=== PATIENT | male | born 1955 | race Hispanic/Latino ===

== ENCOUNTER 2017-02-09 09:47 | Inpatient (IN) | payer SELFPAY ==
[2017-02-09] MEDS ORDERED: hydrALAZINE 20 MG/ML VIAL ONE (10:32)
[2017-02-09 10:38] LABS: White Blood Cell (WBC) Count 7.3 thou/uL (4.8-10.8)
[2017-02-09 10:39] LABS: #Basophils 0.1 thou/uL (0.0-0.2); #Eosinphils 0.1 thou/uL (0.0-0.7); #Lymphocytes 2.6 thou/uL (1.20-3.40); #Monocytes 0.4 thou/uL (0.11-0.59); #Neutrophils 4.1 thou/uL (1.40-6.50); %Basophils 0.9 % (0.0-1.0); %Eosinophils 1.3 % (0.0-10.0); %Lymphocytes 35.9 % (21.0-51.0); Hematocrit 45.9 % (42.0-52.0); Mean Platelet Volume 8.9 fL (7.4-10.4)
[2017-02-09 10:40] LABS: PTT 31.2 SEC (22.9-36.1)
[2017-02-09 10:48] LABS: ALT (SGPT) 16 U/L (8-55); AST (SGOT) 17 U/L (5-34); Alkaline Phosphatase 109 U/L (40-150); Anion Gap 12 mmol/L (10-20); BUN (Urea Nitrogen) 25 mg/dL (8.4-25.7); Bilirubin, Total 0.5 mg/dL (0.2-1.2); Calc. Creatinine Clearance 0 mL/min (70-130); Calcium 9.9 mg/dL (7.8-10.44); Carbon Dioxide 26 mmol/L (23-31); Chloride 103 mmol/L (98-107); Estimated GFR-MDRD 35; Globulin 3.7 g/dL (2.4-3.5); Protein, Total 8.1 g/dL (5.8-8.1)
[2017-02-09 10:49] LABS: Troponin I Less than 0.010 ng/mL (< 0.028)
--- NOTE | 2017-02-09 10:59 | CT ---
HEAD CT WITHOUT CONTRAST: Date: 02/09/17 COMPARISON: None. HISTORY: Hypertension and blurred vision. TECHNIQUE: Serial axial CT imaging at 5 mm intervals from vertex through skull base without contrast. FINDINGS: There is encephalomalacia within the lateral aspect of the temporal lobe on the left, evidence of vivi or insult. There is evidence of prior mastoidectomy on the left. There is evidence of prior craniotomy on the left. There is no intracranial hemorrhage, midline shift, or mass effect. No displaced calvarial fracture is seen. IMPRESSION: Encephalomalacia noted within the temporal lobe on the left, evidence of prior insult. There is evide nce of prior left-sided mastoidectomy. No intracranial hemorrhage. POS: [facility]
[2017-02-09] MEDS ORDERED: niCARdipine 20MG In NaCl 20 MG/200 ML BAG ONE (11:06)
--- NOTE | 2017-02-09 11:22 | RAD ---
1 VIEW CHEST: Date: 02/09/17 HISTORY: Hypertension. COMPARISON: None. FINDINGS: Portable upright chest demonstrates normal cardiac silhouette. Pulmonary vessels and hilum are normal . No consolidation or mass. No pneumothorax or osseous abnormalities. IMPRESSION: No acute cardiopulmonary process. POS: [facility]
[2017-02-09 12:55] LABS: Acetaminophen Less than 6.0 mcg/mL (10.0-30.0); Salicylate Less than 8.0 mg/dL (15.0-30.0)
[2017-02-09] MEDS ORDERED: HYDROcodone/Acetaminophen 5/325 mg Tablet PO PRN (14:04)
[2017-02-09] MEDS ORDERED: Ondansetron HCl/PF 4 MG/2 ML Vial IVP PRN (14:04)
[2017-02-09] MEDS ORDERED: Acetaminophen 325 MG TAB PO PRN (14:04)
[2017-02-09] MEDS ORDERED: Dextrose 5% in Water 1,000 ML IV PRN (14:04)
[2017-02-09] MEDS ORDERED: hydrALAZINE 20 MG/ML VIAL SLOW IVP PRN (14:04)
[2017-02-09] MEDS ORDERED: Dextrose 50% Abboject 50 ML SYRINGE SLOW IVP PRN (14:04)
[2017-02-09] MEDS ORDERED: Metoprolol Tartrate 25 MG TAB PO SCH (14:15)
[2017-02-09] MEDS: Sodium Chloride 0.9% 1,000 ML IV SCH (14:37)
[2017-02-09] MEDS: HumaLOG 300 UNITS/3 ML VIAL SC PRN ×2 (14:53→21:22)
--- NOTE | 2017-02-09 15:57 | ULT ---
BILATEREAL RENAL ULTRASOUND: Date: 02/09/17 HISTORY: Acute renal failure. COMPARISON: None. TECHNIQUE: Sagittal and transverse imaging of the kidneys performed. FINDINGS: Right Kidney: No hydronephrosis. 5.2 x 10.2 x 5.8 cm. Left Kidney: No hydronephrosis. 4.9 x 11.9 x 7.4 cm. Both kidneys have a normal cortical echotexture. Pre-void volume is 619 cm2. IMPRESSION: 1. No evidence of hydronephrosis. 2. Pre-void volume of 619 cm2. If there is concern for bladder outlet obstruction, consider pre and post-void imaging. POS: [facility]
--- NOTE | 2017-02-09 15:58 | ULT ---
EXAM: CAROTID ULTRASOUND 02/09/17 HISTORY: Near syncope. COMPARISON: None. TECHNIQUE: Campos scale, color flow, doppler imaging with spectral waveform analysis is performed in the carotid v ertebral arteries. FINDINGS: RIGHT CAROTID: Minimal atherosclerotic disease in the internal carotid artery. Peak systolic velocity of the common carotid artery is 116.8 cm/s. Peak systolic velocity internal carotid artery is 67.8 cm/s. Systolic I CA to CCA ratio is 0.58. Mild atherosclerotic disease involving the carotid bifurcation and proximal internal carotid artery. Peak systolic velocity of the common carotid artery is 140.4 cm/s. Peak systolic velocity internal ca rotid artery is 78.1 cm/s. Systolic ICA to CCA ratio is 0.56. Antegrade flow in bilateral vertebral arteries. IMPRESSION: Elevation of peak systolic velocities of the common carotid artery suggesting moderate (50-69%) steno sis. Better interrogation with CT angiogram of the neck is recommended. POS: [facility]
--- NOTE | 2017-02-09 16:05 | MRI ---
BRAIN MRI WITHOUT CONTRAST: CLINICAL HISTORY: Stroke. FINDINGS: There is mild prominence of the ventricular system. Susceptibility artifact involves the left cerebr al hemisphere. There is no acute territorial infarction. Multifocal susceptibility is seen, notably involving the left aspect of calvarium and within the left cerebral hemisphere, corresponding to vivi or calvarial surgery and underlying encephalomalacia. Bilateral mastoids effusions are present. Javi tral skull base flow voids are patent. IMPRESSION: 1. Susceptibility artifact of the left aspect of the calvarium and left cerebrum as above. 2. There is no acute territorial infarction or intracranial mass effect. 3. Prominent bilateral mastoid opacification. Correlate clinically. POS: [facility]
--- NOTE | 2017-02-09 16:17 | HP ---
CHIEF COMPLAINT: Blurred vision and uncontrolled high blood pressure and hyperglycemia. HISTORY OF PRESENT ILLNESS: This is a 61-year-old pleasant gentleman who was apparently in his usual state of health 6 months back when he started having blurry vision on the right side of the eye to t he point that he could just see the shadows. He did not think much about it because as he could see from his left eye and was very highly functional until about a week back when he started having blurr y vision in his left eye, which progressively worsened to the point that he could not see. He was co ncerned and he went to [facility] for a checkup where they found his blood pressure to be about in t he 200s/100s and also having high sugars. They sent him out here for further evaluation and treatmen t. The patient denies any chest pains, headaches, fever or chills, nausea or vomiting. CT scan of t he head, which was done in the ER, was negative. Chest x-ray was negative. He has been admitted wit h control of the blood pressure and evaluation of the blurry vision. The patient was put on nicardip ine drip which dropped his blood pressure to 135/73, at which point it was stopped; it is still 135; it is around 130s right now. PAST MEDICAL HISTORY: None. PAST SURGICAL HISTORY: Left ear surgery. SOCIAL HISTORY: Drinks 6 beers a day. Denies smoking or doing recreational drugs. ALLERGIES: No known drug allergies. MEDICATIONS: None. FAMILY HISTORY: Negative for diabetes and hypertension. REVIEW OF SYSTEMS: Significant for blurred vision, otherwise no fever, no chills, no headache, no ap petite, no hearing loss, no latencies. No cough, no chest pain, diarrhea, dysuria, or polyuria. No memory or mood changes. No neck pain. PHYSICAL EXAMINATION: VITAL SIGNS: The patient's blood pressure is right now 136/75, he is afebrile, pulse is 87, breathin g comfortably on room air. GENERAL: The patient is lying in bed in no apparent distress. HEENT: Atraumatic and normocephalic. Pupils equally round, react to light. Extraocular movements a re intact. Mucous membranes are moist. NECK: Supple. No JVD. CHEST: Breath sounds are heard. No rales or rhonchi. HEART: S1, S2. No murmurs or gallops. ABDOMEN: Soft. EXTREMITIES: No cyanosis, clubbing, edema. Distal pulses present. NEUROLOGICAL: Has blurred vision and cannot read. Otherwise, no cranial nerve deficits. No sensori motor deficits. LABORATORY DATA: Potassium is 4.7, creatinine is 1.96. Troponin 0.01. CT scan of the head is negat kristopher. Chest x-ray negative. EKG normal sinus rhythm at 81. ASSESSMENT AND PLAN: 1. Hypertensive emergency with vision loss, status post nicardipine drip and right now, blood pressu re is controlled. I will put him on metoprolol 25 p.o. b.i.d., hydralazine p.r.n. for blood pressure control and monitor blood pressure this hospital stay. 2. Blurry vision. Ophthalmology has been consulted. We will also consult Neurology and do the MRI, carotid Doppler, and echocardiogram of the heart. 3. Acute renal failure. We will gently hydrate him and do an ultrasound of the kidneys and monitor that. 4. Alcohol use. The patient has been counseled. 5. Hyperglycemia, possibly new onset diabetes. We will do hemoglobin A1c, insulin sliding scale, an d once kidney function has improved, we will put him on p.o. oral hypoglycemics. 6. Sequential compression devices for deep venous thrombosis prophylaxis. I will follow the labs an d work with the consultants for further caring for the patient.
[2017-02-09] MEDS ORDERED: FLU VACC QS2017-18 36 mo. & older 0.5 ML SYRINGE IM ONE (16:30)
[2017-02-09 16:59] LABS: Bilirubin Negative (Negative); Blood, Urine Trace (Negative); Glucose, Urine (Dipstick) 500 mg/dL (Negative); Ketone, Urine Negative (Negative); Nitrite Negative (Negative); Protein, Urine (Dipstick) 100 mg/dL (Neg-Trace); Urobilinogen 0.2 mg/dL (0.2-1.0)
[2017-02-09 17:02] LABS: Bacteria/HPF None Seen HPF (None Seen); Hyaline Casts/LPF 0-3 HYALINE CAST LPF (0-3 Hyaline); RBC/HPF 0-3 HPF (0-3); Squamous Epithelial None Seen HPF (0-3); WBC/HPF None Seen HPF (0-3)
[2017-02-09 17:11] LABS: Amphetamine Not Detected (NotDetected); Methadone Not Detected (NotDetected); Methamphetamine Not Detected (NotDetected)
[2017-02-09 19:35] VITALS: BMI 23.4
[2017-02-09] MEDS: Metoprolol Tartrate 25 MG TAB PO SCH (21:12)
[2017-02-09] MEDS: Famotidine 20 MG TAB PO SCH (21:12)
[2017-02-09] MEDS: Docusate 100 MG CAP PO SCH (21:13)
--- NOTE | 2017-02-09 21:57 | CON ---
DATE OF CONSULTATION: 02/09/2017 CONSULTING PHYSICIAN: Hospitalist Service. IMPRESSION: 1. 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 2. Diabetes with some peripheral neuropathy. 3. Hypertension. PLAN: As per ophthalmology's recommendations. Mr. Russ is a 61-year-old man who has been having some progressive vision difficulties ove r the last 4 months. He was noticing some blurred vision in both eyes, which has steadily worsened. It seem to take a more acute turn for the worse, so he came in for evaluation. He has not had any f ocal neurologic symptoms. His CT of brain was unremarkable. He was noted to have elevated blood sug ar and a bit hypertensive with systolics around 185/99. He is not complaining of any headache, nause a, dizziness or orbital pain. He has reported some paresthesias in his feet. He is not reporting an y lateralized weakness or numbness. PAST MEDICAL HISTORY: Otherwise, negative. ALLERGIES: None reported. SOCIAL HISTORY: No illicit drug use. FAMILY HISTORY: Not obtained. REVIEW OF SYSTEMS: Otherwise, negative. PHYSICAL EXAMINATION: VITAL SIGNS: Blood pressure 185/99, pulse 67, respirations 20, saturations 97%. HEENT: Pupils are slightly irregular in size and nonreactive, appears to be some cataracts bilateral ly in gross inspection. Movements were intact. Oropharynx is clear. EXTREMITIES: No cyanosis, clubbing or edema. NEUROLOGIC: He was alert and cooperative. His speech is fluent and clear. Cranial nerve exam was n otable for severe vision loss with the ability to count fingers at 2 feet in the right eye and only p erceive movement in the left eye. Visual field testing showed circumferential constriction of the vi marcio to a tunnel vision type pattern. Remainder of the cranial nerves were intact. Motor exam showe d good strength bilaterally. Sensation was diminished proprioception in the feet. Reflexes were abs ent at the ankles. Plantar responses were downgoing. Gait was not tested. No abnormal movements we re seen. EKG: Normal sinus rhythm. SUMMARY: This is a 61-year-old gentleman presenting with progressive blindness in both eyes . CT of the brain only shows a tiny area of ischemic injury on the left that appears old in insignif icant quantity. His exam is otherwise nonfocal with what appeared to be this as an ophthalmologic is tiffanie which is being assessed by Dr. Burgos be available if there are any further questions.
[2017-02-10] MEDS: Sodium Chloride 0.9% 1,000 ML IV SCH ×2 (03:36→21:15)
[2017-02-10 04:17] LABS: #Basophils 0.1 thou/uL (0.0-0.2); #Eosinphils 0.1 thou/uL (0.0-0.7); #Lymphocytes 3.3 thou/uL (1.20-3.40); #Monocytes 0.7 thou/uL (0.11-0.59); %Basophils 0.6 % (0.0-1.0); %Eosinophils 1.2 % (0.0-10.0); %Lymphocytes 32.3 % (21.0-51.0); %Monocytes 6.7 % (0.0-10.0); Hematocrit 39.1 % (42.0-52.0); Mean Platelet Volume 8.7 fL (7.4-10.4); Red Blood Cell (RBC) Count 4.09 mill/uL (4.70-6.10); White Blood Cell (WBC) Count 10.2 thou/uL (4.8-10.8)
[2017-02-10 04:32] LABS: Anion Gap 6 mmol/L (10-20); BUN (Urea Nitrogen) 22 mg/dL (8.4-25.7); Calc. Creatinine Clearance 47 mL/min (70-130); Calcium 8.7 mg/dL (7.8-10.44); Carbon Dioxide 27 mmol/L (23-31); Chloride 107 mmol/L (98-107); Cholesterol 159 mg/dl (< 200 Desired); Estimated GFR-MDRD 44; LDL Cholesterol, Calculated 84 mg/dL
[2017-02-10] MEDS: Aspirin 81 mg Enteric Coated Tablet PO SCH (08:11)
[2017-02-10] MEDS: Metoprolol Tartrate 25 MG TAB PO SCH ×2 (08:11→21:13)
[2017-02-10] MEDS: Famotidine 20 MG TAB PO SCH (08:11)
[2017-02-10] MEDS: Docusate 100 MG CAP PO SCH ×2 (08:11→21:13)
[2017-02-10] MEDS: hydrALAZINE 20 MG/ML VIAL SLOW IVP PRN ×2 (10:07→17:12)
--- NOTE | 2017-02-10 12:44 | PDOC.PN ---
- Subjective Encounter Start Date: 02/10/17 Encounter Start Time: 12:42 Patient seen and examined. No new complaints. No overnight events - Objective MAR Reviewed: Yes Vital Signs & Weight: Vital Signs (12 hours) Temp Pulse Resp Pulse Ox 02/10/17 10:07 74 02/10/17 08:00 99.8 F H 74 18 95 02/10/17 07:00 99.8 F H 02/10/17 04:00 98.3 F Weight Admit Weight 149 lb 14.629 oz Weight 149 lb 14.629 oz Most Recent Monitor Data Heart Rate from ECG 62 NIBP 140/66 NIBP BP-Mean 77 Respiration from ECG 12 SpO2 96 I&O: 02/09/17 02/10/17 02/11/17 06:59 06:59 06:59 Intake Total 1485 240 Output Total 1500 200 Balance -15 40 Result Diagrams: 02/10/17 03:45 02/10/17 03:45 Additional Labs: Accuchecks 02/10/17 02/10/17 02/09/17 12:19 05:52 21:18 POC Glucose 243 H 134 H 170 H 02/09/17 14:45 POC Glucose 257 H Phys Exam - Physical Examination Constitutional: NAD blurred vision Neck: no JVD Respiratory: no rales Cardiovascular: no significant murmur Gastrointestinal: non-tender Musculoskeletal: pulses present Neurological: normal sensation Psychiatric: A&O x 3 Dx/Plan (1) Blurred vision Code(s): H53.8 - OTHER VISUAL DISTURBANCES Status: Acute (2) Hypertensive emergency Code(s): I16.1 - HYPERTENSIVE EMERGENCY Status: Acute (3) Diabetes mellitus Code(s): E11.9 - TYPE 2 DIABETES MELLITUS WITHOUT COMPLICATIONS Status: Acute - Plan * metoprolol and norvasc * start glipizide * arf- slightly better * cont ivf * f/u with dr calvo as out pt for blurred vision * diabetic education
[2017-02-10] MEDS: HumaLOG 300 UNITS/3 ML VIAL SC PRN ×2 (13:13→17:08)
[2017-02-10] MEDS ORDERED: Amlodipine 5 MG TAB PO SCH (13:15)
--- NOTE | 2017-02-10 15:43 | CON ---
DATE OF CONSULTATION: 02/10/2017 HISTORY OF PRESENT ILLNESS: This is a 61-year-old gentleman from [facility], who was admitted to the hospital with symptoms of apparently blurred vision. He was found to be hyperglycemic and hypertension. He normally drinks up to 6 beers on a regular basis, but no smoking. His only past issues has been the ear problem, had some surgery in the 1980s. He takes no medications. This morning, his vision is still blurred. PAST MEDICAL HISTORY: No diabetes or hypertension. Notable for previous surgery in the left ear. CURRENT MEDICATIONS: None. ALLERGIES: None. SOCIAL AND FAMILY HISTORY: Unremarkable. REVIEW OF SYSTEMS: Otherwise negative. PHYSICAL EXAMINATION: VITAL SIGNS: Temperature 99, blood [id number], sats are 100%, respiration 22. CHEST: Decreased breath sounds without any wheezing. CARDIAC: Normal S1, S2. No gallops. ABDOMEN: Soft, no masses. LABORATORY DATA: White count 10,000, H and H is 13 and 39, platelet count is normal. Creatinine 1.60. IMAGING: Chest x-ray, no acute infiltrates. CT brain, no acute changes seen. MRI was done subsequently. Basically, no acute changes were seen. IMPRESSION: 1. Blurred vision possibly secondary to diabetes. Awaiting report from ophthalmology. 2. Diabetes. 3. Hypertension. 4. Renal failure. PLAN: Pulmonary and Critical care will see while in the ICU. Controlled blood pressure. Diabetic medications. Supportive care. He can be transferred out of the ICU. We will follow while in the ICU. CHRISTY
[2017-02-11 05:16] LABS: #Basophils 0.1 thou/uL (0.0-0.2); #Eosinphils 0.1 thou/uL (0.0-0.7); #Lymphocytes 3.5 thou/uL (1.20-3.40); #Monocytes 0.9 thou/uL (0.11-0.59); #Neutrophils 8.5 thou/uL (1.40-6.50); %Basophils 0.4 % (0.0-1.0); %Lymphocytes 26.7 % (21.0-51.0); %Monocytes 6.8 % (0.0-10.0); Hematocrit 41.3 % (42.0-52.0); Mean Platelet Volume 9.1 fL (7.4-10.4); Red Blood Cell (RBC) Count 4.32 mill/uL (4.70-6.10)
[2017-02-11] MEDS: hydrALAZINE 20 MG/ML VIAL SLOW IVP PRN ×2 (05:25→10:00)
[2017-02-11 05:31] LABS: Anion Gap 10 mmol/L (10-20); BUN (Urea Nitrogen) 23 mg/dL (8.4-25.7); Calc. Creatinine Clearance 49 mL/min (70-130); Calcium 8.7 mg/dL (7.8-10.44); Carbon Dioxide 22 mmol/L (23-31); Chloride 108 mmol/L (98-107); Estimated GFR-MDRD 47
[2017-02-11] MEDS: Aspirin 81 mg Enteric Coated Tablet PO SCH (08:46)
[2017-02-11] MEDS: Metoprolol Tartrate 50 MG TAB PO SCH ×2 (08:46→20:35)
[2017-02-11] MEDS: Docusate 100 MG CAP PO SCH ×2 (08:47→20:35)
[2017-02-11] MEDS ORDERED: Amlodipine 5 MG TAB PO SCH (09:00)
[2017-02-11] MEDS: Sodium Chloride 0.9% 1,000 ML IV SCH ×2 (09:19→22:15)
[2017-02-11] MEDS: Famotidine 20 MG TAB PO SCH (09:20)
[2017-02-11] MEDS: HumaLOG 300 UNITS/3 ML VIAL SC PRN ×2 (10:59→16:29)
--- NOTE | 2017-02-11 16:54 | PDOC.PN ---
- Subjective Encounter Start Date: 02/11/17 Encounter Start Time: 16:52 Patient seen and examined. No new complaints. No overnight events c/o eye pain - Objective MAR Reviewed: Yes Vital Signs & Weight: Vital Signs (12 hours) Temp Pulse Pulse Pulse Resp BP BP 02/11/17 16:00 98.6 F 02/11/17 14:14 69 68 149/68 H 02/11/17 11:52 98.3 F 02/11/17 10:00 96 179/91 H 02/11/17 09:20 96 179/91 H 02/11/17 08:00 98.3 F 96 17 02/11/17 07:00 98.3 F 02/11/17 05:25 68 177/92 H BP Pulse Ox Pulse Ox Pulse Ox 02/11/17 16:00 02/11/17 14:14 120/69 97 97 02/11/17 11:52 02/11/17 10:00 02/11/17 09:20 02/11/17 08:00 98 02/11/17 07:00 02/11/17 05:25 Weight Admit Weight 149 lb 14.629 oz Weight 150 lb 2.157 oz Most Recent Monitor Data Heart Rate from ECG 64 NIBP 153/80 NIBP BP-Mean 92 Respiration from ECG 10 SpO2 96 I&O: 02/10/17 02/11/17 02/12/17 06:59 06:59 06:59 Intake Total 1485 1750 1200 Output Total 1500 2050 1600 Balance -15 300 -400 Result Diagrams: 02/11/17 04:17 02/11/17 04:17 Additional Labs: Accuchecks 02/11/17 02/11/17 02/11/17 16:27 10:56 05:30 POC Glucose 222 H 236 H 132 H 02/10/17 21:08 POC Glucose 178 H Phys Exam - Physical Examination Constitutional: NAD tearing noted Neck: no JVD Respiratory: no wheezing Cardiovascular: no significant murmur Gastrointestinal: non-tender Musculoskeletal: pulses present Neurological: moves all 4 limbs Psychiatric: A&O x 3 Dx/Plan (1) Blurred vision Code(s): H53.8 - OTHER VISUAL DISTURBANCES Status: Acute (2) Hypertensive emergency Code(s): I16.1 - HYPERTENSIVE EMERGENCY Status: Acute (3) Diabetes mellitus Code(s): E11.9 - TYPE 2 DIABETES MELLITUS WITHOUT COMPLICATIONS Status: Acute - Plan * f/u dr calvo plan * control htn and dm * add norvasc and metoprolol
--- NOTE | 2017-02-11 17:02 | PRG ---
DATE OF SERVICE: 02/11/2017 SUBJECTIVE: Awake, alert, responsive. OBJECTIVE: VITAL SIGNS: Blood pressure is 170/83, SATs 97%, respirations 18. CHEST: Decreased breath sounds, no wheezing. CARDIAC: Normal S1, S2. ABDOMEN: Soft. No masses. LABORATORY DATA: White count normal. H and H unremarkable. Creatinine 1.53. IMPRESSION: 1. Vision problems, etiology unclear. 2. Hypertension. 3. Diabetes. PLAN: Continue blood pressure medication. Supportive care. He can be transferred out of the ICU. We will follow at a distance once he is out of the ICU.
[2017-02-11] MEDS: Amlodipine 5 MG TAB PO SCH (20:35)
[2017-02-11] MEDS ORDERED: HumaLOG 300 UNITS/3 ML VIAL SC PRN (21:39)
--- NOTE | 2017-02-12 08:00 | PDOC.PN ---
- Subjective Encounter Start Date: 02/12/17 Encounter Start Time: 07:58 Mr. Russ was seen in follow-up of vision loss, and hypertensive urgency. He says he notes some pain in his left eye, which started yesterday. He also says that eye is tearing more as well. He denies any other problems, such as chest pain or shortness of breath. - Objective MAR Reviewed: Yes Vital Signs & Weight: Vital Signs (12 hours) Temp Pulse Resp BP BP Pulse Ox 02/12/17 04:57 98.2 F 65 18 144/75 H 98 02/12/17 00:56 98.3 F 58 L 18 133/76 97 02/11/17 20:35 88 155/82 H 02/11/17 20:00 97.8 F 88 18 155/82 H 95 Weight Admit Weight 149 lb 14.629 oz Weight 149 lb 9.6 oz Most Recent Monitor Data Heart Rate from ECG 69 NIBP 131/63 NIBP BP-Mean 73 Respiration from ECG 11 SpO2 95 I&O: 02/11/17 02/12/17 02/13/17 06:59 06:59 06:59 Intake Total 1750 3643 Output Total 2050 2200 Balance -300 1443 Result Diagrams: 02/11/17 04:17 02/11/17 04:17 Additional Labs: Accuchecks 02/12/17 02/11/17 02/11/17 04:54 20:24 16:27 POC Glucose 111 H 228 H 222 H 02/11/17 10:56 POC Glucose 236 H Phys Exam - Physical Examination + erythema, both sclera, and some Neck: no nodes Respiratory: no wheezing, no rales, no rhonchi, clear to auscultation bilateral Cardiovascular: RRR, no significant murmur, no rub Gastrointestinal: soft, non-tender, positive bowel sounds Musculoskeletal: no edema Dx/Plan (1) Vitreous hemorrhage Code(s): H43.10 - VITREOUS HEMORRHAGE, UNSPECIFIED EYE Status: Acute (2) Diabetes mellitus Code(s): E11.9 - TYPE 2 DIABETES MELLITUS WITHOUT COMPLICATIONS Status: Acute (3) Hypertensive emergency Code(s): I16.1 - HYPERTENSIVE EMERGENCY Status: Acute - Plan * Vireous Hemorrhage- patient is now having some pain in the left eye, not sure if this is expected with Vitreous Hemorrhage- will discuss with Dr. Beverly in the AM * HTN- better controlled on the current regimen, amlodipine, and Metoprolol * DM- also better now on glipizide * Dyslipidemia- will add Simvastatin * Hopefully home tomorrow, if no additional work-up or inpatient treatment required from Ophthalmology standpoint.
[2017-02-12] MEDS: Docusate 100 MG CAP PO SCH (08:01)
[2017-02-12] MEDS: Aspirin 81 mg Enteric Coated Tablet PO SCH (08:01)
[2017-02-12] MEDS: Metoprolol Tartrate 50 MG TAB PO SCH (08:01)
[2017-02-12] MEDS: Amlodipine 5 MG TAB PO SCH (08:02)
[2017-02-12] MEDS: Famotidine 20 MG TAB PO SCH (08:02)
[2017-02-12 08:06] VITALS: BP 138/74
[2017-02-12] MEDS: Sodium Chloride 0.9% 1,000 ML IV SCH (08:09)
[2017-02-12 08:33] VITALS: TEMP 98.3
--- NOTE | 2017-02-12 13:34 | PRG ---
DATE OF SERVICE: 02/12/2017 SUBJECTIVE: Leif Russ this morning is awake, alert, and responsive. PHYSICAL EXAMINATION: VITAL SIGNS: Blood pressure is improved to 138/74, temperature 98. Has had difficulty breathing. CHEST: No wheezing or crackles. CARDIAC: Normal S1 and S2. IMPRESSION: Uncontrolled hypertension, blurred vision, and diabetes. DISPOSITION: Discharge home. Follow up with outpatient primary care physician.
--- NOTE | 2017-02-12 14:51 | DIS ---
DATE OF ADMISSION: 02/09/2017 DATE OF DISCHARGE: 02/12/2017 PRIMARY CARE PHYSICIAN: None. DISCHARGE DISPOSITION: Home. PRIMARY DISCHARGE DIAGNOSES: 1. Hypertensive emergency. 2. Diabetes mellitus type 2, newly diagnosed. 3. Vitreous hemorrhage. 4. Dyslipidemia. DISCHARGE MEDICATIONS: Include amlodipine 5 mg twice a day, simvastatin 20 mg at bedtime, Lopressor 50 mg twice a day, glipizide 2.5 mg twice daily and aspirin 81 mg daily. Please note the patient was not put on an WIL inhibitor due to renal insufficiency. PROCEDURES DONE DURING ADMISSION: The patient had an MRI of the brain and there was no evidence of a cute infarct or intracranial mass. The patient had an echocardiogram demonstrated a normal ejection fraction estimated at 50%-55%. There was some E-to-A flow reversal suggestive of diastolic dysfuncti on. The patient had a renal ultrasound showing no hydronephrosis and both kidneys had normal cortica l echotexture. CODE STATUS: Full code. ALLERGIES: No known drug allergies. HOSPITAL COURSE: Mr. Russ is a pleasant 61-year-old gentleman who was admitted after he had the gr adual onset of vision loss in his left eye. He had lost vision in his right eye about 6 months prior . He was seen in the emergency room due to concerns for possible stroke. CT scan of the brain was n egative; however, it was noted that his blood pressure was extremely elevated with systolics in the 2 00 range. He was placed in the ICU for hypertensive emergency and neurologist was consulted. He had an MRI of the brain which did not demonstrate any acute stroke or bleed. It is felt that the vision problem was primarily and ophthalmological issue. Dr. Beverly was consulted with Ophthalmology. He examined the patient and determined that he has severe vitreous hemorrhage. This was the cause of t he vision loss. Unfortunately, the damages likely already done due to the hypertension and diabetes. However, he did recommend that the patient see a retinal specialist in the outpatient setting and t his was communicated to both myself as well as the patient. The vision loss was not due to stroke an d the patient did not have an acute stroke. He was started on antihypertensive medications as well a s medications for diabetes mellitus. At the time of discharge, his blood pressure was much improved down to 138/74 and his blood sugars are ranging from 170-130 range. He was also placed on a simvasta tin as his LDL was 84. He was counseled on the need for continued outpatient followup and was subseq uently discharged home on 02/12/2017.
[2017-02-12] MEDS ORDERED: Atorvastatin Calcium 10 MG TAB PO SCH (21:00)
== END 2017-02-12 12:11 | disposition home or self-care (01) | DRG 305 ==
LOC: ERS 09:47 → CCU 11:46 → T4-A 02-11 18:11
PROVIDERS: ADMIT Student in an Organized Health Care Education/Training Program; ATTEND Student in an Organized Health Care Education/Training Program
DX: I16.1 Hypertensive emergency (principal); N17.9 Acute kidney failure, unspecified; E11.42 Type 2 diabetes mellitus with diabetic polyneuropathy; H43.13 Vitreous hemorrhage, bilateral; E11.319 Type 2 diabetes mellitus with unspecified diabetic retinopathy without macular edema; H53.8 Other visual disturbances; I10 Essential (primary) hypertension; E78.5 Hyperlipidemia, unspecified; I16.0 Hypertensive urgency
CPT/HCPCS: 36415; 36416; 70450; 70551; 71010; 76770; 80048; 80053; 80061; 80306; 80307; 81001; 82553; 84484; 85025; 85610; 85652; 85730; 86140; 93005; 93306; 93880; 96365; 96375; G8978-GP-CJ; G8979-GP-CI; G8987-GO-CJ; G8988-GO-CI; G8996-GN-CH; G8997-GN-CH; J0360

== ENCOUNTER 2017-05-26 16:58 | Inpatient (IN) | payer SELFPAY ==
[~2017-05-26 16:58] MED LIST: Heparin 1,000 UNITS/ML VIAL ONE
[2017-05-26 18:03] LABS: #Basophils 0.1 thou/uL (0.0-0.2); #Eosinphils 0.1 thou/uL (0.0-0.7); #Lymphocytes 1.9 thou/uL (1.20-3.40); #Monocytes 0.8 thou/uL (0.11-0.59); #Neutrophils 9.7 thou/uL (1.40-6.50); %Basophils 0.5 % (0.0-1.0); %Eosinophils 0.6 % (0.0-10.0); %Lymphocytes 15.4 % (21.0-51.0); %Neutrophils 77.4 % (42.0-75.0); Hemoglobin 12.3 g/dL (14.0-18.0); Mean Corpuscular HGB CONC 34.4 g/dL (32.0-36.0); Mean Corpuscular Volume 93.1 fl (80.0-94.0); Mean Platelet Volume 7.4 fL (7.4-10.4); Platelet Count 281 thou/uL (130-400); RBC Distribution Width 11.6 % (11.5-14.5); Red Blood Cell (RBC) Count 3.85 mill/uL (4.70-6.10); White Blood Cell (WBC) Count 12.6 thou/uL (4.8-10.8)
[2017-05-26 18:22] LABS: ALT (SGPT) 19 U/L (8-55); AST (SGOT) 17 U/L (5-34); Albumin 4.7 g/dL (3.4-4.8); Alkaline Phosphatase 107 U/L (40-150); Anion Gap 13 mmol/L (10-20); BUN (Urea Nitrogen) 33 mg/dL (8.4-25.7); Bilirubin, Total 0.6 mg/dL (0.2-1.2); Calc. Creatinine Clearance 0 mL/min (70-130); Calcium 10.4 mg/dL (7.8-10.44); Carbon Dioxide 25 mmol/L (23-31); Chloride 102 mmol/L (98-107); Estimated GFR-MDRD 27; Globulin 4.6 g/dL (2.4-3.5); Glucose 136 mg/dL (80-115); Potassium 4.7 mmol/L (3.5-5.1); Protein, Total 9.3 g/dL (5.8-8.1); Sodium 135 mmol/L (136-145)
[2017-05-26] MEDS ORDERED: Cefepime 2 GM/10 ML SYR ONE (19:18)
--- NOTE | 2017-05-26 20:19 | RAD ---
THREE VIEWS LEFT FOOT 05/26/17 HISTORY: Cellulitis left foot. FINDINGS: There is no evidence of a fracture, dislocation, or other osseous abnormality. Vascular calcification s are seen about the hindfoot. IMPRESSION: No acute osseous abnormality. POS: [facility]
[2017-05-26] MEDS ORDERED: Fentanyl 100 MCG/2 ML VIAL SLOW IVP PRN (23:37)
[2017-05-26] MEDS ORDERED: Ondansetron ODT 4 MG TAB SL PRN (23:41)
[2017-05-26] MEDS ORDERED: Ondansetron HCl/PF 4 MG/2 ML Vial IVP PRN (23:41)
[2017-05-26] MEDS ORDERED: Acetaminophen 325 MG TAB PO PRN (23:41)
[2017-05-26] MEDS ORDERED: Sodium Chloride 0.45% 1,000 ML IV SCH (23:45)
[2017-05-27 00:34] VITALS: BMI 23.6
[2017-05-27] MEDS ORDERED: Dextrose 50% Abboject 50 ML SYRINGE SLOW IVP PRN (01:31)
[2017-05-27] MEDS ORDERED: Mag-Al 1200 mg/1200 mg/30 ML UDCUP PO PRN (01:31)
[2017-05-27] MEDS ORDERED: Zolpidem Tartrate 5 MG TAB PO PRN (01:31)
[2017-05-27] MEDS ORDERED: Senokot 8.6 MG TAB PO PRN (01:31)
[2017-05-27] MEDS ORDERED: Milk Of Magnesia 30 ML UDCUP PO PRN (01:31)
[2017-05-27] MEDS ORDERED: Dextrose 5% in Water 1,000 ML IV PRN (01:31)
[2017-05-27] MEDS ORDERED: Ondansetron HCl/PF 4 MG/2 ML Vial IVP PRN (01:31)
[2017-05-27] MEDS ORDERED: HumaLOG 300 UNITS/3 ML VIAL SC PRN (01:31)
--- NOTE | 2017-05-27 01:56 | HP ---
PRIMARY CARE PHYSICIAN: [facility] (Dr. Nany Chris) DATE OF SERVICE 05/26/2017 REASON FOR ADMISSION: Acute on chronic kidney failure, left second toe cellulitis, rule out osteomye litis. HISTORY OF PRESENT ILLNESS: A 62-year-old male with history of diabetes, hypertension, rn documentation chapo kidney disease, who came to emergency room for evaluation of left second toe swelling, erythema, and tenderness. Patient reports that he cut his toenail too short and after that he noticed erythema and increasing swelling over right second toe and that erythema was also progressing to dorsum aspec t of the left foot. Patient denies any trauma. He was feeling subjective chills, but no fever. He denies any drainage from the toe. His intensity of pain is about 5/10. He denies any UTI symptoms. He denies any constipation, diarrhea, melena, hematochezia. He denies taking any NSAID. Today, patient went to see primary care physician and after the primary care physician's office, he w as instructed to go to emergency room. In emergency room, x-ray foot did not show any osteomyelitis, but he had elevated inflammatory marker. Patient is being admitted to medical floor for further opal luation and treatment. ALLERGIES: No known drug allergy. CURRENT HOME MEDICATIONS: Based on our hospital record, patient is on following medication juan peng, patient did not bring any medication with him, so unable to verify. Amlodipine 5 mg p.o. b.i.d ., aspirin 81 mg p.o. daily, Glucotrol-XL 2.5 mg p.o. b.i.d., metoprolol 50 mg p.o. b.i.d., Zocor 20 mg p.o. at bedtime. REVIEW OF SYSTEMS: Please see my HPI for pertinent positive and negative. All other review of syste ms reviewed and negative except as mentioned in the HPI: Constitutional: Weight loss or gain, abili ty to conduct usual activities. Skin: Rash, itching. Eyes: Double vision, pain. ENT/Mouth: Nose bleeding, neck stiffness, pain, tenderness. Cardiovascular: Palpitations, dyspnea on exertion, ort hopnea. Respiratory: Shortness of breath, wheezing, cough, hemoptysis, fever, or night sweats. Gas trointestinal: Poor appetite, abdominal pain, heartburn, nausea, vomiting, constipation, or diarrhea . Genitourinary: Urgency, frequency, dysuria, nocturia. Musculoskeletal: Pain, swelling. Neurolo gic/Psychiatric: Anxiety, depression. Allergy/Immunologic: Skin rash, bleeding tendency. PAST MEDICAL HISTORY: Diabetes type 2 on oral hypoglycemic agent, hypertension on amlodipine, legal blindness bilateral, dyslipidemia. PAST SURGICAL HISTORY: Left ear surgery. PAST PSYCHIATRIC HISTORY: Reviewed and negative. SOCIAL HISTORY: Patient drinks alcohol socially once a week. He denies any smoking. He denies any other illicit drug abuse. FAMILY HISTORY: Diabetes, hypertension runs among several family members. No strong family history of coronary artery disease, stroke, or cancer. EMERGENCY ROOM COURSE: Patient is given vancomycin and cefepime, IV fluids given. PHYSICAL EXAMINATION: VITAL SIGNS: On arrival blood pressure 152/73, pulse 65, respiratory rate 16, temperature 98.6, satu ration 98% on room air, weight 69 kilograms. GENERAL: Patient is currently alert, awake, no obvious acute distress. HEAD: Normocephalic, atraumatic. EYES: Pupils round, reactive to light. Extraocular muscle intact. ENT: Oropharynx within normal limits. Moist mucous membrane. No oral lesion, no pharyngeal erythem a, no exudate. NECK: Supple, no JVD, no thyromegaly, no carotid bruit, no jugular venous distention. LUNGS: Clear to auscultation without any rhonchi or rales. CARDIAC: S1, S2 regular without any murmur. ABDOMEN: Soft, bowel sounds present, nontender, nondistended. No organomegaly, no mass, no suprapub ic tenderness. BACK: Unremarkable, no CVA tenderness. EXTREMITIES: Upper extremity passive movement of all joints are normal. Lower extremity no edema. Good peripheral pulsation. The only abnormal finding is mild erythema over dorsal aspect of the left foot as well as left second toe is swollen, erythematous, and mild tenderness. NEUROLOGIC: Nonfocal examination. Patient moves all 4 limbs. Plantar, bilateral flexor. PSYCHIATRIC: Normal affect. SKIN: Patient does have cellulitis of left second toe. HEMATOLOGIC: No lymphadenopathy. SIGNIFICANT LABORATORY DATA: CBC: WBC 12.6, hemoglobin 12.3, platelet 281. ESR 23. BMP: Sodium 1 35, potassium 4.7, chloride 102, carbon dioxide 25, BUN 33, creatinine 2.41, glucose 136, calcium 10. 4. Lactic acid 1.0. LFT: AST 17, ALT 19, alkaline phosphatase 107, albumin 4.7. CRP 10.15. IMPRESSION: 1. Acute on chronic kidney failure, baseline chronic kidney disease, stage 3. 2. Left second toe cellulitis with left foot cellulitis, rule out osteomyelitis of second toe. 3. Diabetes, type 2, hypertension, dyslipidemia. PLAN: Admission to medical floor. MRI of left foot to rule out osteomyelitis. Empiric antibiotic t herapy with vancomycin and Zosyn. Pain control with pain medication. Wound care team consultation t omorrow morning. IV fluid at 75 mL per hour. Repeat labs tomorrow morning. Deep venous thrombosis prophylaxis, heparin 5000 units subcutaneous twice daily. GI prophylaxis, Pep eduard 20 mg p.o. daily. CODE STATUS: The patient is FULL CODE. Patient does not have any surrogate decision maker. Disposition plan based on clinical course. We are expecting patient's stay in hospital 24-48 hours. Depending upon clinical course, we may decide to change to inpatient status if needed. We will keep this patient as inpatient status, because we are expecting that patient will need antibiotic therapy more than 2 midnights.
[2017-05-27] MEDS: Sodium Chloride 0.9% 1,000 ML IV SCH ×2 (05:02→18:35)
[2017-05-27 05:47] LABS: #Basophils 0.1 thou/uL (0.0-0.2); #Eosinphils 0.2 thou/uL (0.0-0.7); #Lymphocytes 2.4 thou/uL (1.20-3.40); #Monocytes 0.9 thou/uL (0.11-0.59); #Neutrophils 6.4 thou/uL (1.40-6.50); %Basophils 0.7 % (0.0-1.0); %Eosinophils 1.5 % (0.0-10.0); %Lymphocytes 24.5 % (21.0-51.0); %Neutrophils 64.3 % (42.0-75.0); Hemoglobin 9.6 g/dL (14.0-18.0); Mean Corpuscular HGB CONC 35.8 g/dL (32.0-36.0); Mean Corpuscular Hemoglobin 32.6 pg (27.0-31.0); Mean Corpuscular Volume 91.2 fl (80.0-94.0); Mean Platelet Volume 7.5 fL (7.4-10.4); Platelet Count 217 thou/uL (130-400); RBC Distribution Width 11.5 % (11.5-14.5); Red Blood Cell (RBC) Count 2.95 mill/uL (4.70-6.10); White Blood Cell (WBC) Count 9.9 thou/uL (4.8-10.8)
[2017-05-27] MEDS: Piperacillin/Tazobactam 3.375 GM in Sodium Chloride 0.9% 100 ML IVPB SCH ×4 (06:02→23:28)
[2017-05-27 06:33] LABS: ALT (SGPT) 13 U/L (8-55); AST (SGOT) 13 U/L (5-34); Albumin 3.2 g/dL (3.4-4.8); Alkaline Phosphatase 81 U/L (40-150); Anion Gap 8 mmol/L (10-20); BUN (Urea Nitrogen) 28 mg/dL (8.4-25.7); Bilirubin, Total 0.3 mg/dL (0.2-1.2); Calc. Creatinine Clearance 38 mL/min (70-130); Calcium 8.6 mg/dL (7.8-10.44); Carbon Dioxide 24 mmol/L (23-31); Chloride 107 mmol/L (98-107); Estimated GFR-MDRD 36; Globulin 3.1 g/dL (2.4-3.5); Glucose 144 mg/dL (80-115); Protein, Total 6.3 g/dL (5.8-8.1); Sodium 135 mmol/L (136-145)
[2017-05-27] MEDS: Aspirin 81 mg Enteric Coated Tablet PO SCH (08:52)
[2017-05-27] MEDS: Famotidine 20 MG TAB PO SCH (08:52)
[2017-05-27] MEDS: Heparin 5,000 UNITS/ML VIAL SC SCH ×2 (08:53→19:47)
[2017-05-27] MEDS ORDERED: Amlodipine 5 MG TAB PO SCH (09:00)
[2017-05-27] MEDS ORDERED: Metoprolol Tartrate 50 MG TAB PO SCH (09:00)
--- NOTE | 2017-05-27 14:37 | PDOC.PN ---
- Subjective Encounter Start Date: 05/27/17 Encounter Start Time: 14:36 Subjective: feels better. toe wound non painful.no fever/chills - Objective Resuscitation Status: Resuscitation Status FULL:Full Resuscitation MAR Reviewed: Yes Vital Signs & Weight: Vital Signs (12 hours) Temp Pulse Resp BP Pulse Ox 05/27/17 11:49 98.9 F 88 16 177/103 H 96 05/27/17 11:43 98.2 F 60 16 187/89 H 99 05/27/17 08:52 66 05/27/17 08:00 98.5 F 66 18 166/76 H 95 05/27/17 04:00 99.0 F 65 18 153/73 H 96 Weight Admit Weight 150 lb 6.4 oz Weight 150 lb 6.4 oz I&O: 05/26/17 05/27/17 05/28/17 06:59 06:59 06:59 Intake Total 1375 Output Total 625 Balance 750 Result Diagrams: 05/27/17 04:02 05/27/17 04:02 Additional Labs: Accuchecks 05/27/17 05/27/17 05/27/17 13:01 11:43 04:23 POC Glucose 188 H 235 H 158 H Microbiology 05/26/17 19:19 Venous blood - Right Arm Blood Culture - Preliminary Specimen has been received and culture in progress. No Growth to date. 05/26/17 18:45 Venous blood - Left Arm Blood Culture - Preliminary Specimen has been received and culture in progress. No Growth to date. 05/26/17 18:45 Foot - Pending Bacterial Culture - Preliminary Phys Exam - Physical Examination Constitutional: NAD HEENT: PERRLA, moist MMs, sclera anicteric, oral pharynx no lesions Neck: no nodes, no JVD, supple, full ROM Respiratory: no wheezing, no rales, no rhonchi, clear to auscultation bilateral Cardiovascular: RRR, no significant murmur, no rub, gallop Gastrointestinal: soft, non-tender, no distention, positive bowel sounds Musculoskeletal: no edema, pulses present left 2nd toe w edema & shallow ulcer w purulent material on top Neurological: non-focal, normal sensation, moves all 4 limbs Psychiatric: normal affect, A&O x 3 Skin: no rash Dx/Plan (1) Diabetic infection of left foot Code(s): E11.69 - TYPE 2 DIABETES MELLITUS WITH OTHER SPECIFIED COMPLICATION; L08.9 - LOCAL INFECTION OF THE SKIN AND SUBCUTANEOUS TISSUE, UNSP Status: Acute (2) MADELINE (acute kidney injury) Code(s): N17.9 - ACUTE KIDNEY FAILURE, UNSPECIFIED Status: Acute Comment: Jaspal CKD -3 (3) HTN (hypertension) Code(s): I10 - ESSENTIAL (PRIMARY) HYPERTENSION Status: Chronic (4) Diabetes mellitus Code(s): E11.9 - TYPE 2 DIABETES MELLITUS WITHOUT COMPLICATIONS Status: Chronic - Plan continue antibiotics, DVT proph w/SCDs MRI foot to r/o OM.cont ABx empirically -: Pt educated about importance of diabetic control. -: will need to add Insulin for poor control. -: wound care consulted.if MRI abnl-will consult GS for I&D -: am labs.HD stable.monitor renal Fx.restart home meds as below * . Review of Systems - Review of Systems Constitutional: negative: fever, chills, sweats, weakness, malaise, other ENT: negative: Ear Pain, Ear Discharge, Nose Pain, Nose Discharge, Nose Congestion, Mouth Pain, Mouth Swelling, Throat Pain, Throat Swelling, Other Respiratory: negative: Cough, Dry, Shortness of Breath, Hemoptysis, SOB with Excertion, Pleuritic Pain, Sputum, Wheezing Cardiovascular: negative: chest pain, palpitations, orthopnea, paroxysmal nocturnal dyspnea, edema, light headedness, other Gastrointestinal: negative: Nausea, Vomiting, Abdominal Pain, Diarrhea, Constipation, Melena, Hematochezia, Other Genitourinary: negative: Dysuria, Frequency, Incontinence, Hematuria, Retention , Other Musculoskeletal: negative: Neck Pain, Shoulder Pain, Arm Pain, Back Pain, Hand Pain, Leg Pain, Foot Pain, Other Skin: negative: Rash, Lesions, Eliezer, Bruising, Other Neurological: negative: Weakness, Numbness, Incoordination, Change in Speech, Confusion, Seizures, Other - Medications/Allergies Allergies/Adverse Reactions: Allergies Allergy/AdvReac Type Severity Reaction Status Date / Time No Known Drug Allergies Allergy Verified 05/27/17 00:29 Medications: Current Medications Acetaminophen (Tylenol) 650 mg PO Q4H PRN PRN Reason: Headache/Fever or Pain Hydrocodone Bitart/Acetaminophen ([place] 5/325) 1 tab PO Q4H PRN PRN Reason: Moderate Pain (4-6) Al Hydroxide/Mg Hydroxide (Maalox) 30 ml PO Q6H PRN PRN Reason: Heartburn or Indigestion Amlodipine Besylate (Norvasc) 10 mg PO DAILY [facility] Aspirin (Ecotrin) 81 mg PO DAILY [facility] Last Admin: 05/27/17 08:52 Dose: 81 mg Atorvastatin Calcium (Lipitor) 10 mg PO HS [facility] Dextrose/Water (Dextrose 50%) 25 gm SLOW IVP PRN PRN PRN Reason: Hypoglycemia Famotidine (Pepcid) 20 mg PO DAILY [facility] Last Admin: 05/27/17 08:52 Dose: 20 mg Fentanyl (Sublimaze) 25 mcg SLOW IVP Q3H PRN PRN Reason: FOR SEVERE PAIN 7-10 Glipizide (Glucotrol) 5 mg PO DAILY-[facility] Glucagon (Glucagon) 1 mg IM PRN PRN PRN Reason: Hypoglycemia Heparin Sodium (Porcine) (Heparin) 5,000 units SC BID [facility] Last Admin: 05/27/17 08:53 Dose: 5,000 units Dextrose/Water (D5w) 1,000 mls @ 0 mls/hr IV .Q0M PRN; As Directed PRN Reason: Hypoglycemia Sodium Chloride (Normal Saline 0.9%) 1,000 mls @ 75 mls/hr IV .[id number] [facility] Last Admin: 05/27/17 05:02 Dose: Not Given Piperacillin Sod/Tazobactam (Sod 3.375 gm/ Sodium Chloride) 100 mls @ 200 mls/ hr IVPB Q6HR [facility] Last Admin: 05/27/17 13:08 Dose: 100 mls Vancomycin HCl 750 mg/ Sodium (Chloride) 250 mls @ 250 mls/hr IVPB 2100 [facility] Insulin Human Lispro (Humalog) 0 units SC .MODERATE SLIDING SC PRN PRN Reason: Moderate Correctional Scale Insulin Human Lispro (Humalog) 0 units SC .BEDTIME SLIDING SC PRN PRN Reason: Bedtime Correctional Scale Magnesium Hydroxide (Milk Of Magnesium) 30 ml PO DAILYPRN PRN PRN Reason: Constipation Metoprolol Tartrate (Lopressor) 100 mg PO BID [facility] Miscellaneous Medication (Pharmacy To Dose) 1 each IVPB ONE PRN PRN Reason: Pharmacy to dose Stop: 06/06/17 01:35 Ondansetron HCl (Zofran) 4 mg IVP Q6H PRN PRN Reason: Nausea/Vomiting Senna (Senokot) 2 tab PO HSPRN PRN PRN Reason: Constipation Zolpidem Tartrate (Ambien) 5 mg PO HSPRN PRN PRN Reason: Insomnia
--- NOTE | 2017-05-27 14:40 | MRI ---
MRI OF THE LEFT FOOT WITHOUT CONTRAST: COMPARISON: Foot radiograph 05/26/17. HISTORY: The patient got a towel caught between the 2nd and 3rd toes and pulled a nail off. The patient has b ruising and swelling in the 2nd and 3rd digits as well as the left forefoot. The patient is diabetic . Evaluate for osteomyelitis of the 2nd toe. TECHNIQUE: Multiplanar, multisequence MR images were obtained of the left lobe without contrast. FINDINGS: There is edema in the 2nd toe. The distal phalanx of the 2nd toe is partially absent, which correspo nds to the radiographic finding. There is abnormal low T1 and high T2 signal in the middle and dista l phalanges of the second toe. No marrow signal abnormality is seen more proximally in the foot or w ithin the 1st or third toes. There is edema within the foot without focal fluid collection. IMPRESSION: There is osteomyelitis of the middle and distal phalanges of the 2nd toe. POS: CALEB
[2017-05-27] MEDS: HumaLOG 300 UNITS/3 ML VIAL SC PRN (17:10)
[2017-05-27] MEDS: Atorvastatin Calcium 10 MG TAB PO SCH (19:48)
[2017-05-27] MEDS: Metoprolol Tartrate 100 MG TAB PO SCH (19:49)
[2017-05-27] MEDS ORDERED: Vancomycin HCl 750 MG in Sodium Chloride 0.9% 250 ML 250 ML IVPB SCH (21:00)
[2017-05-28] MEDS: Piperacillin/Tazobactam 3.375 GM in Sodium Chloride 0.9% 100 ML IVPB SCH ×2 (05:40→13:23)
[2017-05-28] MEDS: Sodium Chloride 0.9% 1,000 ML IV SCH ×2 (05:42→16:24)
[2017-05-28] MEDS: Metoprolol Tartrate 100 MG TAB PO SCH ×2 (08:45→19:25)
[2017-05-28] MEDS: Famotidine 20 MG TAB PO SCH (08:46)
[2017-05-28] MEDS: Amlodipine 10 MG TAB PO SCH (08:46)
[2017-05-28] MEDS: glipiZIDE 5 MG TAB PO SCH (08:49)
[2017-05-28] MEDS: Heparin 5,000 UNITS/ML VIAL SC SCH ×2 (08:49→19:25)
[2017-05-28] MEDS: Aspirin 81 mg Enteric Coated Tablet PO SCH (08:49)
[2017-05-28] MEDS: Insulin NPH/Reg Insulin Hm 300 UNITS/3 ML VIAL SC SCH ×2 (13:23→17:16)
--- NOTE | 2017-05-28 13:24 | PDOC.PN ---
- Subjective Encounter Start Date: 05/28/17 Encounter Start Time: 13:23 Subjective: feels ok. wants some local care for foot -: reassured that wound care is following - Objective Resuscitation Status: Resuscitation Status FULL:Full Resuscitation MAR Reviewed: Yes Vital Signs & Weight: Vital Signs (12 hours) Temp Pulse Resp BP BP Pulse Ox 05/28/17 11:00 98.0 F 62 18 152/89 H 98 05/28/17 08:46 59 L 195/84 H 05/28/17 08:00 98 F 63 16 195/84 H 99 05/28/17 04:00 98.3 F 58 L 18 156/68 H 98 Weight Admit Weight 150 lb 6.4 oz Weight 150 lb 6.4 oz I&O: 05/27/17 05/28/17 05/29/17 06:59 06:59 06:59 Intake Total 1375 1938 Output Total 625 1350 Balance 750 588 Result Diagrams: 05/27/17 04:02 05/27/17 04:02 Additional Labs: Accuchecks 05/28/17 05/28/17 05/27/17 11:39 04:45 19:59 POC Glucose 150 H 109 157 H 05/27/17 16:11 POC Glucose 204 H Microbiology 05/26/17 19:19 Venous blood - Right Arm Blood Culture - Preliminary Specimen has been received and culture in progress. No Growth to date. 05/26/17 18:45 Venous blood - Left Arm Blood Culture - Preliminary Specimen has been received and culture in progress. No Growth to date. 05/26/17 18:45 Venous blood - Left Arm Blood Culture - Preliminary NO GROWTH AT 48 HOURS 05/26/17 18:45 Foot - Pending Bacterial Culture - Preliminary Streptococcus Group G 05/26/17 18:45 Foot - Pending Bacterial Culture - Preliminary Streptococcus Group G Laboratory Tests 05/28/17 08:19 Hemoglobin A1c 6.0 Radiology Reviewed by me: Yes (MRI- 2nd left toe osteomyelitis) Phys Exam - Physical Examination Constitutional: NAD HEENT: PERRLA, moist MMs, sclera anicteric, oral pharynx no lesions Neck: no nodes, no JVD, supple, full ROM Respiratory: no wheezing, no rales, no rhonchi, clear to auscultation bilateral Cardiovascular: RRR, no significant murmur Gastrointestinal: soft, non-tender, no distention, positive bowel sounds Musculoskeletal: no edema, pulses present Neurological: non-focal, normal sensation, moves all 4 limbs 2nd toe dressed Psychiatric: normal affect, A&O x 3 Skin: no rash Dx/Plan (1) Osteomyelitis of toe of left foot Code(s): M86.9 - OSTEOMYELITIS, UNSPECIFIED Status: Acute (2) Diabetic infection of left foot Code(s): E11.69 - TYPE 2 DIABETES MELLITUS WITH OTHER SPECIFIED COMPLICATION; L08.9 - LOCAL INFECTION OF THE SKIN AND SUBCUTANEOUS TISSUE, UNSP Status: Acute (3) MADELINE (acute kidney injury) Code(s): N17.9 - ACUTE KIDNEY FAILURE, UNSPECIFIED Status: Acute Comment: Jaspal CKD -3 (4) HTN (hypertension) Code(s): I10 - ESSENTIAL (PRIMARY) HYPERTENSION Status: Chronic (5) Diabetes mellitus Code(s): E11.9 - TYPE 2 DIABETES MELLITUS WITHOUT COMPLICATIONS Status: Chronic - Plan continue antibiotics, out of bed/ambulate, DVT proph w/SCDs Cont broad spectrum antibiotics.appreciate GS consult.will need amputation -: follow final Cx results.consult ID for ABx duration/choice for DC -: emphasized the need for Op insulin.pt is blind & can't see well for injecti -: cont ISS,glipizide.supportive care -: home meds as below.HD stable.am labs * . Review of Systems - Review of Systems Constitutional: negative: fever, chills, sweats, weakness, malaise, other ENT: negative: Ear Pain, Ear Discharge, Nose Pain, Nose Discharge, Nose Congestion, Mouth Pain, Mouth Swelling, Throat Pain, Throat Swelling, Other Respiratory: negative: Cough, Dry, Shortness of Breath, Hemoptysis, SOB with Excertion, Pleuritic Pain, Sputum, Wheezing Cardiovascular: negative: chest pain, palpitations, orthopnea, paroxysmal nocturnal dyspnea, edema, light headedness, other Gastrointestinal: negative: Nausea, Vomiting, Abdominal Pain, Diarrhea, Constipation, Melena, Hematochezia, Other Genitourinary: negative: Dysuria, Frequency, Incontinence, Hematuria, Retention , Other Musculoskeletal: negative: Neck Pain, Shoulder Pain, Arm Pain, Back Pain, Hand Pain, Leg Pain, Foot Pain, Other Skin: negative: Rash, Lesions, Eliezer, Bruising, Other Neurological: negative: Weakness, Numbness, Incoordination, Change in Speech, Confusion, Seizures, Other - Medications/Allergies Allergies/Adverse Reactions: Allergies Allergy/AdvReac Type Severity Reaction Status Date / Time No Known Drug Allergies Allergy Verified 05/27/17 00:29 Medications: Current Medications Acetaminophen (Tylenol) 650 mg PO Q4H PRN PRN Reason: Headache/Fever or Pain Hydrocodone Bitart/Acetaminophen ([place] 5/325) 1 tab PO Q4H PRN PRN Reason: Moderate Pain (4-6) Al Hydroxide/Mg Hydroxide (Maalox) 30 ml PO Q6H PRN PRN Reason: Heartburn or Indigestion Amlodipine Besylate (Norvasc) 10 mg PO DAILY [facility] Last Admin: 05/28/17 08:46 Dose: 10 mg Aspirin (Ecotrin) 81 mg PO DAILY [facility] Last Admin: 05/28/17 08:49 Dose: 81 mg Atorvastatin Calcium (Lipitor) 10 mg PO [facility] Last Admin: 05/27/17 19:48 Dose: 10 mg Clonidine (Catapres) 0.1 mg PO Q4H PRN PRN Reason: SBP>160 Dextrose/Water (Dextrose 50%) 25 gm SLOW IVP PRN PRN PRN Reason: Hypoglycemia Famotidine (Pepcid) 20 mg PO DAILY [facility] Last Admin: 05/28/17 08:46 Dose: 20 mg Fentanyl (Sublimaze) 25 mcg SLOW IVP Q3H PRN PRN Reason: FOR SEVERE PAIN 7-10 Glipizide (Glucotrol) 5 mg PO DAILY-[facility] Last Admin: 05/28/17 08:49 Dose: 5 mg Glucagon (Glucagon) 1 mg IM PRN PRN PRN Reason: Hypoglycemia Heparin Sodium (Porcine) (Heparin) 5,000 units SC BID [facility] Last Admin: 05/28/17 08:49 Dose: 5,000 units Hydralazine HCl (Apresoline) 10 mg SLOW IVP Q4H PRN PRN Reason: SBP>170 Dextrose/Water (D5w) 1,000 mls @ 0 mls/hr IV .Q0M PRN; As Directed PRN Reason: Hypoglycemia Sodium Chloride (Normal Saline 0.9%) 1,000 mls @ 75 mls/hr IV .[id number] [facility] Last Admin: 05/28/17 05:42 Dose: Not Given Piperacillin Sod/Tazobactam (Sod 3.375 gm/ Sodium Chloride) 100 mls @ 200 mls/ hr IVPB Q6HR [facility] Last Admin: 05/28/17 05:40 Dose: 100 mls Vancomycin HCl 750 mg/ Sodium (Chloride) 250 mls @ 250 mls/hr IVPB 2100 [facility] Last Admin: 05/27/17 19:48 Dose: 250 mls Insulin Human Isoph/Insulin Regular (Humulin 70/30) 10 units SC [facility] Insulin Human Lispro (Humalog) 0 units SC .MODERATE SLIDING SC PRN PRN Reason: Moderate Correctional Scale Last Admin: 05/27/17 17:10 Dose: 4 unit Insulin Human Lispro (Humalog) 0 units SC .BEDTIME SLIDING SC PRN PRN Reason: Bedtime Correctional Scale Magnesium Hydroxide (Milk Of Magnesium) 30 ml PO DAILYPRN PRN PRN Reason: Constipation Metoprolol Tartrate (Lopressor) 100 mg PO BID [facility] Last Admin: 05/28/17 08:45 Dose: 100 mg Miscellaneous Medication (Pharmacy To Dose) 1 each IVPB ONE PRN PRN Reason: Pharmacy to dose Stop: 06/06/17 01:35 Ondansetron HCl (Zofran) 4 mg IVP Q6H PRN PRN Reason: Nausea/Vomiting Senna (Senokot) 2 tab PO HSPRN PRN PRN Reason: Constipation Zolpidem Tartrate (Ambien) 5 mg PO HSPRN PRN PRN Reason: Insomnia
[2017-05-28] MEDS: cefTRIAXone\\ROCEPHIN 2 GM in Sodium Chloride 0.9% 100 ML IVPB SCH (14:52)
[2017-05-28] MEDS: metroNIDAZOLE 250 MG TAB PO SCH ×2 (14:52→19:25)
--- NOTE | 2017-05-28 16:39 | CON ---
DATE OF CONSULTATION: 05/28/2017 REASON FOR CONSULTATION: Osteomyelitis, left second toe. HISTORY OF PRESENT ILLNESS: A 62-year-old patient who has a history of type 2 diabetes mellitus and hypertension, recently admitted in January with hypertensive emergency. He had an echocardiogram done, which showed an EF 50% to 55% and significant vision loss associated with vitreous hemorrhage after that, patient developed inflammatory changes of left second toe, which led to the current admission. Patient had an MRI, which showed evidence of osteomyelitis of the second toe, mid, and distal phalanx. The bone x-ray did not show any obvious evidence of osteolysis. Surgeon had been consulted and he was scheduled for resection; however, patient wants to try conservative management if possible. No headaches, chronic blindness. No sore throat, aphasia, dysphagia. No neck pain. No toothache. No vomiting, hematemesis, melena, hematochezia, no diarrhea, no dyspnea, or chest pain, no abdominal pain, no genitourinary symptoms. No other joint symptoms. PAST MEDICAL HISTORY: Hypertension, type 2 diabetes, renal insufficiency, neuropathy. ALLERGIES: None. MEDICATIONS: Currently [place], Maalox, Norvasc, Ecotrin, Lipitor, Catapres, dextrose, Pepcid, Sublimaze, glucagon, heparin, Humulin insulin, Zosyn, and vancomycin. PHYSICAL EXAMINATION: VITAL SIGNS: T-max 98 to 99, blood pressure 115/89, pulse 62, respirations 18, O2 saturation 98%. SKIN: Shows the area of erythema and moderate swelling of the left second toe. There is area of blistering at the tip. I was not able to probe any exposed bone with a Q-tip at that site. No other skin lesions, no lymphadenopathy. HEENT: Ocular movements conjugate. Oral cavity moist. Numerous teeth in place with quite a bit of decay and gum disease. NECK: Supple, jugular distention, or carotid bruits. LUNGS: Symmetric clear breath sounds. HEART: S1, S2, regular rate. No S3 or S4. ABDOMEN: Soft, not distended or tender. No ascites. No bladder distention. EXTREMITIES: No joint inflammatory activity. Pulses are not palpable in dorsalis pedis or popliteals. Cap refill is around 4 seconds. Moves extremities equally. NEUROLOGIC: Cognitive function appears to be intact. LABORATORY DATA: White cell count down from 12 to 9.9, hemoglobin 9.6, platelets 217. Sodium 135, creatinine 1.92, GFR 36 with normal liver profile, albumin 3.2. Microbiology with group G Streptococcus from foot sample. Two sets of blood cultures thus far negative. ASSESSMENT: Type 2 diabetes with peripheral vascular disease and osteomyelitis , left second toe. DISCUSSION: Patient needs a vascular evaluation and may need revascularization depending on findings or at least an attempt at revascularization. He may have microvascular disease or may not require revascularization. It is important to determine the status of his blood supply cause that would affect the likelihood of improvement with conservative management. I have explained to him that in view of the lack of bone destruction on plain films and a lack of obvious exposure of bone on probing of the distal aspect of his toe, we might be able to salvage the second toe with antimicrobial therapy alone. He seems to be inclined to opt for that option at this point in time. We will order a duplex ultrasound arterial if not done so yet. PICC line placement and treat him with Rocephin plus oral Flagyl for a protracted period of time. manager practice consultation. CHRISTY
[2017-05-28] MEDS: Atorvastatin Calcium 10 MG TAB PO SCH (19:25)
[2017-05-29 04:37] LABS: INR-International Normal Ratio 1.1; Prothrombin Time 14.1 SEC (12.0-14.7)
--- NOTE | 2017-05-29 06:32 | CON ---
DATE OF CONSULTATION: 05/28/2017 REASON FOR CONSULTATION: Left second toe osteomyelitis. HISTORY OF PRESENT ILLNESS: Mr. Torres is a 62-year-old diabetic male who was admitted to the [facility] for cellulitis of the left second toe. Plain films did not show any evidence of osteomyelitis, but an MRI came back positive for osteomyelitis of the middle and distal phalanges of the second toe. T he patient states that when he took a shower and was drying his feet with a towel, the toenail caught on the towel and just ripped off. He was not really aware of anything going on because he is legall y blind and has almost no sensation in his feet, but his sister noticed that the toe that did not loo k good, so he went to the doctor and was admitted to the hospital from there. He denies any fevers. He was unsure whether there has been any drainage. He has felt like there are symptoms going on wit h his toe, but does not have severe pain. ALLERGIES: There are no known drug allergies. PAST MEDICAL HISTORY: Includes longstanding diabetes, hypertension, hyperlipidemia, chronic renal in sufficiency. PAST SURGICAL HISTORY: He has had ear surgery, but no other surgeries. SOCIAL HISTORY: He does not smoke or use illicit drugs. He drinks occasionally but not to excess. FAMILY HISTORY: He does have a strong family history of diabetes. OUTPATIENT MEDICATIONS: Include amlodipine, aspirin, glipizide, metoprolol and simvastatin. INPATIENT MEDICATIONS: Include amlodipine, aspirin, atorvastatin, Rocephin, Pepcid, glipizide, slidi ng scale insulin, subcu heparin, metoprolol, Flagyl, and multiple p.r.n. He has also received Zosyn and vancomycin during his hospitalization; although, these have since been discontinued. REVIEW OF SYSTEMS: Ten-system review of systems is negative except for HPI. PHYSICAL EXAMINATION: VITAL SIGNS: The patient has been afebrile since his admission, heart rate 61, respirations 18, 96% saturated on room air, blood pressure 158/74. GENERAL: Reveals a pleasant gentleman in no acute distress. He is not flushed or toxic in appearanc e. He is not jaundiced or icteric. HEENT: Unremarkable. NECK: Supple, without lymphadenopathy or thyroid nodules. HEART: Regular in its rate and rhythm without murmurs, rubs, or gallops. LUNGS: Clear to auscultation bilaterally. ABDOMEN: Soft, nontender, nondistended, without palpable masses or hernias. EXTREMITIES: Warm with normal capillary refill. His left second toe is erythematous and swollen. T here is an open wound on the tip of the toe with some expressible exudate, but no fluctuance, no palp able bone. There is some mild erythema and swelling in the toes as well. I cannot appreciate any pe brenda pulses, but it does have a palpable popliteal pulse and a good femoral pulse. He does have perip heral neuropathy and visual impairment, but no other focal neurologic findings. PSYCHIATRIC: Alert, oriented, and appropriate. LABORATORY DATA: White count was initially elevated at 12.6 with hemoglobin 9.9, hematocrit is 26.9, and platelets are 217. BUN and creatinine are elevated at 28 and 1.92, but this is down somewhat fr om admission when they were 33 and 2.41. Blood sugar has been fairly well controlled, ranging from 1 09 to 204. Hemoglobin A1c is 6. IMAGING: Plain films and MRI images were reviewed and I agree with the written report. ASSESSMENT: Osteomyelitis of the left second toe. I recommended amputation for treatment since he h as significant impairment including visual disability and dense peripheral neuropathy. I am worried that the infection could get worse quickly and he would not notice it. I do think he has adequate ci rculation to heal an amputation, but I am concerned about his abnormal vascular exams, and I have rec ommended noninvasive arterial studies to evaluate this further. We will need to get Vascular Surgery involved if these do not indicate adequate perfusion for healing; although, an angiogram at this poi nt could cause further damage to his kidney, so that needs to be taken into account as well. The maribel le and his family are willing to consider amputation but would like to speak with Dr. More of Infe ctious Disease first to consider medical management. I told them that I have had some patients who h ave chosen that option, but it requires long-term IV antibiotics and I expressed concern about of the possibility of infection to progress before noticing it. Dr. More was contacted and spoke with the patient and his family. They continued to be desire medical management, so he is going to place a P ICC line and arrange for long-term antibiotics. He has a very involved family and they are going to keep a close eye on him. I will continue to follow the patient with the wound care team. He may req uire some debridement of his toe since he is not proceeding with amputation.
[2017-05-29] MEDS: Sodium Chloride 0.9% 1,000 ML IV SCH ×2 (07:30→20:33)
[2017-05-29] MEDS: Heparin 5,000 UNITS/ML VIAL SC SCH ×2 (09:45→20:33)
[2017-05-29] MEDS: Amlodipine 10 MG TAB PO SCH (09:45)
[2017-05-29] MEDS: glipiZIDE 5 MG TAB PO SCH (09:45)
[2017-05-29] MEDS: Insulin NPH/Reg Insulin Hm 300 UNITS/3 ML VIAL SC SCH ×3 (09:45→17:15)
[2017-05-29] MEDS: Aspirin 81 mg Enteric Coated Tablet PO SCH (09:45)
[2017-05-29] MEDS: Metoprolol Tartrate 100 MG TAB PO SCH ×2 (09:47→20:33)
[2017-05-29] MEDS: metroNIDAZOLE 250 MG TAB PO SCH ×3 (09:48→20:33)
--- NOTE | 2017-05-29 09:59 | ULT ---
LEFT LOWER EXTREMITY ARTERIAL DOPPLER STUDY: Date: 05/29/17 Arteries of left lower extremity were evaluated with color Doppler and spectral analysis, and velocit y recordings at all segments. INDICATION: Left lower extremity decreased pulses and evidence of left lower extremity peripheral vascular diseas e. FINDINGS: Left common femoral artery shows normal triphasic waveform and normal velocity. Profunda shows a biphasic waveform. Left superficial femoral artery shows normal triphasic waveform and normal velocity. Left popliteal artery shows a triphasic waveform and normal velocity. The left anterior tibial artery, posterior tibial artery, and dorsal pedis artery all exhibit a monop hasic waveform. IMPRESSION: Doppler and waveform analysis indicates moderate peripheral vascular disease below the knee in the le ft lower extremity. Findings could be further characterized with CT angio runoff as indicated. POS: CALEB
[2017-05-29] MEDS: Famotidine 20 MG TAB PO SCH (10:01)
--- NOTE | 2017-05-29 11:21 | SPC ---
PROCEDURE PERIPHERAL INSERTION CENTRAL CATHETER: INDICATION: Need for IV antibiotic treatment access. FINDINGS: A single-lumen 5 Japanese PICC line was placed in the left upper extremity and to the left upper extrem ity into the basilic vein under ultrasound guidance for [id number] confirmation. The tip is posit ioned in the SVC. EXPOSURE: 1797 mGy*^cm2. 0.3 minute fluoro. PROCEDURE NOTE: The left upper extremity was prepped and draped in a sterile manner. Ultrasound was utilized to asse ss venous structures. The left basilic vein in the mid humerus was chosen for puncture. Local anest hesia was administered with Lidocaine. The vein was punctured ultrasound guidance using micropunctur e technique. Wire is introduced through the needle into the vein and the tip is positioned in the SV C. The catheter length was then measured and cut. A sheath was placed. Catheter was advanced over the wire. [place] sheath was removed. The wire was removed. The catheter was flushed and secured with a sterile dressing. There were no problems or complications. POS: RUBY
--- NOTE | 2017-05-29 13:26 | PDOC.PN ---
- Subjective Encounter Start Date: 05/29/17 Encounter Start Time: 13:24 Subjective: feels Ok. no new complaints. test results discussedw multiple family memebr -: no fever/chills.No foot pain - Objective Resuscitation Status: Resuscitation Status FULL:Full Resuscitation MAR Reviewed: Yes Vital Signs & Weight: Vital Signs (12 hours) Temp Pulse Resp BP BP Pulse Ox 05/29/17 09:45 72 05/29/17 08:00 97.9 F 72 16 180/87 H 98 05/29/17 07:20 98.4 F 54 L 16 05/29/17 04:00 98.4 F 54 L 16 168/76 H 97 Weight Admit Weight 150 lb 6.4 oz Weight 150 lb 6.4 oz I&O: 05/28/17 05/29/17 05/30/17 06:59 06:59 06:59 Intake Total 1938 2535 480 Output Total 1350 900 Balance 588 1635 480 Result Diagrams: 05/27/17 04:02 05/27/17 04:02 Additional Labs: Accuchecks 05/29/17 05/29/17 05/28/17 11:27 05:08 20:40 POC Glucose 134 H 123 H 189 H 05/28/17 16:36 POC Glucose 122 H Microbiology 05/26/17 18:45 Foot - Pending Bacterial Culture - Final Streptococcus Group G 05/26/17 19:19 Venous blood - Right Arm Blood Culture - Preliminary NO GROWTH AT 48 HOURS 05/26/17 18:45 Venous blood - Left Arm Blood Culture - Preliminary NO GROWTH AT 48 HOURS Radiology Reviewed by me: Yes (Arterial doppler-LLE art disease below knee) Phys Exam - Physical Examination Constitutional: NAD HEENT: PERRLA, moist MMs, sclera anicteric, oral pharynx no lesions Neck: no nodes, no JVD, supple, full ROM Respiratory: no wheezing, no rales, no rhonchi, clear to auscultation bilateral Cardiovascular: RRR, no significant murmur, no rub, gallop Gastrointestinal: soft, non-tender, no distention, positive bowel sounds Musculoskeletal: no edema left 2 nd toe under dressing Neurological: non-focal, normal sensation, moves all 4 limbs Psychiatric: normal affect, A&O x 3 Skin: no rash Dx/Plan (1) Osteomyelitis of toe of left foot Code(s): M86.9 - OSTEOMYELITIS, UNSPECIFIED Status: Acute (2) MADELINE (acute kidney injury) Code(s): N17.9 - ACUTE KIDNEY FAILURE, UNSPECIFIED Status: Acute Comment: Jaspal CKD -3 (3) HTN (hypertension) Code(s): I10 - ESSENTIAL (PRIMARY) HYPERTENSION Status: Chronic (4) Diabetes mellitus Code(s): E11.9 - TYPE 2 DIABETES MELLITUS WITHOUT COMPLICATIONS Status: Chronic (5) Diabetic infection of left foot Code(s): E11.69 - TYPE 2 DIABETES MELLITUS WITH OTHER SPECIFIED COMPLICATION; L08.9 - LOCAL INFECTION OF THE SKIN AND SUBCUTANEOUS TISSUE, UNSP Status: Acute (6) PAD (peripheral artery disease) Code(s): I73.9 - PERIPHERAL VASCULAR DISEASE, UNSPECIFIED Status: Chronic - Plan plan discussed w/ family, continue antibiotics, PT/OT, out of bed/ambulate, DVT proph w/SCDs Cont ABX per ID.PICC placed as needs mcfp IV ABx -: Arterial study shows poor flow below knee.may need angiogram/plasty -: will defer to ID & GS.?needs Amputation if poor blood supply to toe -: cont ISS w glipizide.blood sugar under better control -: am labs .monitor renal Fx * . Review of Systems - Review of Systems Constitutional: negative: fever, chills, sweats, weakness, malaise, other ENT: negative: Ear Pain, Ear Discharge, Nose Pain, Nose Discharge, Nose Congestion, Mouth Pain, Mouth Swelling, Throat Pain, Throat Swelling, Other Respiratory: negative: Cough, Dry, Shortness of Breath, Hemoptysis, SOB with Excertion, Pleuritic Pain, Sputum, Wheezing Cardiovascular: negative: chest pain, palpitations, orthopnea, paroxysmal nocturnal dyspnea, edema, light headedness, other Gastrointestinal: negative: Nausea, Vomiting, Abdominal Pain, Diarrhea, Constipation, Melena, Hematochezia, Other Genitourinary: negative: Dysuria, Frequency, Incontinence, Hematuria, Retention , Other Musculoskeletal: negative: Neck Pain, Shoulder Pain, Arm Pain, Back Pain, Hand Pain, Leg Pain, Foot Pain, Other Skin: negative: Rash, Lesions, Eliezer, Bruising, Other Neurological: negative: Weakness, Numbness, Incoordination, Change in Speech, Confusion, Seizures, Other - Medications/Allergies Allergies/Adverse Reactions: Allergies Allergy/AdvReac Type Severity Reaction Status Date / Time No Known Drug Allergies Allergy Verified 05/27/17 00:29 Medications: Current Medications Acetaminophen (Tylenol) 650 mg PO Q4H PRN PRN Reason: Headache/Fever or Pain Hydrocodone Bitart/Acetaminophen ([place] 5/325) 1 tab PO Q4H PRN PRN Reason: Moderate Pain (4-6) Al Hydroxide/Mg Hydroxide (Maalox) 30 ml PO Q6H PRN PRN Reason: Heartburn or Indigestion Amlodipine Besylate (Norvasc) 10 mg PO DAILY [facility] Last Admin: 05/29/17 09:45 Dose: 10 mg Aspirin (Ecotrin) 81 mg PO DAILY [facility] Last Admin: 05/29/17 09:45 Dose: 81 mg Atorvastatin Calcium (Lipitor) 10 mg PO HS [facility] Last Admin: 05/28/17 19:25 Dose: 10 mg Clonidine (Catapres) 0.1 mg PO Q4H PRN PRN Reason: SBP>160 Dextrose/Water (Dextrose 50%) 25 gm SLOW IVP PRN PRN PRN Reason: Hypoglycemia Famotidine (Pepcid) 20 mg PO DAILY [facility] Last Admin: 05/29/17 10:01 Dose: 20 mg Fentanyl (Sublimaze) 25 mcg SLOW IVP Q3H PRN PRN Reason: FOR SEVERE PAIN 7-10 Glipizide (Glucotrol) 5 mg PO DAILY-AC [facility] Last Admin: 05/29/17 09:45 Dose: 5 mg Glucagon (Glucagon) 1 mg IM PRN PRN PRN Reason: Hypoglycemia Heparin Sodium (Porcine) (Heparin) 5,000 units SC BID [facility] Last Admin: 05/29/17 09:45 Dose: 5,000 units Hydralazine HCl (Apresoline) 10 mg SLOW IVP Q4H PRN PRN Reason: SBP>170 Dextrose/Water (D5w) 1,000 mls @ 0 mls/hr IV .Q0M PRN; As Directed PRN Reason: Hypoglycemia Sodium Chloride (Normal Saline 0.9%) 1,000 mls @ 75 mls/hr IV .[id number] [facility] Last Admin: 05/29/17 07:30 Dose: 1,000 mls Ceftriaxone Sodium 2 gm/ (Sodium Chloride) 100 mls @ 200 mls/hr IVPB Q24HR [facility] Last Admin: 05/28/17 14:52 Dose: 100 mls Insulin Human Isoph/Insulin Regular (Humulin 70/30) 10 units SC [facility] Last Admin: 05/29/17 12:20 Dose: 10 units Insulin Human Lispro (Humalog) 0 units SC .MODERATE SLIDING SC PRN PRN Reason: Moderate Correctional Scale Last Admin: 05/27/17 17:10 Dose: 4 unit Insulin Human Lispro (Humalog) 0 units SC .BEDTIME SLIDING SC PRN PRN Reason: Bedtime Correctional Scale Magnesium Hydroxide (Milk Of Magnesium) 30 ml PO DAILYPRN PRN PRN Reason: Constipation Metoprolol Tartrate (Lopressor) 100 mg PO BID [facility] Last Admin: 05/29/17 09:47 Dose: 100 mg Metronidazole (Flagyl) 250 mg PO TID [facility] Last Admin: 05/29/17 09:48 Dose: 250 mg Miscellaneous Medication (Pharmacy To Dose) 1 each IVPB ONE PRN PRN Reason: Pharmacy to dose Stop: 06/06/17 01:35 Ondansetron HCl (Zofran) 4 mg IVP Q6H PRN PRN Reason: Nausea/Vomiting Senna (Senokot) 2 tab PO HSPRN PRN PRN Reason: Constipation Zolpidem Tartrate (Ambien) 5 mg PO HSPRN PRN PRN Reason: Insomnia
[2017-05-29] MEDS: cefTRIAXone\\ROCEPHIN 2 GM in Sodium Chloride 0.9% 100 ML IVPB SCH (16:19)
--- NOTE | 2017-05-29 19:54 | PRG ---
DATE OF SERVICE: 05/29/2017 SUBJECTIVE: Mr. Torres is feeling well. He denies any pain. He has been afebrile. OBJECTIVE: VITAL SIGNS: Vital signs have been okay. His blood pressure has been a little elevated. I debrided his toe today with the Wound Care team since he opted against amputation. Some skin was removed from the tip of the left second toe. After removing the skin, a sinus tract into th e pulpy tissues of the distal toe revealed bone and the base of the wound as well as some expressible purulence. I informed the patient and his family of these findings and contact Dr. More. I doubt that conservative management will be adequate. Wound Care packs to the wound. I continue to recomme nd amputation. He did undergo a lower extremity ultrasound today which showed monophasic waveforms i n the anterior tibial, posterior tibial, and dorsalis pedis arteries, although he had triphasic wavef orms at the left popliteal artery. This correlates with the physical findings of a normal popliteal pulse, but absent pedal pulses. Given distal disease, his revascularization options are likely limit ed, but Vascular Surgery consult can be entertained. His BUN and creatinine have come down somewhat and were 28 and 1.92 yesterday.
[2017-05-29] MEDS: Atorvastatin Calcium 10 MG TAB PO SCH (20:33)
--- NOTE | 2017-05-29 23:00 | PRG ---
DATE OF SERVICE: 05/29/2017 SUBJECTIVE: Leif Torres is doing about the same. Dr. Celeste did some more debridement and found th at the bone at the tip of the toe was exposed and no change in symptoms otherwise. PHYSICAL EXAMINATION: VITAL SIGNS: Normal except for elevation in systolic blood pressure. GENERAL: No distress. LUNGS: Clear. HEART: S1, S2, regular rate. ABDOMEN: Soft. MUSCULOSKELETAL: Toe about the same as yesterday; not as swollen though. LABORATORY DATA AND IMAGING DATA: White cell count 9.9, hemoglobin is at 9.6. Cultures are noted be fore. The patient had a lower extremity ultrasound which showed evidence of moderate arterial diseas e. ASSESSMENT AND DISCUSSION: Type 2 diabetes with osteomyelitis of left second toe and peripheral vasc ular disease. We will consult with Vascular Surgery regarding possible evaluation. He does have a g lomerular filtration rate less than 50 and it may be too risky in terms of kidney function to perform angiograms at this point in time. In that case, might have to proceed with amputation. He is very hesitant to do that though we may have to continue with our plan on conservative management as shantel ray previously. He is felt to be a candidate for a vascular study with angiogram and then further in tervention according to findings.
[2017-05-30 04:47] LABS: #Basophils 0.1 thou/uL (0.0-0.2); #Eosinphils 0.2 thou/uL (0.0-0.7); #Monocytes 0.7 thou/uL (0.11-0.59); #Neutrophils 5.3 thou/uL (1.40-6.50); %Basophils 0.6 % (0.0-1.0); %Eosinophils 2.8 % (0.0-10.0); %Lymphocytes 24.4 % (21.0-51.0); %Monocytes 8.2 % (0.0-10.0); %Neutrophils 63.9 % (42.0-75.0); Hemoglobin 10.2 g/dL (14.0-18.0); Mean Corpuscular HGB CONC 35.9 g/dL (32.0-36.0); Mean Corpuscular Hemoglobin 32.4 pg (27.0-31.0); Mean Corpuscular Volume 90.5 fl (80.0-94.0); Mean Platelet Volume 6.9 fL (7.4-10.4); Platelet Count 245 thou/uL (130-400); RBC Distribution Width 11.6 % (11.5-14.5); Red Blood Cell (RBC) Count 3.16 mill/uL (4.70-6.10); White Blood Cell (WBC) Count 8.3 thou/uL (4.8-10.8)
[2017-05-30 05:05] LABS: Anion Gap 11 mmol/L (10-20); BUN (Urea Nitrogen) 24 mg/dL (8.4-25.7); Calc. Creatinine Clearance 46 mL/min (70-130); Carbon Dioxide 19 mmol/L (23-31); Chloride 112 mmol/L (98-107); Estimated GFR-MDRD 44; Glucose 152 mg/dL (80-115); Potassium 4.1 mmol/L (3.5-5.1); Sodium 138 mmol/L (136-145)
[2017-05-30] MEDS: HumaLOG 300 UNITS/3 ML VIAL SC PRN (05:31)
[2017-05-30] MEDS: hydrALAZINE 20 MG/ML VIAL SLOW IVP PRN (05:34)
[2017-05-30] MEDS: metroNIDAZOLE 250 MG TAB PO SCH ×3 (08:38→21:17)
[2017-05-30] MEDS: Metoprolol Tartrate 100 MG TAB PO SCH ×2 (08:38→21:16)
[2017-05-30] MEDS: Heparin 5,000 UNITS/ML VIAL SC SCH ×2 (08:38→21:15)
[2017-05-30] MEDS: Famotidine 20 MG TAB PO SCH (08:38)
[2017-05-30] MEDS: Aspirin 81 mg Enteric Coated Tablet PO SCH (08:38)
[2017-05-30] MEDS: Amlodipine 10 MG TAB PO SCH (08:38)
[2017-05-30] MEDS: glipiZIDE 5 MG TAB PO SCH (08:38)
[2017-05-30] MEDS: Insulin NPH/Reg Insulin Hm 300 UNITS/3 ML VIAL SC SCH ×3 (08:39→17:59)
[2017-05-30] MEDS: Sodium Chloride 0.9% 1,000 ML IV SCH ×3 (08:48→21:27)
[2017-05-30] MEDS: Lisinopril 5 MG TAB PO SCH ×2 (09:15→21:16)
--- NOTE | 2017-05-30 12:17 | CON ---
DATE OF CONSULTATION: 05/30/2017 REASON FOR CONSULTATION: Evaluate patient with peripheral vascular disease for possible revasculariz ation options. HISTORY OF PRESENT ILLNESS: Mr. Torres is a 62-year-old gentleman, who was admitted with left second toe gangrene. He has had a lower extremity ultrasound performed, which shows triphasic signals from femoral to popliteal. The tibials are monophasic on the left. He has never had symptoms of peripheral vascular disease - no claudication, rest pain or other tissue loss up until now. He has recently been diagnosed as being diabetic. He also recently been diagnos ed with chronic renal insufficiency with a creatinine of 2.4 at admission, it is down to 1.6 currentl y. Right now he is resting in bed, watching a movie on television without complaint. PAST MEDICAL HISTORY: 1. Hypertension. 2. Diabetes mellitus. 3. Hyperlipidemia. PAST SURGICAL HISTORY: None. CURRENT MEDICATIONS: At home: 1. Zocor 20 mg at bedtime. 2. Glucotrol 5 mg daily. 3. Metoprolol 100 mg b.i.d. 4. Norvasc 10 mg every day. 5. Aspirin 81 mg every day. ALLERGIES: None. SOCIAL HISTORY: He does not use tobacco. REVIEW OF SYSTEMS: Ten-point review of systems performed and is negative except as above. PHYSICAL EXAMINATION: GENERAL: Well-developed, well-nourished, thin gentleman without complaint. VITAL SIGNS: Height is 5 feet 7 inches, weight 150 pounds, BSA is 1.80. Temperature is 98.1, pulse is 80 and regular, blood pressure 173/75. NECK: Supple, without bruit. There is no adenopathy. CHEST: Clear bilaterally. HEART: Rhythm is regular. ABDOMEN: Soft and nontender. EXTREMITIES: No edema. His left foot is wrapped. VASCULAR: He has palpable femoral and popliteal pulses bilaterally. He has monophasic Doppler signa ls in both dorsalis pedis and posterior tibial on the left. ASSESSMENT AND PLAN: A 62-year-old gentleman with left toe gangrene for further vascular evaluation with the angiograms. I have discussed this with him and his sister. They are agreeable for us to pr oceed. Hopefully, we will be able to intervene and open to obtain straight line flow into his foot f or better healing.
--- NOTE | 2017-05-30 12:42 | PDOC.PN ---
- Subjective Encounter Start Date: 05/30/17 Encounter Start Time: 12:40 Subjective: no new complaints. care discussed in detail w pt & family -: he is agreeable for toe amputation as risks of conservative Rx high - Objective Resuscitation Status: Resuscitation Status FULL:Full Resuscitation MAR Reviewed: Yes Vital Signs & Weight: Vital Signs (12 hours) Temp Pulse Resp BP BP Pulse Ox 05/30/17 11:36 98.1 F 80 18 173/75 H 98 05/30/17 08:00 97.8 F 65 20 157/79 H 99 05/30/17 05:36 98.2 F 57 L 18 180/79 H 97 05/30/17 05:34 61 179/88 H Weight Admit Weight 150 lb 6.4 oz Weight 150 lb 6.4 oz I&O: 05/29/17 05/30/17 05/31/17 06:59 06:59 06:59 Intake Total 2535 2700 Output Total 900 1400 Balance 1635 1300 Result Diagrams: 05/30/17 03:52 05/30/17 03:52 Additional Labs: Accuchecks 05/30/17 05/30/17 05/29/17 07:49 04:48 19:54 POC Glucose 119 H 222 H 95 05/29/17 16:18 POC Glucose 103 Microbiology 05/26/17 18:45 Foot - Pending Bacterial Culture - Final Streptococcus Group G 05/26/17 19:19 Venous blood - Right Arm Blood Culture - Preliminary NO GROWTH AT 48 HOURS 05/26/17 18:45 Venous blood - Left Arm Blood Culture - Preliminary NO GROWTH AT 48 HOURS Phys Exam - Physical Examination Constitutional: NAD HEENT: PERRLA, moist MMs, sclera anicteric, oral pharynx no lesions Neck: no nodes, no JVD, supple, full ROM Respiratory: no wheezing, no rales, no rhonchi, clear to auscultation bilateral Cardiovascular: RRR, no significant murmur, no rub, gallop Gastrointestinal: soft, non-tender, no distention, positive bowel sounds Musculoskeletal: no edema, pulses present left 2nd toe dressed Neurological: non-focal, normal sensation, moves all 4 limbs Psychiatric: normal affect, A&O x 3 Skin: no rash Dx/Plan (1) Osteomyelitis of toe of left foot Code(s): M86.9 - OSTEOMYELITIS, UNSPECIFIED Status: Acute (2) MADELINE (acute kidney injury) Code(s): N17.9 - ACUTE KIDNEY FAILURE, UNSPECIFIED Status: Acute Comment: Karis CKD -3 (3) HTN (hypertension) Code(s): I10 - ESSENTIAL (PRIMARY) HYPERTENSION Status: Chronic (4) Diabetes mellitus Code(s): E11.9 - TYPE 2 DIABETES MELLITUS WITHOUT COMPLICATIONS Status: Chronic (5) Diabetic infection of left foot Code(s): E11.69 - TYPE 2 DIABETES MELLITUS WITH OTHER SPECIFIED COMPLICATION; L08.9 - LOCAL INFECTION OF THE SKIN AND SUBCUTANEOUS TISSUE, UNSP Status: Acute (6) PAD (peripheral artery disease) Code(s): I73.9 - PERIPHERAL VASCULAR DISEASE, UNSPECIFIED Status: Chronic - Plan plan discussed w/ family, continue antibiotics, PT/OT, out of bed/ambulate, DVT proph w/SCDs CTVS consulted for left arterial diease.angiogram & poosb angioplasty tomor -: cont IVF .renal Fx improving.karis CKD.Add WIL-I as BP also high -: cont IV ABx. PICC placed.rocephin and PO flagyl -: appreciate ID & GS input.bedisde I&D doen yesterday -: am labs.cont home meds as below * . Review of Systems - Review of Systems Constitutional: negative: fever, chills, sweats, weakness, malaise, other Eyes: negative: Pain, Vision Change, Conjunctivae Inflammation, Eyelid Inflammation, Redness, Other ENT: negative: Ear Pain, Ear Discharge, Nose Pain, Nose Discharge, Nose Congestion, Mouth Pain, Mouth Swelling, Throat Pain, Throat Swelling, Other Respiratory: negative: Cough, Dry, Shortness of Breath, Hemoptysis, SOB with Excertion, Pleuritic Pain, Sputum, Wheezing Cardiovascular: negative: chest pain, palpitations, orthopnea, paroxysmal nocturnal dyspnea, edema, light headedness, other Gastrointestinal: negative: Nausea, Vomiting, Abdominal Pain, Diarrhea, Constipation, Melena, Hematochezia, Other Genitourinary: negative: Dysuria, Frequency, Incontinence, Hematuria, Retention , Other Musculoskeletal: negative: Neck Pain, Shoulder Pain, Arm Pain, Back Pain, Hand Pain, Leg Pain, Foot Pain, Other Skin: negative: Rash, Lesions, Eliezer, Bruising, Other Neurological: negative: Weakness, Numbness, Incoordination, Change in Speech, Confusion, Seizures, Other - Medications/Allergies Allergies/Adverse Reactions: Allergies Allergy/AdvReac Type Severity Reaction Status Date / Time No Known Drug Allergies Allergy Verified 05/27/17 00:29 Medications: Current Medications Acetaminophen (Tylenol) 650 mg PO Q4H PRN PRN Reason: Headache/Fever or Pain Hydrocodone Bitart/Acetaminophen ([place] 5/325) 1 tab PO Q4H PRN PRN Reason: Moderate Pain (4-6) Al Hydroxide/Mg Hydroxide (Maalox) 30 ml PO Q6H PRN PRN Reason: Heartburn or Indigestion Amlodipine Besylate (Norvasc) 10 mg PO DAILY [facility] Last Admin: 05/30/17 08:38 Dose: 10 mg Aspirin (Ecotrin) 81 mg PO DAILY [facility] Last Admin: 05/30/17 08:38 Dose: 81 mg Atorvastatin Calcium (Lipitor) 10 mg PO HS [facility] Last Admin: 05/29/17 20:33 Dose: 10 mg Clonidine (Catapres) 0.1 mg PO Q4H PRN PRN Reason: SBP>160 Dextrose/Water (Dextrose 50%) 25 gm SLOW IVP PRN PRN PRN Reason: Hypoglycemia Famotidine (Pepcid) 20 mg PO DAILY [facility] Last Admin: 05/30/17 08:38 Dose: 20 mg Fentanyl (Sublimaze) 25 mcg SLOW IVP Q3H PRN PRN Reason: FOR SEVERE PAIN 7-10 Glipizide (Glucotrol) 5 mg PO DAILY-[facility] Last Admin: 05/30/17 08:38 Dose: 5 mg Glucagon (Glucagon) 1 mg IM PRN PRN PRN Reason: Hypoglycemia Heparin Sodium (Porcine) (Heparin) 5,000 units SC BID [facility] Last Admin: 05/30/17 08:38 Dose: 5,000 units Hydralazine HCl (Apresoline) 10 mg SLOW IVP Q4H PRN PRN Reason: SBP>170 Last Admin: 05/30/17 05:34 Dose: 10 mg Dextrose/Water (D5w) 1,000 mls @ 0 mls/hr IV .Q0M PRN; As Directed PRN Reason: Hypoglycemia Ceftriaxone Sodium 2 gm/ (Sodium Chloride) 100 mls @ 200 mls/hr IVPB Q24HR [facility] Last Admin: 05/29/17 16:19 Dose: 100 mls Sodium Chloride (Normal Saline 0.9%) 1,000 mls @ 100 mls/hr IV .Q10H [facility] Insulin Human Isoph/Insulin Regular (Humulin 70/30) 10 units SC AC [facility] Last Admin: 05/30/17 11:43 Dose: Not Given Insulin Human Lispro (Humalog) 0 units SC .MODERATE SLIDING SC PRN PRN Reason: Moderate Correctional Scale Last Admin: 05/30/17 05:31 Dose: 4 unit Insulin Human Lispro (Humalog) 0 units SC .BEDTIME SLIDING SC PRN PRN Reason: Bedtime Correctional Scale Lisinopril (Zestril) 5 mg PO BID [facility] Last Admin: 05/30/17 09:15 Dose: 5 mg Magnesium Hydroxide (Milk Of Magnesium) 30 ml PO DAILYPRN PRN PRN Reason: Constipation Metoprolol Tartrate (Lopressor) 100 mg PO BID [facility] Last Admin: 05/30/17 08:38 Dose: 100 mg Metronidazole (Flagyl) 250 mg PO TID [facility] Last Admin: 05/30/17 08:38 Dose: 250 mg Miscellaneous Medication (Pharmacy To Dose) 1 each IVPB ONE PRN PRN Reason: Pharmacy to dose Stop: 06/06/17 01:35 Ondansetron HCl (Zofran) 4 mg IVP Q6H PRN PRN Reason: Nausea/Vomiting Senna (Senokot) 2 tab PO HSPRN PRN PRN Reason: Constipation Zolpidem Tartrate (Ambien) 5 mg PO HSPRN PRN PRN Reason: Insomnia
[2017-05-30] MEDS ORDERED: Lidocaine 1% (PF) 30 ML VIAL ONE (14:29)
[2017-05-30] MEDS ORDERED: Fentanyl 250 MCG/5 ML VIAL ONE (14:34)
[2017-05-30] MEDS ORDERED: Midazolam HCl 2 mg/2 ml Vial ONE (14:35)
--- NOTE | 2017-05-30 14:39 | PRG ---
DATE OF SERVICE: 05/30/2017 Mr. Torres is feeling fine today. He denies any pain in his foot. His dressing has already been turk ged by the Wound Care Team. His foot is less swollen and there is no real erythema on the forefoot a ny longer. Vascular Surgery has come by to see him and are planning an angiogram. ASSESSMENT: Osteomyelitis of the left second toe. He has exposed bone in the wound base and I feel that conservative management is unlikely to be successful, but the patient would like to give it a tr y. I will be available if he decides to proceed with amputation. Vascular Surgery is planning an in tervention to try to improve the blood flow to his foot below the knee. I will be available as erin casas
[2017-05-30] MEDS ORDERED: hydrALAZINE 20 MG/ML VIAL ONE (14:55)
[2017-05-30] MEDS ORDERED: Heparin 10,000 UNITS/1 ML VIAL ONE (15:54)
[2017-05-30] MEDS ORDERED: Iopamidol 370 76% 50 ML VIAL FS ONE (16:21)
[2017-05-30] MEDS: cefTRIAXone\\ROCEPHIN 2 GM in Sodium Chloride 0.9% 100 ML IVPB SCH (17:54)
--- NOTE | 2017-05-30 18:02 | OP ---
DATE OF PROCEDURE: 05/30/2017 PREOPERATIVE DIAGNOSIS: Peripheral vascular disease with left foot gangrene. POSTOPERATIVE DIAGNOSIS: Peripheral vascular disease with left foot gangrene. PROCEDURES PERFORMED: 1. Ultrasound guided access of the right common femoral artery. 2. Abdominal aortogram with pelvic runoff. 3. Left common iliac artery angiogram. 4. Left external iliac artery angiogram. 5. Left common femoral artery angiogram. 6. Left popliteal artery angiogram. 7. Left peroneal artery angiogram. 8. Left peroneal artery [employer] with a 2 x 220 followed by 3 x 220 Preston balloon FLUORO TIME: 18.9 minutes. TOTAL CONTRAST: 39 mL. PROCEDURE IN DETAIL: After consent was obtained, the patient was brought to labeling specialist, placed in supi ne position on the labeling specialist table. Appropriate anesthetic monitor was placed. Using ultrasound guid ance, the right groin was anesthetized with 1% lidocaine. Using ultrasound guidance, percutaneous ac cess to the common femoral artery was obtained on the right, utilizing a micropuncture needle. Micro puncture wire and sheath were then placed. The sheath was exchanged over an 0.035 wire for a 5-Frenc h sheath. Contra catheter was passed into the abdominal aorta. Hand-injected aortogram was performe d. There was no aortic or iliac calcification or intraluminal encroachment by atherosclerotic diseas e. Contra catheter was guided over the abdominal aortic bifurcation into the common iliac artery. H and-injected arteriogram was performed. This was used to guide the Contra catheter into the external iliac artery. Using an angled Glidewire, an angled glide catheter was then placed in the external i liac artery and hand-injected arteriogram performed. External iliac, common femoral, profunda femori s arteries were widely patent. Catheter was guided into the common femoral artery. Digital angiogra phy was used to lis contrast from groin to foot. Superficial femoral, popliteal, and trifurcation was widely patent. The anterior tibial was occluded and atretic at the level of the ankle. Posterio r tibial artery was occluded and never showed back up the ankle. The peroneal artery was occluded, b ut there was a small calcified channel which passed down the calf to the foot. This was the artery t hat was patent via collaterals in the foot. The patient was given 5000 units of heparin. A BevyUpue guidewire was placed over the aortic bifurcation. A 5-Gambian sheath was removed and a 5-Gambian destination sheath placed. This was placed with its tip in the superficial femoral artery. The angl ed glide catheter was passed down into the popliteal artery. Hand-injected arteriogram was performed using digital angiography to illuminate the tibial arteries. A Victory 0.014 guidewire and Quick-Cr oss catheter were then used to traverse the occluded peroneal artery. Quick-Cross catheter was posit ioned with its tip at the ankle and the peroneal artery. Hand-injected arteriogram was performed oswaldo wing intraluminal location. The 0.014 Victory guidewire was replaced. A 2 x 220 followed by a 3 x 2 20 Preston balloon was placed and inflated to nominal pressure and held for 2 minutes. On removal of the Preston balloon, Hand-injected arteriogram with tip of the catheter in the popliteal artery showed an excellent result with good flow down into the foot. Patient then had the guidewires and balloons removed. The destination sheath was brought back over the aortic bifurcation over a Bentson guidewi re. The destination sheath was removed and a ProGlide placed for closure. ProGlide were deployed wi th good hemostasis. The patient tolerated the procedure well, and was transferred to the recovery ro in good condition.
[2017-05-30] MEDS: Atorvastatin Calcium 10 MG TAB PO SCH (21:16)
[2017-05-30] MEDS: Acetaminophen 325 MG TAB PO PRN (21:27)
[2017-05-31] MEDS: Acetaminophen 325 MG TAB PO PRN (05:19)
[2017-05-31] MEDS ORDERED: Acetaminophen/Codeine 30-300mg Tablet PO PRN ×2 (08:52)
[2017-05-31] MEDS: Clopidogrel Bisulfate 75 MG TAB PO SCH (09:14)
[2017-05-31] MEDS: Lisinopril 5 MG TAB PO SCH ×2 (09:14→21:11)
[2017-05-31] MEDS: Amlodipine 10 MG TAB PO SCH (09:14)
[2017-05-31] MEDS: Aspirin 81 mg Enteric Coated Tablet PO SCH (09:15)
[2017-05-31] MEDS: Famotidine 20 MG TAB PO SCH (09:15)
[2017-05-31] MEDS: Insulin NPH/Reg Insulin Hm 300 UNITS/3 ML VIAL SC SCH ×3 (09:15→17:55)
[2017-05-31] MEDS: glipiZIDE 5 MG TAB PO SCH (09:15)
[2017-05-31] MEDS: Metoprolol Tartrate 100 MG TAB PO SCH ×2 (09:16→21:12)
[2017-05-31] MEDS: Heparin 5,000 UNITS/ML VIAL SC SCH ×2 (09:16→21:12)
[2017-05-31] MEDS: metroNIDAZOLE 250 MG TAB PO SCH ×3 (09:16→21:18)
[2017-05-31] MEDS: Sodium Chloride 0.9% 1,000 ML IV SCH ×3 (09:17→21:10)
[2017-05-31] MEDS: cloNIDine 0.1 MG TAB PO PRN (13:00)
--- NOTE | 2017-05-31 15:16 | PDOC.PN ---
- Subjective Encounter Start Date: 05/31/17 Encounter Start Time: 08:20 Pt seen for followup re: toe osteomyelitis. Reports L foot pain. No fevers or chills. - Objective Resuscitation Status: Resuscitation Status FULL:Full Resuscitation MAR Reviewed: Yes Vital Signs & Weight: Vital Signs (12 hours) Temp Pulse Resp BP BP Pulse Ox 05/31/17 13:00 167/79 H 05/31/17 09:14 61 150/75 H 05/31/17 08:01 98.3 F 61 16 150/75 H 96 05/31/17 08:00 98.3 F 61 16 150/75 H 96 05/31/17 06:13 98.3 F 57 L 18 176/76 H 95 Weight Admit Weight 150 lb 6.4 oz Weight 150 lb 6.4 oz I&O: 05/30/17 05/31/17 06/01/17 06:59 06:59 06:59 Intake Total 2700 1380 Output Total 1400 950 Balance 1300 430 Result Diagrams: 05/30/17 03:52 05/30/17 03:52 Additional Labs: Accuchecks 05/31/17 05/31/17 05/30/17 12:08 04:56 21:14 POC Glucose 118 H 123 H 155 H 05/30/17 05/30/17 17:59 11:25 POC Glucose 87 95 Phys Exam - Physical Examination Constitutional: NAD HEENT: moist MMs Neck: supple Respiratory: clear to auscultation bilateral Cardiovascular: RRR Gastrointestinal: soft Musculoskeletal: pulses present Neurological: moves all 4 limbs Psychiatric: normal affect Deviation from normal: Wound L second toe Dx/Plan (1) Osteomyelitis of toe of left foot Code(s): M86.9 - OSTEOMYELITIS, UNSPECIFIED Status: Acute (2) HTN (hypertension) Code(s): I10 - ESSENTIAL (PRIMARY) HYPERTENSION Status: Chronic (3) PAD (peripheral artery disease) Code(s): I73.9 - PERIPHERAL VASCULAR DISEASE, UNSPECIFIED Status: Chronic (4) Diabetes mellitus Code(s): E11.9 - TYPE 2 DIABETES MELLITUS WITHOUT COMPLICATIONS Status: Chronic - Plan continue antibiotics, out of bed/ambulate * . Continue insulin sliding scale, accuchecks Plan for toe amputation noted. Monitor vital signs, titrate antihypertensives as needed. Review of Systems - Review of Systems Respiratory: negative: Cough, Dry, Shortness of Breath, Hemoptysis, SOB with Excertion, Pleuritic Pain, Sputum, Wheezing Cardiovascular: negative: chest pain, palpitations, orthopnea, paroxysmal nocturnal dyspnea, edema, light headedness - Medications/Allergies Allergies/Adverse Reactions: Allergies Allergy/AdvReac Type Severity Reaction Status Date / Time No Known Drug Allergies Allergy Verified 05/27/17 00:29 Medications: Current Medications Acetaminophen (Tylenol) 650 mg PO Q4H PRN PRN Reason: Headache/Fever or Pain Last Admin: 05/31/17 05:19 Dose: 650 mg Acetaminophen/Codeine Phosphate (Tylenol #3) 2 tab PO Q6H PRN PRN Reason: Severe Pain (7-10) Acetaminophen/Codeine Phosphate (Tylenol #3) 1 tab PO Q6H PRN PRN Reason: Moderate Pain (4-6) Hydrocodone Bitart/Acetaminophen ([place] 5/325) 1 tab PO Q4H PRN PRN Reason: Moderate Pain (4-6) Al Hydroxide/Mg Hydroxide (Maalox) 30 ml PO Q6H PRN PRN Reason: Heartburn or Indigestion Amlodipine Besylate (Norvasc) 10 mg PO DAILY [facility] Last Admin: 05/31/17 09:14 Dose: 10 mg Aspirin (Ecotrin) 81 mg PO DAILY [facility] Last Admin: 05/31/17 09:15 Dose: 81 mg Atorvastatin Calcium (Lipitor) 10 mg PO HS [facility] Last Admin: 05/30/17 21:16 Dose: 10 mg Clonidine (Catapres) 0.1 mg PO Q4H PRN PRN Reason: SBP>160 Last Admin: 05/31/17 13:00 Dose: 0.1 mg Clopidogrel Bisulfate (Plavix) 75 mg PO DAILY [facility] Last Admin: 05/31/17 09:14 Dose: 75 mg Dextrose/Water (Dextrose 50%) 25 gm SLOW IVP PRN PRN PRN Reason: Hypoglycemia Famotidine (Pepcid) 20 mg PO DAILY [facility] Last Admin: 05/31/17 09:15 Dose: 20 mg Fentanyl (Sublimaze) 25 mcg SLOW IVP Q3H PRN PRN Reason: FOR SEVERE PAIN 7-10 [facility] Last Admin: 05/31/17 09:15 Dose: 5 mg Glucagon (Glucagon) 1 mg IM PRN PRN PRN Reason: Hypoglycemia Heparin Sodium (Porcine) (Heparin) 5,000 units SC BID [facility] Last Admin: 05/31/17 09:16 Dose: 5,000 units Hydralazine HCl (Apresoline) 10 mg SLOW IVP Q4H PRN PRN Reason: SBP>170 Last Admin: 05/30/17 05:34 Dose: 10 mg Dextrose/Water (D5w) 1,000 mls @ 0 mls/hr IV .Q0M PRN; As Directed PRN Reason: Hypoglycemia Ceftriaxone Sodium 2 gm/ (Sodium Chloride) 100 mls @ 200 mls/hr IVPB Q24HR [facility] Last Admin: 05/30/17 17:54 Dose: 100 mls Sodium Chloride (Normal Saline 0.9%) 1,000 mls @ 100 mls/hr IV .Q10H [facility] Last Admin: 05/31/17 09:17 Dose: 1,000 mls Insulin Human Isoph/Insulin Regular (Humulin 70/30) 10 units SC AC [facility] Last Admin: 05/31/17 12:56 Dose: 10 units Insulin Human Lispro (Humalog) 0 units SC .MODERATE SLIDING SC PRN PRN Reason: Moderate Correctional Scale Last Admin: 05/30/17 05:31 Dose: 4 unit Insulin Human Lispro (Humalog) 0 units SC .BEDTIME SLIDING SC PRN PRN Reason: Bedtime Correctional Scale Lisinopril (Zestril) 5 mg PO BID [facility] Last Admin: 05/31/17 09:14 Dose: 5 mg Magnesium Hydroxide (Milk Of Magnesium) 30 ml PO DAILYPRN PRN PRN Reason: Constipation Metoprolol Tartrate (Lopressor) 100 mg PO BID [facility] Last Admin: 05/31/17 09:16 Dose: 100 mg Metronidazole (Flagyl) 250 mg PO TID [facility] Last Admin: 05/31/17 09:16 Dose: 250 mg Miscellaneous Medication (Pharmacy To Dose) 1 each IVPB ONE PRN PRN Reason: Pharmacy to dose Stop: 06/06/17 01:35 Ondansetron HCl (Zofran) 4 mg IVP Q6H PRN PRN Reason: Nausea/Vomiting Senna (Senokot) 2 tab PO HSPRN PRN PRN Reason: Constipation Zolpidem Tartrate (Ambien) 5 mg PO HSPRN PRN PRN Reason: Insomnia
--- NOTE | 2017-05-31 16:00 | PRG ---
DATE OF SERVICE: 05/31/2017 SUBJECTIVE: The patient had angiogram and angioplasty of peroneal artery. Otherwise, no headaches, visual symptoms, sore throat, odynophagia or dysphagia. No dyspnea, no change in visual symptoms, no diarrhea. OBJECTIVE: VITAL SIGNS: Normal except for elevation of systolic blood pressure. LUNGS: Clear. HEART: S1 and S2, regular rate. Foot with the second toe without much changes. Microbiology with g roup G Streptococcus. ASSESSMENT AND DISCUSSION: Type 2 diabetes, osteomyelitis, left second toe with bone exposure, perip heral vascular disease, status post angioplasty of peroneal artery. DISCUSSION: The patient now is ready for amputation of the second toe or at least the distal aspect of it. After that, continue antimicrobial therapy as arranged through the case management team.
[2017-05-31] MEDS: HYDROcodone/Acetaminophen 5/325 mg Tablet PO PRN (16:45)
[2017-05-31] MEDS: cefTRIAXone\\ROCEPHIN 2 GM in Sodium Chloride 0.9% 100 ML IVPB SCH (17:35)
[2017-05-31] MEDS: Atorvastatin Calcium 10 MG TAB PO SCH (21:11)
[2017-06-01] MEDS: hydrALAZINE 20 MG/ML VIAL SLOW IVP PRN ×2 (05:36→20:43)
[2017-06-01] MEDS: Sodium Chloride 0.9% 1,000 ML IV SCH ×2 (05:38→17:03)
[2017-06-01] MEDS: Insulin NPH/Reg Insulin Hm 300 UNITS/3 ML VIAL SC SCH ×3 (08:21→17:03)
[2017-06-01] MEDS: Heparin 5,000 UNITS/ML VIAL SC SCH ×2 (08:50→20:43)
[2017-06-01] MEDS: Metoprolol Tartrate 100 MG TAB PO SCH ×2 (08:50→20:43)
[2017-06-01] MEDS: Famotidine 20 MG TAB PO SCH (08:51)
[2017-06-01] MEDS: metroNIDAZOLE 250 MG TAB PO SCH ×2 (08:51→14:24)
[2017-06-01] MEDS: Clopidogrel Bisulfate 75 MG TAB PO SCH (08:52)
[2017-06-01] MEDS: Lisinopril 5 MG TAB PO SCH ×2 (08:52→20:42)
[2017-06-01] MEDS: Amlodipine 10 MG TAB PO SCH (08:52)
[2017-06-01] MEDS: glipiZIDE 5 MG TAB PO SCH (08:52)
[2017-06-01] MEDS: Aspirin 81 mg Enteric Coated Tablet PO SCH (08:53)
[2017-06-01 13:36] LABS: Anion Gap 9 mmol/L (10-20); BUN (Urea Nitrogen) 20 mg/dL (8.4-25.7); Calc. Creatinine Clearance 51 mL/min (70-130); Calcium 8.7 mg/dL (7.8-10.44); Carbon Dioxide 20 mmol/L (23-31); Chloride 114 mmol/L (98-107); Estimated GFR-MDRD 49; Glucose 62 mg/dL (80-115); Potassium 3.7 mmol/L (3.5-5.1); Sodium 139 mmol/L (136-145)
--- NOTE | 2017-06-01 14:02 | PDOC.PN ---
- Subjective Encounter Start Date: 06/01/17 Encounter Start Time: 09:20 Pt seen for followup re: toe osteomyelitis. Reports pain in left foot. No fevers or chills. Diarrhea since yesterday. - Objective Resuscitation Status: Resuscitation Status FULL:Full Resuscitation MAR Reviewed: Yes Vital Signs & Weight: Vital Signs (12 hours) Temp Pulse Resp BP BP BP Pulse Ox 06/01/17 11:23 98.2 F 55 L 16 136/70 98 06/01/17 08:52 61 06/01/17 08:00 98.2 F 61 18 135/80 99 06/01/17 06:10 60 155/88 H 06/01/17 05:36 60 194/87 H Weight Admit Weight 150 lb 6.4 oz Weight 150 lb 6.4 oz I&O: 05/31/17 06/01/17 06/02/17 06:59 06:59 06:59 Intake Total 1380 3860 Output Total 950 450 Balance 430 3410 Result Diagrams: 05/30/17 03:52 06/01/17 12:58 Additional Labs: Accuchecks 06/01/17 06/01/17 05/31/17 11:26 05:18 19:40 POC Glucose 119 H 123 H 210 H 05/31/17 05/31/17 17:40 16:23 POC Glucose 106 83 Phys Exam - Physical Examination Constitutional: NAD HEENT: moist MMs Neck: supple Respiratory: clear to auscultation bilateral Cardiovascular: RRR Gastrointestinal: soft Neurological: moves all 4 limbs Psychiatric: normal affect Deviation from normal: L 2nd toe wound Dx/Plan (1) Osteomyelitis of toe of left foot Code(s): M86.9 - OSTEOMYELITIS, UNSPECIFIED Status: Acute Comment: Continue antibiotics, amputation planned (2) Diarrhea Code(s): R19.7 - DIARRHEA, UNSPECIFIED Status: Acute Comment: Check stool studies to r/o infection (3) HTN (hypertension) Code(s): I10 - ESSENTIAL (PRIMARY) HYPERTENSION Status: Chronic Comment: Monitor vital signs, titrate antihypertensives as needed (4) PAD (peripheral artery disease) Code(s): I73.9 - PERIPHERAL VASCULAR DISEASE, UNSPECIFIED Status: Chronic Comment: Continue aspirin (5) Diabetes mellitus Code(s): E11.9 - TYPE 2 DIABETES MELLITUS WITHOUT COMPLICATIONS Status: Chronic Comment: Continue accuchecks, insulin sliding scale. - Plan * . Review of Systems - Review of Systems Constitutional: negative: fever, chills, sweats, weakness, malaise Cardiovascular: negative: chest pain, palpitations, orthopnea, paroxysmal nocturnal dyspnea, edema, light headedness Gastrointestinal: Diarrhea Musculoskeletal: Foot Pain - Medications/Allergies Allergies/Adverse Reactions: Allergies Allergy/AdvReac Type Severity Reaction Status Date / Time No Known Drug Allergies Allergy Verified 05/27/17 00:29 Medications: Current Medications Acetaminophen (Tylenol) 650 mg PO Q4H PRN PRN Reason: Headache/Fever or Pain Last Admin: 05/31/17 05:19 Dose: 650 mg Acetaminophen/Codeine Phosphate (Tylenol #3) 2 tab PO Q6H PRN PRN Reason: Severe Pain (7-10) Acetaminophen/Codeine Phosphate (Tylenol #3) 1 tab PO Q6H PRN PRN Reason: Moderate Pain (4-6) Hydrocodone Bitart/Acetaminophen ([place] 5/325) 1 tab PO Q4H PRN PRN Reason: Moderate Pain (4-6) Last Admin: 05/31/17 16:45 Dose: 1 tab Al Hydroxide/Mg Hydroxide (Maalox) 30 ml PO Q6H PRN PRN Reason: Heartburn or Indigestion Amlodipine Besylate (Norvasc) 10 mg PO DAILY [facility] Last Admin: 06/01/17 08:52 Dose: 10 mg Aspirin (Ecotrin) 81 mg PO DAILY [facility] Last Admin: 06/01/17 08:53 Dose: 81 mg Atorvastatin Calcium (Lipitor) 10 mg PO HS [facility] Last Admin: 05/31/17 21:11 Dose: 10 mg Clonidine (Catapres) 0.1 mg PO Q4H PRN PRN Reason: SBP>160 Last Admin: 05/31/17 13:00 Dose: 0.1 mg Clopidogrel Bisulfate (Plavix) 75 mg PO DAILY [facility] Last Admin: 06/01/17 08:52 Dose: 75 mg Dextrose/Water (Dextrose 50%) 25 gm SLOW IVP PRN PRN PRN Reason: Hypoglycemia Famotidine (Pepcid) 20 mg PO DAILY [facility] Last Admin: 06/01/17 08:51 Dose: 20 mg Fentanyl (Sublimaze) 25 mcg SLOW IVP Q3H PRN PRN Reason: FOR SEVERE PAIN 7-10 Glipizide (Glucotrol) 5 mg PO DAILY-[facility] Last Admin: 06/01/17 08:52 Dose: 5 mg Glucagon (Glucagon) 1 mg IM PRN PRN PRN Reason: Hypoglycemia Heparin Sodium (Porcine) (Heparin) 5,000 units SC BID [facility] Last Admin: 06/01/17 08:50 Dose: Not Given Hydralazine HCl (Apresoline) 10 mg SLOW IVP Q4H PRN PRN Reason: SBP>170 Last Admin: 06/01/17 05:36 Dose: 10 mg Dextrose/Water (D5w) 1,000 mls @ 0 mls/hr IV .Q0M PRN; As Directed PRN Reason: Hypoglycemia Ceftriaxone Sodium 2 gm/ (Sodium Chloride) 100 mls @ 200 mls/hr IVPB Q24HR [facility] Last Admin: 05/31/17 17:35 Dose: 100 mls Sodium Chloride (Normal Saline 0.9%) 1,000 mls @ 100 mls/hr IV .Q10H [facility] Last Admin: 06/01/17 05:38 Dose: 1,000 mls Insulin Human Isoph/Insulin Regular (Humulin 70/30) [address] [facility] Last Admin: 06/01/17 11:23 Dose: Not Given Insulin Human Lispro (Humalog) 0 units SC .MODERATE SLIDING SC PRN PRN Reason: Moderate Correctional Scale Last Admin: 05/30/17 05:31 Dose: 4 unit Insulin Human Lispro (Humalog) 0 units SC .BEDTIME SLIDING SC PRN PRN Reason: Bedtime Correctional Scale Last Admin: 05/31/17 21:17 Dose: 2 unit Lisinopril (Zestril) 5 mg PO BID [facility] Last Admin: 06/01/17 08:52 Dose: 5 mg Magnesium Hydroxide (Milk Of Magnesium) 30 ml PO DAILYPRN PRN PRN Reason: Constipation Metoprolol Tartrate (Lopressor) 100 mg PO BID [facility] Last Admin: 06/01/17 08:50 Dose: 100 mg Metronidazole (Flagyl) 250 mg PO TID [facility] Last Admin: 06/01/17 08:51 Dose: 250 mg Miscellaneous Medication (Pharmacy To Dose) 1 each IVPB ONE PRN PRN Reason: Pharmacy to dose Stop: 06/06/17 01:35 Ondansetron HCl (Zofran) 4 mg IVP Q6H PRN PRN Reason: Nausea/Vomiting Senna (Senokot) 2 tab PO HSPRN PRN PRN Reason: Constipation Zolpidem Tartrate (Ambien) 5 mg PO HSPRN PRN PRN Reason: Insomnia
[2017-06-01] MEDS ORDERED: Bacitracin Zinc Ointment 30 gm TUBE ONE ×2 (14:32→16:04)
[2017-06-01] MEDS ORDERED: Bupivacaine/Epinephrine 0.25% 30 ML VIAL ONE ×2 (14:32→16:04)
[2017-06-01] MEDS: cefTRIAXone\\ROCEPHIN 2 GM in Sodium Chloride 0.9% 100 ML IVPB SCH (15:08)
[2017-06-01] MEDS: cloNIDine 0.1 MG TAB PO PRN (15:22)
[2017-06-01] MEDS ORDERED: Dexamethasone 20 MG/5 ML VIAL ONE (15:44)
[2017-06-01] MEDS ORDERED: Propofol 200 MG/20 ML VIAL ONE (15:44)
[2017-06-01] MEDS ORDERED: Lidocaine 1% PF 5 ML VIAL ONE (15:44)
[2017-06-01] MEDS ORDERED: Morphine 10 MG/ML VIAL ONE (16:11)
[2017-06-01] MEDS ORDERED: HYDROmorphone 0.5 MG/0.5 ML SYRINGE ONE (16:29)
[2017-06-01] MEDS ORDERED: Promethazine HCl 25 MG/ML VIAL IM PRN (18:02)
[2017-06-01] MEDS ORDERED: Promethazine HCl 25 MG/ML VIAL SLOW IVP PRN (18:02)
[2017-06-01] MEDS ORDERED: Ondansetron HCl/PF 4 MG/2 ML Vial IVP PRN (18:02)
[2017-06-01] MEDS ORDERED: HYDROmorphone 2 MG/ML VIAL SLOW IVP PRN (18:02)
--- NOTE | 2017-06-01 18:03 | PDOC.OP ---
Operative Note - Operative Note Operative Note: PROCEDURE: Left second toe amputation DATE OF PROCEDURE: 06/01/2017 SURGEON: Izabela Celeste M.D. PREOPERATIVE DIAGNOSES: Osteomyelitis of the mid and distal phalanges of the left second toe POSTOPERATIVE DIAGNOSIS: Osteomyelitis of the mid and distal phalanges of the left second toe HISTORY: Patient is a 62-year-old man who tore his toenail while bathing. He is legally blind and has dense neuropathy and did not experience any pain. His sister noticed that his toe was swollen and took him to the doctor who admitted him for IV antibiotics. Osteomyelitis was found on MRI. The patient has undergone angiography and revascularization of the peroneal artery and has decided to proceed with toe amputation. PROCEDURE IN DETAIL: After informed consent was obtained and appropriate preoperative antibiotics continued patient was taken to the operating room where general anesthesia by laryngeal mask airway was administered. He was prepped and draped in the standard sterile fashion and a digital block performed. A paddle-shaped incision was made around the base of the toe and dissection carried down to the proximal phalanx which was divided with bone gary. The tissues at this level were healthy in appearance and the bone had a normal texture. There was no purulence or edema. A few small bleeding points were controlled with electrocautery. The bone was rongeured back and the bone chips sent for bone culture. The soft tissues were copiously irrigated and then loosely reapproximated with interrupted Vicryl sutures. The skin was reapproximated with interrupted vertical mattress nylon sutures leaving the proximal incision open. The wound was packed through the proximal incision and sterile dressings were placed. The patient was extubated and taken to recovery in stable condition. Estimated blood loss was minimal. There were no complications. Specimens are left second toe, and bone chips for Gram stain and culture
[2017-06-01] MEDS: Atorvastatin Calcium 10 MG TAB PO SCH (20:43)
[2017-06-02] MEDS: Sodium Chloride 0.9% 1,000 ML IV SCH ×3 (02:46→21:06)
[2017-06-02 05:40] LABS: ALT (SGPT) 58 U/L (8-55); AST (SGOT) 57 U/L (5-34); Albumin 3.1 g/dL (3.4-4.8); Alkaline Phosphatase 74 U/L (40-150); Anion Gap 11 mmol/L (10-20); BUN (Urea Nitrogen) 25 mg/dL (8.4-25.7); Bilirubin, Total 0.2 mg/dL (0.2-1.2); Calc. Creatinine Clearance 45 mL/min (70-130); Calcium 8.4 mg/dL (7.8-10.44); Carbon Dioxide 17 mmol/L (23-31); Chloride 114 mmol/L (98-107); Estimated GFR-MDRD 42; Globulin 2.9 g/dL (2.4-3.5); Glucose 206 mg/dL (80-115); Potassium 4.2 mmol/L (3.5-5.1); Sodium 138 mmol/L (136-145)
[2017-06-02] MEDS: Amlodipine 10 MG TAB PO SCH (08:28)
[2017-06-02] MEDS: Lisinopril 5 MG TAB PO SCH ×2 (08:28→21:04)
[2017-06-02] MEDS: Metoprolol Tartrate 100 MG TAB PO SCH ×2 (08:28→21:06)
[2017-06-02] MEDS: glipiZIDE 5 MG TAB PO SCH (08:29)
[2017-06-02] MEDS: Famotidine 20 MG TAB PO SCH (08:29)
[2017-06-02] MEDS: metroNIDAZOLE 250 MG TAB PO SCH ×3 (08:29→21:06)
[2017-06-02] MEDS: Aspirin 81 mg Enteric Coated Tablet PO SCH (08:29)
[2017-06-02] MEDS: Clopidogrel Bisulfate 75 MG TAB PO SCH (08:29)
[2017-06-02] MEDS: Heparin 5,000 UNITS/ML VIAL SC SCH ×2 (08:29→21:06)
[2017-06-02] MEDS: Insulin NPH/Reg Insulin Hm 300 UNITS/3 ML VIAL SC SCH ×3 (08:30→18:38)
[2017-06-02] MEDS: HYDROcodone/Acetaminophen 5/325 mg Tablet PO PRN (09:11)
[2017-06-02] MEDS: HumaLOG 300 UNITS/3 ML VIAL SC PRN (12:08)
[2017-06-02] MEDS: cefTRIAXone\\ROCEPHIN 2 GM in Sodium Chloride 0.9% 100 ML IVPB SCH (14:43)
--- NOTE | 2017-06-02 14:49 | PDOC.PN ---
- Subjective Encounter Start Date: 06/02/17 Encounter Start Time: 08:20 Pt seen for followup re: toe infection. Reports foot pain is better. - Objective Resuscitation Status: Resuscitation Status FULL:Full Resuscitation Vital Signs & Weight: Vital Signs (12 hours) Temp Pulse Resp BP BP Pulse Ox 06/02/17 09:13 98.0 F 85 18 151/80 H 97 06/02/17 08:28 70 151/80 H 06/02/17 08:00 98.0 F 85 18 151/80 H 97 Weight Admit Weight 150 lb 6.4 oz Weight 150 lb 6.4 oz I&O: 06/01/17 06/02/17 06/03/17 06:59 06:59 06:59 Intake Total 3860 2800 Output Total 450 Balance 3410 2800 Result Diagrams: 05/30/17 03:52 06/02/17 05:09 Additional Labs: Accuchecks 06/02/17 06/02/17 06/01/17 11:28 05:26 19:49 POC Glucose 268 H 210 H 139 H 06/01/17 16:56 POC Glucose 79 Phys Exam - Physical Examination Constitutional: NAD HEENT: moist MMs Neck: supple Respiratory: clear to auscultation bilateral Cardiovascular: RRR Gastrointestinal: soft s/p L second toe amputation Neurological: moves all 4 limbs Psychiatric: normal affect Dx/Plan (1) Osteomyelitis of toe of left foot Code(s): M86.9 - OSTEOMYELITIS, UNSPECIFIED Status: Acute Comment: s/p L 2nd toe amputation yesterday. Continue antibiotics (2) Diarrhea Code(s): R19.7 - DIARRHEA, UNSPECIFIED Status: Acute Comment: Improving, samples not sent for stool studies (3) HTN (hypertension) Code(s): I10 - ESSENTIAL (PRIMARY) HYPERTENSION Status: Chronic Comment: titrate antihypertensives as needed (4) PAD (peripheral artery disease) Code(s): I73.9 - PERIPHERAL VASCULAR DISEASE, UNSPECIFIED Status: Chronic Comment: On aspirin (5) Diabetes mellitus Code(s): E11.9 - TYPE 2 DIABETES MELLITUS WITHOUT COMPLICATIONS Status: Chronic Comment: On accuchecks, insulin sliding scale. - Plan plan discussed w/ family, continue antibiotics, PT/OT, out of bed/ambulate * . Review of Systems - Review of Systems Respiratory: negative: Cough, Dry, Shortness of Breath, Hemoptysis, SOB with Excertion, Pleuritic Pain, Sputum, Wheezing Cardiovascular: negative: chest pain, palpitations, orthopnea, paroxysmal nocturnal dyspnea, edema, light headedness - Medications/Allergies Allergies/Adverse Reactions: Allergies Allergy/AdvReac Type Severity Reaction Status Date / Time No Known Drug Allergies Allergy Verified 05/27/17 00:29 Medications: Current Medications Acetaminophen (Tylenol) 650 mg PO Q4H PRN PRN Reason: Headache/Fever or Pain Last Admin: 05/31/17 05:19 Dose: 650 mg Acetaminophen/Codeine Phosphate (Tylenol #3) 2 tab PO Q6H PRN PRN Reason: Severe Pain (7-10) Acetaminophen/Codeine Phosphate (Tylenol #3) 1 tab PO Q6H PRN PRN Reason: Moderate Pain (4-6) Hydrocodone Bitart/Acetaminophen ([place] 5/325) 1 tab PO Q4H PRN PRN Reason: Moderate Pain (4-6) Last Admin: 06/02/17 09:11 Dose: 1 tab Al Hydroxide/Mg Hydroxide (Maalox) 30 ml PO Q6H PRN PRN Reason: Heartburn or Indigestion Amlodipine Besylate (Norvasc) 10 mg PO DAILY [facility] Last Admin: 06/02/17 08:28 Dose: 10 mg Aspirin (Ecotrin) 81 mg PO DAILY [facility] Last Admin: 06/02/17 08:29 Dose: 81 mg Atorvastatin Calcium (Lipitor) 10 mg PO HS [facility] Last Admin: 06/01/17 20:43 Dose: 10 mg Clonidine (Catapres) 0.1 mg PO Q4H PRN PRN Reason: SBP>160 Last Admin: 06/01/17 15:22 Dose: 0.1 mg Clopidogrel Bisulfate (Plavix) 75 mg PO DAILY [facility] Last Admin: 06/02/17 08:29 Dose: 75 mg Dextrose/Water (Dextrose 50%) 25 gm SLOW IVP PRN PRN PRN Reason: Hypoglycemia Famotidine (Pepcid) 20 mg PO DAILY [facility] Last Admin: 06/02/17 08:29 Dose: 20 mg Fentanyl (Sublimaze) 25 mcg SLOW IVP Q3H PRN PRN Reason: FOR SEVERE PAIN 7-10 Glipizide (Glucotrol) 5 mg PO DAILY[facility] Last Admin: 06/02/17 08:29 Dose: 5 mg Glucagon (Glucagon) 1 mg IM PRN PRN PRN Reason: Hypoglycemia Heparin Sodium (Porcine) (Heparin) 5,000 units SC BID [facility] Last Admin: 06/02/17 08:29 Dose: 5,000 units Hydralazine HCl (Apresoline) 10 mg SLOW IVP Q4H PRN PRN Reason: SBP>170 Last Admin: 06/01/17 20:43 Dose: 10 mg Dextrose/Water (D5w) 1,000 mls @ 0 mls/hr IV .Q0M PRN; As Directed PRN Reason: Hypoglycemia Ceftriaxone Sodium 2 gm/ (Sodium Chloride) 100 mls @ 200 mls/hr IVPB Q24HR [facility] Last Admin: 06/02/17 14:43 Dose: 100 mls Sodium Chloride (Normal Saline 0.9%) 1,000 mls @ 100 mls/hr IV .Q10H [facility] Last Admin: 06/02/17 10:01 Dose: 1,000 mls Insulin Human Isoph/Insulin Regular (Humulin 70/30) 10 units SC AC [facility] Last Admin: 06/02/17 13:24 Dose: Not Given Insulin Human Lispro (Humalog) 0 units SC .MODERATE SLIDING SC PRN PRN Reason: Moderate Correctional Scale Last Admin: 06/02/17 12:08 Dose: 6 unit Insulin Human Lispro (Humalog) 0 units SC .BEDTIME SLIDING SC PRN PRN Reason: Bedtime Correctional Scale Last Admin: 05/31/17 21:17 Dose: 2 unit Lisinopril (Zestril) 5 mg PO BID [facility] Last Admin: 06/02/17 08:28 Dose: 5 mg Magnesium Hydroxide (Milk Of Magnesium) 30 ml PO DAILYPRN PRN PRN Reason: Constipation Metoprolol Tartrate (Lopressor) 100 mg PO BID [facility] Last Admin: 06/02/17 08:28 Dose: 100 mg Metronidazole (Flagyl) 250 mg PO TID [facility] Last Admin: 06/02/17 14:44 Dose: 250 mg Miscellaneous Medication (Pharmacy To Dose) 1 each IVPB ONE PRN PRN Reason: Pharmacy to dose Stop: 06/06/17 01:35 Ondansetron HCl (Zofran) 4 mg IVP Q6H PRN PRN Reason: Nausea/Vomiting Last Admin: 06/01/17 20:42 Dose: 4 mg Senna (Senokot) 2 tab PO HSPRN PRN PRN Reason: Constipation Zolpidem Tartrate (Ambien) 5 mg PO HSPRN PRN PRN Reason: Insomnia
[2017-06-02] MEDS: cloNIDine 0.1 MG TAB PO PRN (15:03)
[2017-06-02] MEDS: hydrALAZINE 20 MG/ML VIAL SLOW IVP PRN (17:19)
[2017-06-02] MEDS: Atorvastatin Calcium 10 MG TAB PO SCH (21:06)
--- NOTE | 2017-06-03 00:51 | DIS ---
PRIMARY CARE PHYSICIAN: Dr. Aries Ayon. DATE OF ADMISSION: 05/26/2017 DATE OF DISCHARGE: 06/02/2017 DISCHARGE DIAGNOSES: 1. Left second toe osteomyelitis. 2. Peripheral vascular disease with left foot gangrene. CONSULTATIONS DURING THIS HOSPITALIZATION: General Surgery, Dr. Celeste; Infectious Diseases, Dr. Chacon; and Vascular Surgery, Dr. Brandon Hunter. PROCEDURES DURING THIS HOSPITALIZATION: 1. PICC line placement on 05/29/2017 by Interventional Radiology. 2. On 05/30/2017, the patient underwent abdominal aortogram with pelvic runoff. He underwent left p eroneal artery [employer] with a 2 x 220 followed by 3 x 220 [place] balloon. 3. On 06/01/2017, the patient underwent left second toe amputation. DISCHARGE MEDICATIONS: Amlodipine 10 mg daily, aspirin 81 mg daily, ceftriaxone 2 grams intravenousl y daily until 07/10/2017, Plavix 75 mg daily, glipizide 5 mg daily, lisinopril 5 mg 2 times a day, Lo pressor 100 mg 2 times a day, Flagyl 250 mg 3 times a day until 06/26/2017, and simvastatin 20 mg at bedtime. HOSPITAL COURSE: Mr. Torres is a pleasant 62-year-old gentleman who was admitted to [facility] on 05/26/2017 for left second toe osteomyelitis. MRI of the left foot showed osteom yelitis of the middle and distal phalanges of the second toe. He was seen by General Surgery, Infect ious Diseases, and Cardiovascular Surgery Services. Foot cultures grew Streptococcus group G. He wa s treated with intravenous antibiotics. He received PICC line placement. He also received intervent ional procedure on the left peroneal artery as described above. On 06/01/2017, he underwent amputati on of the left second toe. He improved clinically. He is being discharged home with arrangements ma evan for outpatient intravenous antibiotics in the form of ceftriaxone as well as oral metronidazole. On the day of discharge, he has normal sodium, normal potassium, normal blood urea nitrogen, elevated creatinine of 1.66, elevated AST of 57, elevated ALT of 58 (isolated transaminitis likely secondary to muscle damage during surgery), and decreased albumin of 3.1. Many thanks for allowing me to participate in your patient's care. Please feel free to contact me wi th any questions or concerns. DISCHARGE DESTINATION: Home. TOTAL AMOUNT OF TIME SPENT COORDINATING THIS DISCHARGE: 38 minutes.
--- NOTE | 2017-06-03 06:59 | ADD-DIS ---
ADDENDUM I assessed Mr. Torres on the day of discharge. Please refer to my daily progress note for further det ails regarding this [id number] encounter.
[2017-06-03] MEDS: Lisinopril 5 MG TAB PO SCH ×2 (08:46→21:57)
[2017-06-03] MEDS: Famotidine 20 MG TAB PO SCH (08:46)
[2017-06-03] MEDS: metroNIDAZOLE 250 MG TAB PO SCH ×3 (08:46→21:56)
[2017-06-03] MEDS: Aspirin 81 mg Enteric Coated Tablet PO SCH (08:48)
[2017-06-03] MEDS: Metoprolol Tartrate 100 MG TAB PO SCH ×2 (08:48→22:08)
[2017-06-03] MEDS: Clopidogrel Bisulfate 75 MG TAB PO SCH (08:48)
[2017-06-03] MEDS: Amlodipine 10 MG TAB PO SCH (08:48)
[2017-06-03] MEDS: glipiZIDE 5 MG TAB PO SCH (08:48)
[2017-06-03] MEDS: Insulin NPH/Reg Insulin Hm 300 UNITS/3 ML VIAL SC SCH ×3 (08:49→18:04)
[2017-06-03] MEDS: Sodium Chloride 0.9% 1,000 ML IV SCH (08:49)
[2017-06-03] MEDS: Heparin 5,000 UNITS/ML VIAL SC SCH ×2 (08:55→22:00)
[2017-06-03] MEDS: Bacitracin Zinc 1 Packet TOP SCH (09:22)
--- NOTE | 2017-06-03 14:07 | PDOC.PN ---
- Subjective Encounter Start Date: 06/03/17 Encounter Start Time: 09:00 Pt seen for followup re: toe osteomyelitis. No complaints today. - Objective Resuscitation Status: Resuscitation Status FULL:Full Resuscitation MAR Reviewed: Yes Vital Signs & Weight: Vital Signs (12 hours) Temp Pulse Resp BP Pulse Ox 06/03/17 08:48 62 06/03/17 08:00 98.3 F 62 18 06/03/17 07:54 98.3 F 54 L 16 155/70 H 96 Weight Admit Weight 150 lb 6.4 oz Weight 150 lb 6.4 oz I&O: 06/02/17 06/03/17 06/04/17 06:59 06:59 07:59 Intake Total 2800 2560 Output Total 625 Balance 2800 1935 Result Diagrams: 05/30/17 03:52 06/02/17 05:09 Additional Labs: Accuchecks 06/03/17 06/03/17 06/02/17 11:53 05:00 20:37 POC Glucose 135 H 102 246 H 06/02/17 06/02/17 16:53 14:43 POC Glucose 177 H 186 H Phys Exam - Physical Examination Constitutional: NAD HEENT: moist MMs Neck: supple Respiratory: clear to auscultation bilateral Cardiovascular: RRR Gastrointestinal: soft Neurological: moves all 4 limbs Psychiatric: normal affect Dx/Plan (1) Osteomyelitis of toe of left foot Code(s): M86.9 - OSTEOMYELITIS, UNSPECIFIED Status: Acute Comment: s/p L 2nd toe amputation yesterday. Continue antibiotics (2) HTN (hypertension) Code(s): I10 - ESSENTIAL (PRIMARY) HYPERTENSION Status: Chronic Comment: Pt' s blood pressures still high, add scheduled hydralazine (3) PAD (peripheral artery disease) Code(s): I73.9 - PERIPHERAL VASCULAR DISEASE, UNSPECIFIED Status: Chronic Comment: On aspirin (4) Diabetes mellitus Code(s): E11.9 - TYPE 2 DIABETES MELLITUS WITHOUT COMPLICATIONS Status: Chronic Comment: Continue accuchecks, insulin sliding scale. (5) Diarrhea Code(s): R19.7 - DIARRHEA, UNSPECIFIED Status: Resolved - Plan plan discussed w/ family, continue antibiotics, out of bed/ambulate * . Pt's discharge was held yesterday due to elevated blood pressure and family concerned re; wound care over the weekend. Likely home on Monday. Review of Systems - Review of Systems Respiratory: negative: Cough, Dry, Shortness of Breath, Hemoptysis, SOB with Excertion, Pleuritic Pain, Sputum, Wheezing Cardiovascular: negative: chest pain, palpitations, orthopnea, paroxysmal nocturnal dyspnea, edema, light headedness - Medications/Allergies Allergies/Adverse Reactions: Allergies Allergy/AdvReac Type Severity Reaction Status Date / Time No Known Drug Allergies Allergy Verified 05/27/17 00:29 Medications: Current Medications Acetaminophen (Tylenol) 650 mg PO Q4H PRN PRN Reason: Headache/Fever or Pain Last Admin: 05/31/17 05:19 Dose: 650 mg Acetaminophen/Codeine Phosphate (Tylenol #3) 2 tab PO Q6H PRN PRN Reason: Severe Pain (7-10) Acetaminophen/Codeine Phosphate (Tylenol #3) 1 tab PO Q6H PRN PRN Reason: Moderate Pain (4-6) Hydrocodone Bitart/Acetaminophen ([place] 5/325) 1 tab PO Q4H PRN PRN Reason: Moderate Pain (4-6) Last Admin: 06/02/17 09:11 Dose: 1 tab Al Hydroxide/Mg Hydroxide (Maalox) 30 ml PO Q6H PRN PRN Reason: Heartburn or Indigestion Amlodipine Besylate (Norvasc) 10 mg PO DAILY [facility] Last Admin: 06/03/17 08:48 Dose: 10 mg Aspirin (Ecotrin) 81 mg PO DAILY [facility] Last Admin: 06/03/17 08:48 Dose: 81 mg Atorvastatin Calcium (Lipitor) 10 mg PO HS [facility] Last Admin: 06/02/17 21:06 Dose: 10 mg Bacitracin Zinc (Bacitracin) 1 pk TOP DAILY [facility] Last Admin: 06/03/17 09:22 Dose: Not Given Clonidine (Catapres) 0.1 mg PO Q4H PRN PRN Reason: SBP>160 Last Admin: 06/02/17 15:03 Dose: 0.1 mg Clopidogrel Bisulfate (Plavix) 75 mg PO DAILY [facility] Last Admin: 06/03/17 08:48 Dose: 75 mg Dextrose/Water (Dextrose 50%) 25 gm SLOW IVP PRN PRN PRN Reason: Hypoglycemia Famotidine (Pepcid) 20 mg PO DAILY [facility] Last Admin: 03/10/18 08:46 Dose: 20 mg Glipizide (Glucotrol) 5 mg PO DAILY[facility] Last Admin: 06/03/17 08:48 Dose: 5 mg Glucagon (Glucagon) 1 mg IM PRN PRN PRN Reason: Hypoglycemia Heparin Sodium (Porcine) (Heparin) 5,000 units SC BID [facility] Last Admin: 06/03/17 08:55 Dose: 5,000 units Hydralazine HCl (Apresoline) 10 mg SLOW IVP Q4H PRN PRN Reason: SBP>170 Last Admin: 06/02/17 17:19 Dose: 10 mg Hydralazine HCl (Apresoline) 25 mg PO TID [facility] Dextrose/Water (D5w) 1,000 mls @ 0 mls/hr IV .Q0M PRN; As Directed PRN Reason: Hypoglycemia Ceftriaxone Sodium 2 gm/ (Sodium Chloride) 100 mls @ 200 mls/hr IVPB Q24HR [facility] Last Admin: 06/02/17 14:43 Dose: 100 mls Sodium Chloride (Normal Saline 0.9%) 1,000 mls @ 100 mls/hr IV .Q10H [facility] Last Admin: 06/03/17 08:49 Dose: Not Given Insulin Human Isoph/Insulin Regular (Humulin 70/30) 10 units SC [facility] Last Admin: 06/03/17 12:23 Dose: Not Given Insulin Human Lispro (Humalog) 0 units SC .MODERATE SLIDING SC PRN PRN Reason: Moderate Correctional Scale Last Admin: 06/02/17 12:08 Dose: 6 unit Insulin Human Lispro (Humalog) 0 units SC .BEDTIME SLIDING SC PRN PRN Reason: Bedtime Correctional Scale Last Admin: 05/31/17 21:17 Dose: 2 unit Lisinopril (Zestril) 5 mg PO BID [facility] Last Admin: 06/03/17 08:46 Dose: 5 mg Magnesium Hydroxide (Milk Of Magnesium) 30 ml PO DAILYPRN PRN PRN Reason: Constipation Metoprolol Tartrate (Lopressor) 100 mg PO BID [facility] Last Admin: 06/03/17 08:48 Dose: 100 mg Metronidazole (Flagyl) 250 mg PO TID [facility] Last Admin: 06/03/17 08:46 Dose: 250 mg Miscellaneous Medication (Pharmacy To Dose) 1 each IVPB ONE PRN PRN Reason: Pharmacy to dose Stop: 06/06/17 01:35 Ondansetron HCl (Zofran) 4 mg IVP Q6H PRN PRN Reason: Nausea/Vomiting Last Admin: 06/01/17 20:42 Dose: 4 mg Senna (Senokot) 2 tab PO HSPRN PRN PRN Reason: Constipation Sodium Chloride (Flush - Normal Saline) 10 ml IVF Q12HR [facility] Last Admin: 06/03/17 09:22 Dose: 10 ml Sodium Chloride (Flush - Normal Saline) 10 ml IVF PRN PRN PRN Reason: Saline Flush Zolpidem Tartrate (Ambien) 5 mg PO HSPRN PRN PRN Reason: Insomnia
[2017-06-03] MEDS: hydrALAZINE 25 MG TAB PO SCH ×2 (15:11→21:57)
[2017-06-03] MEDS: cefTRIAXone\\ROCEPHIN 2 GM in Sodium Chloride 0.9% 100 ML IVPB SCH (15:12)
[2017-06-03] MEDS: Atorvastatin Calcium 10 MG TAB PO SCH (21:57)
[2017-06-04] MEDS: metroNIDAZOLE 250 MG TAB PO SCH ×3 (08:12→20:39)
[2017-06-04] MEDS: Metoprolol Tartrate 100 MG TAB PO SCH ×2 (08:13→20:39)
[2017-06-04] MEDS: Aspirin 81 mg Enteric Coated Tablet PO SCH (08:14)
[2017-06-04] MEDS: hydrALAZINE 25 MG TAB PO SCH ×3 (08:15→20:39)
[2017-06-04] MEDS: Clopidogrel Bisulfate 75 MG TAB PO SCH (08:15)
[2017-06-04] MEDS: Amlodipine 10 MG TAB PO SCH (08:16)
[2017-06-04] MEDS: Lisinopril 5 MG TAB PO SCH ×2 (08:17→20:39)
[2017-06-04] MEDS: glipiZIDE 5 MG TAB PO SCH (08:17)
[2017-06-04] MEDS: Insulin NPH/Reg Insulin Hm 300 UNITS/3 ML VIAL SC SCH ×3 (08:19→18:06)
[2017-06-04] MEDS: Bacitracin Zinc 1 Packet TOP SCH (08:25)
[2017-06-04] MEDS: Heparin 5,000 UNITS/ML VIAL SC SCH ×2 (08:28→20:40)
[2017-06-04] MEDS: Famotidine 20 MG TAB PO SCH (08:28)
[2017-06-04] MEDS ORDERED: Diphenoxylate HCl/Atropine Tablet PO PRN (12:27)
[2017-06-04] MEDS: cefTRIAXone\\ROCEPHIN 2 GM in Sodium Chloride 0.9% 100 ML IVPB SCH (14:57)
--- NOTE | 2017-06-04 17:28 | PDOC.PN ---
- Subjective Encounter Start Date: 06/04/17 Encounter Start Time: 11:00 Subjective: NO NEW COMPLAINTS - Objective Resuscitation Status: Resuscitation Status FULL:Full Resuscitation MAR Reviewed: Yes Vital Signs & Weight: Vital Signs (12 hours) Temp Pulse Resp BP BP BP Pulse Ox 06/04/17 16:43 157/71 H 06/04/17 14:49 53 L 166/75 H 06/04/17 11:46 172/62 H 06/04/17 08:16 60 06/04/17 08:15 60 173/80 H 06/04/17 07:40 98.4 F 55 L 18 173/80 H 94 L 06/04/17 07:14 98.6 F 78 16 Weight Admit Weight 150 lb 6.4 oz Weight 150 lb 6.4 oz I&O: 06/03/17 06/04/17 06/05/17 05:59 06:59 06:59 Intake Total 1600 Output Total Balance 1600 Result Diagrams: 05/30/17 03:52 06/02/17 05:09 Additional Labs: Accuchecks 06/04/17 06/04/17 06/03/17 11:45 05:41 19:31 POC Glucose 143 H 142 H 185 H 06/03/17 16:17 POC Glucose 119 H Phys Exam - Physical Examination Constitutional: NAD HEENT: PERRLA, moist MMs, sclera anicteric Neck: supple, full ROM Respiratory: no wheezing, clear to auscultation bilateral Cardiovascular: RRR Gastrointestinal: soft, non-tender, no distention Musculoskeletal: no edema LEFT TOE AMPUTATION Neurological: non-focal, moves all 4 limbs Psychiatric: normal affect, A&O x 3 Dx/Plan (1) Diabetic infection of left foot Code(s): E11.69 - TYPE 2 DIABETES MELLITUS WITH OTHER SPECIFIED COMPLICATION; L08.9 - LOCAL INFECTION OF THE SKIN AND SUBCUTANEOUS TISSUE, UNSP Status: Acute (2) Osteomyelitis of toe of left foot Code(s): M86.9 - OSTEOMYELITIS, UNSPECIFIED Status: Acute Comment: s/p L 2nd toe amputation yesterday. Continue antibiotics (3) HTN (hypertension) Code(s): I10 - ESSENTIAL (PRIMARY) HYPERTENSION Status: Chronic Comment: Pt' s blood pressures still high, add scheduled hydralazine (4) PAD (peripheral artery disease) Code(s): I73.9 - PERIPHERAL VASCULAR DISEASE, UNSPECIFIED Status: Chronic Comment: On aspirin (5) Diarrhea Code(s): R19.7 - DIARRHEA, UNSPECIFIED Status: Acute (6) Diabetes mellitus Code(s): E11.9 - TYPE 2 DIABETES MELLITUS WITHOUT COMPLICATIONS Status: Chronic Comment: Continue accuchecks, insulin sliding scale. - Plan cont current plan of care, plan discussed w/ family, continue antibiotics, PT/OT , out of bed/ambulate HOME WITH ANTIBIOTIC RX -: DIARRHEA MOST LIKELY FROM ABX. R/O INFECTIOUS PROCESS * .
[2017-06-04] MEDS: Atorvastatin Calcium 10 MG TAB PO SCH (20:39)
[2017-06-05] MEDS: Clopidogrel Bisulfate 75 MG TAB PO SCH (08:01)
[2017-06-05] MEDS: glipiZIDE 5 MG TAB PO SCH (08:01)
[2017-06-05] MEDS: Insulin NPH/Reg Insulin Hm 300 UNITS/3 ML VIAL SC SCH ×2 (08:02→11:28)
[2017-06-05] MEDS: Metoprolol Tartrate 100 MG TAB PO SCH (08:03)
[2017-06-05] MEDS: Amlodipine 10 MG TAB PO SCH (08:04)
[2017-06-05] MEDS: Lisinopril 5 MG TAB PO SCH (08:04)
[2017-06-05] MEDS: Famotidine 20 MG TAB PO SCH (08:04)
[2017-06-05] MEDS: hydrALAZINE 25 MG TAB PO SCH (08:05)
[2017-06-05] MEDS: Heparin 5,000 UNITS/ML VIAL SC SCH (08:05)
[2017-06-05] MEDS: Aspirin 81 mg Enteric Coated Tablet PO SCH (08:06)
[2017-06-05 08:18] VITALS: TEMP 97.8
[2017-06-05] MEDS: hydrALAZINE 20 MG/ML VIAL SLOW IVP PRN (09:10)
[2017-06-05] MEDS: metroNIDAZOLE 250 MG TAB PO SCH ×2 (09:11→14:15)
[2017-06-05] MEDS: Bacitracin Zinc 1 Packet TOP SCH (09:11)
--- NOTE | 2017-06-05 09:36 | PDOC.PN ---
- Subjective Encounter Start Date: 06/05/17 Encounter Start Time: 09:00 Subjective: I FEEL FINE THIS AM - Objective Resuscitation Status: Resuscitation Status FULL:Full Resuscitation MAR Reviewed: Yes Vital Signs & Weight: Vital Signs (12 hours) Temp Pulse Resp BP BP Pulse Ox 06/05/17 09:10 57 L 202/94 H 06/05/17 08:05 57 L 06/05/17 08:04 57 L 168/81 H 06/05/17 08:00 97.8 F 61 18 97 06/05/17 05:30 98.1 F 57 L 18 169/81 H 99 Weight Admit Weight 150 lb 6.4 oz Weight 150 lb 6.4 oz I&O: 06/04/17 06/05/17 06/06/17 06:59 06:59 06:59 Intake Total 1840 Balance 1840 Result Diagrams: 05/30/17 03:52 06/02/17 05:09 Additional Labs: Accuchecks 06/05/17 06/04/17 06/04/17 05:31 20:40 16:44 POC Glucose 124 H 172 H 97 06/04/17 11:45 POC Glucose 143 H Phys Exam - Physical Examination Constitutional: NAD HEENT: PERRLA, moist MMs RT FACIAL DROOP Neck: supple, full ROM Respiratory: no wheezing, no rhonchi Cardiovascular: RRR Gastrointestinal: soft, non-tender Musculoskeletal: no edema LEFT TOE AMPUTATION WITH DRESSING Neurological: non-focal Psychiatric: normal affect, A&O x 3 Skin: no rash Dx/Plan (1) Diabetic infection of left foot Code(s): E11.69 - TYPE 2 DIABETES MELLITUS WITH OTHER SPECIFIED COMPLICATION; L08.9 - LOCAL INFECTION OF THE SKIN AND SUBCUTANEOUS TISSUE, UNSP Status: Acute (2) Osteomyelitis of toe of left foot Code(s): M86.9 - OSTEOMYELITIS, UNSPECIFIED Status: Acute Comment: s/p L 2nd toe amputation yesterday. Continue antibiotics (3) HTN (hypertension) Code(s): I10 - ESSENTIAL (PRIMARY) HYPERTENSION Status: Chronic Comment: Pt' s blood pressures still high, add scheduled hydralazine (4) PAD (peripheral artery disease) Code(s): I73.9 - PERIPHERAL VASCULAR DISEASE, UNSPECIFIED Status: Chronic Comment: On aspirin (5) Diarrhea Code(s): R19.7 - DIARRHEA, UNSPECIFIED Status: Acute (6) Diabetes mellitus Code(s): E11.9 - TYPE 2 DIABETES MELLITUS WITHOUT COMPLICATIONS Status: Chronic Comment: Continue accuchecks, insulin sliding scale. - Plan cont current plan of care, plan discussed w/ family POSSIBLE D/C WITH OUTPATIENT ABX FOR 6 WEEKS TOTAL * .
[2017-06-05] MEDS: HYDROcodone/Acetaminophen 5/325 mg Tablet PO PRN (10:16)
[2017-06-05] MEDS: cefTRIAXone\\ROCEPHIN 2 GM in Sodium Chloride 0.9% 100 ML IVPB SCH (12:57)
[2017-06-05 14:18] VITALS: BP 156/77
--- NOTE | 2017-06-05 15:30 | DIS ---
DATE OF ADMISSION: 05/26/2017 DATE OF DISCHARGE: 06/05/2017 PRIMARY DISCHARGE DIAGNOSES: 1. Left second toe cellulitis amputation. 2. Acute on chronic kidney injury. 3. Accelerated hypertension. HOSPITAL COURSE: The patient was admitted on 05/26/2017 secondary to left toe swelling and erythema. The patient was found to have osteomyelitis of his left digit. The patient was seen and assessed b y the Infectious Disease Service. He was treated with multiple antimicrobials. It was decided that the proper treatment would include outpatient treatment with IV Rocephin as well as Flagyl. The familia ent was also seen and assessed by Dr. Hunter and a left toe amputation was performed. The patient was noted to have elevated blood pressures during his hospital stay, but it was reported by his family t hat his systolic blood pressure ranges anywhere from 160-200 as an outpatient. The patient improved on the proper antimicrobial therapy. He was deemed stable for discharge by all the appropriate servi mireya with outpatient antibiotic therapy and home health. CONSULTANTS: Dr. More, Infectious Disease; Dr. Hunter, Vascular Surgery. PROCEDURES: Include a PICC line placement, which was done on 05/29/2017. The patient also had a lef t second toe amputation performed on 06/01/[address] Celeste. DISPOSITION: Home with home health. DISCHARGE ACTIVITY: As tolerated. DISCHARGE MEDICATIONS: He will resume his home medications. We did add Flagyl for continued osteomy elitis therapy. The patient started on hydralazine 75 mg p.o. b.i.d. as well as lisinopril 5 mg p.o. b.i.d. PHYSICAL EXAMINATION: Upon discharge, GENERAL: No acute distress. HEENT: Normocephalic, atraumatic. EYES: PERRL. Extraocular muscles intact. CARDIAC: Regular rate and rhythm, no murmurs, regurg or gallop. LUNGS: Clear to auscultation. ABDOMEN: Nontender, nondistended. EXTREMITIES: No clubbing or cyanosis. There is left toe amputation with postop dressing. FOLLOWUP: The patient is to follow up with his PCP within 1-2 weeks. He is also to follow up in the General Surgery Clinic within 1-2 weeks. The patient is to present to the [facility] to receive 2 grams of Rocephin until 07/06/2017. He will also be on p.o. Flagyl until 06/26.
[2017-06-05] MEDS ORDERED: hydrALAZINE 25 MG TAB PO SCH (21:00)
== END 2017-06-05 14:37 | disposition home or self-care (01) | DRG 253 ==
LOC: ERS 16:58 → OBSVTOIN 22:29 → T4-B 22:29 → T4-A 23:53
PROVIDERS: ADMIT Internal Medicine; ATTEND Internal Medicine
PROC: 0SBQ0ZZ Excision of Left Toe Phalangeal Joint, Open Approach (ICD-10-PCS; principal; 2017-05-29)
PROC: 02HV33Z Insertion of Infusion Device into Superior Vena Cava, Percutaneous Approach (ICD-10-PCS; 2017-05-29)
PROC: 047U3ZZ Dilation of Left Peroneal Artery, Percutaneous Approach (ICD-10-PCS; 2017-05-30)
PROC: B4101ZZ Fluoroscopy of Abdominal Aorta using Low Osmolar Contrast (ICD-10-PCS; 2017-05-30)
PROC: B41G1ZZ Fluoroscopy of Left Lower Extremity Arteries using Low Osmolar Contrast (ICD-10-PCS; 2017-05-30)
PROC: 0Y6S0Z1 Detachment at Left 2nd Toe, High, Open Approach (ICD-10-PCS; 2017-06-01)
DX: I70.262 Atherosclerosis of native arteries of extremities with gangrene, left leg (principal); M86.9 Osteomyelitis, unspecified; E11.42 Type 2 diabetes mellitus with diabetic polyneuropathy; E11.52 Type 2 diabetes mellitus with diabetic peripheral angiopathy with gangrene; E11.69 Type 2 diabetes mellitus with other specified complication; Z79.4 Long term (current) use of insulin; Z79.84 Long term (current) use of oral hypoglycemic drugs; L03.032 Cellulitis of left toe; H54.8 Legal blindness, as defined in USA; E78.5 Hyperlipidemia, unspecified; B95.4 Other streptococcus as the cause of diseases classified elsewhere
CPT/HCPCS: 36415; 36416; 36569; 37228; 76942; 80048; 80053; 83036; 83605; 85025; 85347; 85610; 85652; 86140; 87040; 87045; 87046; 87070; 87077; 87205; 87449; 87899; 88305; 88311; 93923; 96361; 96365; 96375; 99152; 99153; A4216; C1751; C1760; C1769; C1887; G8978-GP-CL; G8979-GP-CJ; J0360; J0692; J0696; J1100; J1170; J1644; J2001; J2250; J2270; J2405; J2543; J2704; J3010; J3370; J7050

== ENCOUNTER 2017-06-14 13:48 | Outpatient (CLI) | payer SELFPAY ==
--- NOTE | 2017-06-14 16:02 | HP ---
DATE OF SERVICE: 06/14/2017 HISTORY OF PRESENT ILLNESS: Mr. Leif Torres is a very pleasant 62-year-old gentleman who [facility] a wound of the left foot subsequent to second toe amputati on on 06/01/[address] Izabela Celeste. Previously on 05/30/2017, the patient underwent percutaneous revascularization of the left lower extremity by Dr. Brandon Hunter. At surgery, the skin was free a pproximated with nylon sutures. 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 The patient is also receiving IV antibiotics as per Dr. Shaka More of Infectious Diseases. PAST MEDICAL HISTORY: 1. Diabetes mellitus. 2. Hypertension. 3. Legal blindness, bilateral. 4. Renal insufficiency. 5. Peripheral vascular disease. PAST SURGICAL HISTORY: 1. Left ear surgery, remote. 2. Amputation of left second toe on 06/01/2017. MEDICATIONS: 1. Aspirin. 2. Norvasc. 3. Plavix. 4. Zestril. 5. Apresoline. 6. Flagyl. 7. Glucotrol. 8. Zocor. 9. Rocephin IV. ALLERGIES: No known diagnosed allergies. SOCIAL HISTORY: Negative for tobacco or ETOH use. FAMILY HISTORY: Negative for diabetes mellitus or coronary artery disease. PHYSICAL EXAMINATION: VITAL SIGNS: Temperature 97.2, pulse 92, respirations 18, blood pressure 188/102. Accu-Chek 204. GENERAL: A 62-year-old gentleman sitting on chair in examination room in no acute distress. HEENT: Normocephalic, atraumatic. NECK: No nuchal rigidity. CHEST: Clear to auscultation. CARDIOVASCULAR: Regular rate and rhythm. ABDOMEN: Soft. EXTREMITIES: The wound of the left foot subsequent to amputation of the second toe has healed comple tely. No erythema of the left foot is present. A dorsalis pedis pulse is easily palpable on the lef t. No significant edema of the left foot is present on exam today. ASSESSMENT AND PLAN: 1. Left foot wound subsequent to amputation of the second toe on 06/01/2017. I have discussed the t reatment plan with Dr. Celeste and the nylon sutures will be discontinued today and Mr. Torres will be discharged from clinic with followup on a p.r.n. basis. As stated above, the patient is receiving I V antibiotics as per Dr. Shaka oMre of Infectious Diseases. I have recommended fitting with diabe tic shoes with inserts to Mr. Torres and the patient states he will consider being seen by the pedorth ist in 3 weeks. The patient understands and is in agreement with the preceding treatment plan. 2. Diabetes mellitus. The patient's Accu-Chek in clinic today is 204. 3. Hypertension. 4. Legal blindness, bilateral. 5. Renal insufficiency. 6. Peripheral vascular disease.
[2017-06-16] MEDS ORDERED: Sodium Chloride 0.9% 15 ML NEB ONE (12:25)
== END 2017-06-14 13:49 | disposition home or self-care (01) ==
LOC: WCC 13:48
PROVIDERS: ATTEND Family Medicine
DX: T81.89XD Other complications of procedures, not elsewhere classified, subsequent encounter (principal); I10 Essential (primary) hypertension; E11.9 Type 2 diabetes mellitus without complications; I73.9 Peripheral vascular disease, unspecified; N28.9 Disorder of kidney and ureter, unspecified; H54.8 Legal blindness, as defined in USA
CPT/HCPCS: 36416; 97602; 99203; G0463

== ENCOUNTER 2017-06-14 15:38 | Emergency (ER) | payer OTHER, SELFPAY ==
[2017-06-14 18:53] LABS: #Basophils 0.1 thou/uL (0.0-0.2); #Eosinphils 0.2 thou/uL (0.0-0.7); #Lymphocytes 2.3 thou/uL (1.20-3.40); #Monocytes 0.6 thou/uL (0.11-0.59); #Neutrophils 5.3 thou/uL (1.40-6.50); %Basophils 1.3 % (0.0-1.0); %Eosinophils 2.7 % (0.0-10.0); %Lymphocytes 27.4 % (21.0-51.0); %Monocytes 6.5 % (0.0-10.0); %Neutrophils 62.1 % (42.0-75.0); Hemoglobin 12.1 g/dL (14.0-18.0); Mean Corpuscular HGB CONC 33.7 g/dL (32.0-36.0); Mean Corpuscular Hemoglobin 32.6 pg (27.0-31.0); Mean Corpuscular Volume 96.5 fl (80.0-94.0); Mean Platelet Volume 8.6 fL (7.4-10.4); Platelet Count 209 thou/uL (130-400); RBC Distribution Width 12.8 % (11.5-14.5); Red Blood Cell (RBC) Count 3.73 mill/uL (4.70-6.10); White Blood Cell (WBC) Count 8.6 thou/uL (4.8-10.8)
[2017-06-14 19:20] LABS: ALT (SGPT) 16 U/L (8-55); AST (SGOT) 16 U/L (5-34); Albumin 4.4 g/dL (3.4-4.8); Alkaline Phosphatase 80 U/L (40-150); Anion Gap 14 mmol/L (10-20); BUN (Urea Nitrogen) 23 mg/dL (8.4-25.7); Bilirubin, Total 0.3 mg/dL (0.2-1.2); Calc. Creatinine Clearance 0 mL/min (70-130); Calcium 9.5 mg/dL (7.8-10.44); Carbon Dioxide 19 mmol/L (23-31); Chloride 111 mmol/L (98-107); Estimated GFR-MDRD 36; Globulin 3.7 g/dL (2.4-3.5); Glucose 118 mg/dL (80-115); Potassium 4.2 mmol/L (3.5-5.1); Protein, Total 8.1 g/dL (5.8-8.1); Sodium 140 mmol/L (136-145)
[2017-06-14 19:21] LABS: CKMB 2.8 ng/mL (0-6.6); Troponin I Less than 0.010 ng/mL (< 0.028)
[2017-06-14] MEDS ORDERED: cloNIDine 0.1 MG TAB ONE (19:33)
[2017-06-14] MEDS ORDERED: hydrALAZINE 20 MG/ML VIAL ONE (19:43)
--- NOTE | 2017-07-02 00:25 | EKG ---
Test Reason : HYPERTENSION Blood Pressure : / mmHG Vent. Rate : 083 BPM Atrial Rate : 083 BPM P-R Int : 186 ms QRS Dur : 092 ms QT Int : 402 ms P-R-T Axes : 022 022 034 degrees QTc Int : 472 ms Normal sinus rhythm Normal ECG Confirmed by COLLETTE DEL TORO ([id number]), state editor LENNOX LOMAX ([id number] on 07/02/2017 12:24:32 AM Referred By: Confirmed By:COLLETTE DEL TORO
== END 2017-06-14 21:09 | disposition home or self-care (01) ==
LOC: ERS 15:38
DX: I16.0 Hypertensive urgency (principal); E11.9 Type 2 diabetes mellitus without complications; I10 Essential (primary) hypertension; Z79.899 Other long term (current) drug therapy; Z79.82 Long term (current) use of aspirin
CPT/HCPCS: 36415; 80053; 82553; 84484; 85025; 93005; 96374; 96375; J0360; J0696

== ENCOUNTER 2017-08-03 05:50 | Day surgery (SDC) | payer OTHER ==
[2017-08-02 09:19] VITALS: BMI 25.8
[~2017-08-03 05:50] MED LIST changes: +Cyclopentolate 1% Opth Drop 2 ML BOT FS SCH; +EPINEPHrine 0.3 MG, Dextrose 50% 3 ML in Ophthalmic Irrigation Solution 500 ML FS SCH; -Heparin 1,000 UNITS/ML VIAL ONE; +Phenylephrine 2.5% Ophth Soln 5 ML BOT FS SCH
[2017-08-03] MEDS ORDERED: Phenylephrine 2.5% Ophth Soln 5 ML BOT ONE (06:00)
[2017-08-03] MEDS ORDERED: Cyclopentolate 1% Opth Drop 2 ML BOT ONE (06:00)
[2017-08-03] MEDS ORDERED: Midazolam HCl 2 mg/2 ml Vial ONE (06:20)
[2017-08-03] MEDS ORDERED: Fentanyl 100 MCG/2 ML VIAL ONE (06:20)
--- NOTE | 2017-08-03 08:53 | OP ---
DATE OF PROCEDURE: 08/03/2017 PREOPERATIVE DIAGNOSIS: Tractional retinal detachment, right eye. POSTOPERATIVE DIAGNOSIS: Tractional retinal detachment, right eye. PROCEDURE PERFORMED: Pars plana vitrectomy, tractional retinal detachment repair, right eye. SURGEON: Dr. Oseguera. ANESTHESIA: Local with monitored anesthesia care. COMPLICATIONS: None. PROCEDURE IN DETAIL: The patient was identified in the preoperative holding area. Appropriate infor med consent for the planned surgical procedure on the right eye had been obtained. The patient was t ransported to the operative suite. Appropriate cardiopulmonary monitoring was established. Local an esthesia was obtained using retrobulbar modified Van Lint lid block using 50/50 mixture of 4% lidocai ne, 0.75% bupivacaine. The patient was prepped and draped in the usual sterile manner for ophthalmic surgery on the right eye. Lid speculum was placed in the right eye. The 25-gauge trocars were plac ed in conjunctiva and sclera supratemporally, inferotemporally, and supranasally. Infusion line was placed inferotemporally. Light pipe and vitreous cutter were inserted into the eye. Core vitrectomy was performed. Traction was noted and tractional retinal detachment present along the supratemporal arcade. Traction was released from that area of the retina. No holes, breaks or tears were identif ied. Panretinal photocoagulation was placed on non-macular areas of the retina. Trocars were remove d and eye was noted to retain pressure well. Retrobulbar Kenalog and subconjunctival Ancef were plac ed. Atropine and antibiotic ointment were placed, and the eye was patched and shielded. Patient akin en to the postoperative recovery unit in good condition and suffered no immediate perioperative compl ications. DISCHARGE INSTRUCTIONS: Patient was instructed to keep patch and shield on, avoid lifting or bending , and follow up in the morning with Dr. Oseguera.
[2017-08-03] MEDS ORDERED: Lidocaine 1% PF 5 ML VIAL ONE (13:06)
[2017-08-03] MEDS ORDERED: PROPOFOL 200 MG/20 ML VIAL ONE (13:06)
== END 2017-08-03 08:36 | disposition home or self-care (01) ==
LOC: SDC 05:50
PROVIDERS: ATTEND Ophthalmology Retina Specialist
PROC: 08T43ZZ Resection of Right Vitreous, Percutaneous Approach (ICD-10-PCS; principal; 2017-08-03)
DX: H33.41 Traction detachment of retina, right eye (principal)
CPT/HCPCS: J0171; J2001; J2250; J2704; J3010

== ENCOUNTER 2017-09-07 08:15 | Day surgery (SDC) | payer OTHER ==
[2017-09-07] MEDS ORDERED: Cyclopentolate 1% Opth Drop 2 ML BOT ONE (08:29)
[2017-09-07] MEDS ORDERED: Phenylephrine 2.5% Ophth Soln 5 ML BOT ONE (08:29)
[2017-09-07] MEDS ORDERED: Lidocaine 2% 10 ML INJ ONE (09:37)
[2017-09-07] MEDS ORDERED: PROPOFOL 20 ML ONE (09:37)
[2017-09-07] MEDS ORDERED: Fentanyl 100 MCG/2 ML VIAL ONE (09:37)
[2017-09-07] MEDS ORDERED: Midazolam HCl 2 mg/2 ml Vial ONE (09:37)
--- NOTE | 2017-09-07 11:57 | OP ---
DATE OF SURGERY: 09/07/2017 PREOPERATIVE DIAGNOSIS: Tractional retinal detachment, left eye. POSTOPERATIVE DIAGNOSIS: Tractional retinal detachment, left eye. PROCEDURE: Pars plana vitrectomy, tractional retinal detachment repair, left eye. SURGEON: Ortiz Oseguera M.D. ANESTHESIA: Local with monitored anesthesia care. COMPLICATIONS: None. PROCEDURE IN DETAIL: The patient was identified in the preoperative holding area. Appropriate infor med consent for the planned surgical procedure on the left eye had been obtained. The patient was tr ansported to the operative suite. Appropriate cardiopulmonary monitoring established. Local anesthe kristina obtained using retrobulbar and modified Van Lint lid block using 50/50 mixture of 4% lidocaine an d 0.75% bupivacaine. The patient was prepped and draped in the usual sterile manner for ophthalmic s urgery on the left eye. Lid speculum was placed in the left eye. The 25-gauge trocars were placed i n conjunctiva and sclera supratemporally, inferotemporally, and supranasally. Infusion line was plac ed inferotemporally. Light pipe and vitreous cutter were inserted into the eye. Core vitrectomy was performed. Area of proliferans was noted along with supratemporal arcade. This was elevating the r etina. This was carefully dissected away from the retinal surface without creating any retinal holes . Attention was turned to areas of bleeding, cautery, and endolaser photocoagulation was placed unti l all bleeding was stopped. Guzman retinal photocoagulation was placed into all non-macular areas of th e retina. Trocars were removed. Superior temporal supranasal sclerotomy was sutured closed. Retrob ulbar Kenalog and subconjunctival Ancef were placed. Atropine and antibiotic ointment placed, and th e eye was patched and shielded. The patient was taken to postop recovery unit in good condition and suffered no immediate perioperative complications. Patient was instructed to keep patch and shield o n, avoid lifting or bending, and follow in the morning with Dr. Oseguera.
[2017-09-07] MEDS ORDERED: Lidocaine 1% PF 5 ML VIAL ONE (13:54)
[2017-09-07] MEDS ORDERED: PROPOFOL 200 MG/20 ML VIAL ONE (13:54)
== END 2017-09-07 11:20 | disposition home or self-care (01) ==
LOC: SDC 08:15
PROVIDERS: ATTEND Ophthalmology Retina Specialist
PROC: 08QF3ZZ Repair Left Retina, Percutaneous Approach (ICD-10-PCS; principal; 2017-09-07)
PROC: 08T53ZZ Resection of Left Vitreous, Percutaneous Approach (ICD-10-PCS; principal; 2017-09-07)
DX: H33.42 Traction detachment of retina, left eye (principal); H43.12 Vitreous hemorrhage, left eye; Z79.899 Other long term (current) drug therapy
CPT/HCPCS: J0171; J2001; J2250; J2704; J3010

== ENCOUNTER 2020-07-13 22:26 | Inpatient (IN) | payer MEDICARE ==
[2020-07-13 22:54] LABS: #Basophils 0.1 thou/uL (0.0-0.2); #Eosinphils 0.1 thou/uL (0.0-0.7); #Lymphocytes 2.4 thou/uL (1.20-3.40); #Monocytes 0.6 thou/uL (0.11-0.59); #Neutrophils 7.4 thou/uL (1.40-6.50); %Basophils 0.5 % (0.0-1.0); %Eosinophils 1.4 % (0.0-10.0); %Lymphocytes 22.8 % (21.0-51.0); %Monocytes 5.8 % (0.0-10.0); %Neutrophils 69.5 % (42.0-75.0); Hemoglobin 12.8 g/dL (14.0-18.0); Mean Corpuscular Hemoglobin 31.3 pg (27.0-31.0); Mean Corpuscular Volume 92.3 fL (78.0-98.0); Mean Platelet Volume 9.2 fL (7.4-10.4); Platelet Count 196 thou/uL (130-400); RBC Distribution Width 12.1 % (11.5-14.5); Red Blood Cell (RBC) Count 4.07 mill/uL (4.70-6.10); White Blood Cell (WBC) Count 10.6 thou/uL (4.8-10.8)
[2020-07-13] MEDS ORDERED: Labetalol HCl 100 MG/20 ML VIAL ONE (23:02)
[2020-07-13 23:15] LABS: ALT (SGPT) 15 U/L (8-55); AST (SGOT) 20 U/L (5-34); Albumin 3.8 g/dL (3.4-4.8); Alkaline Phosphatase 90 U/L (40-110); Anion Gap 15 mmol/L (10-20); BUN (Urea Nitrogen) 57 mg/dL (8.4-25.7); Bilirubin, Total 0.4 mg/dL (0.2-1.2); Calc. Creatinine Clearance 0 mL/min (70-130); Calcium 8.8 mg/dL (7.8-10.44); Carbon Dioxide 18 mmol/L (23-31); Chloride 106 mmol/L (98-107); Globulin 3.3 g/dL (2.4-3.5); Glucose 222 mg/dL (80-115); Potassium 4.4 mmol/L (3.5-5.1); Protein, Total 7.1 g/dL (5.8-8.1); Sodium 135 mmol/L (136-145)
[2020-07-13 23:38] LABS: CKMB 4.1 ng/mL (0-6.6)
[2020-07-13] MEDS ORDERED: Aspirin 325 MG TAB ONE (23:40)
[2020-07-14] MEDS ORDERED: Acetaminophen 500 MG TAB PO PRN (01:23)
[2020-07-14] MEDS ORDERED: Ondansetron ODT 4 MG TAB PO PRN (01:23)
[2020-07-14] MEDS ORDERED: Dextrose 50% Abboject 50 ML SYRINGE SLOW IVP PRN (01:24)
[2020-07-14] MEDS ORDERED: Dextrose 5% in Water 1,000 ML IV PRN (01:24)
[2020-07-14 01:54] VITALS: BMI 20.3
[2020-07-14] MEDS: Sodium Chloride 0.9% 1,000 ML IV SCH ×2 (02:00→20:57)
[2020-07-14] MEDS: Labetalol HCl 100 MG/20 ML VIAL SLOW IVP PRN ×3 (02:51→14:09)
[2020-07-14 04:31] LABS: #Basophils 0.1 thou/uL (0.0-0.2); #Eosinphils 0.2 thou/uL (0.0-0.7); #Lymphocytes 2.5 thou/uL (1.20-3.40); #Monocytes 0.7 thou/uL (0.11-0.59); #Neutrophils 5.8 thou/uL (1.40-6.50); %Basophils 0.6 % (0.0-1.0); %Eosinophils 1.8 % (0.0-10.0); %Monocytes 7.5 % (0.0-10.0); %Neutrophils 63.1 % (42.0-75.0); Hemoglobin 11.9 g/dL (14.0-18.0); Mean Corpuscular HGB CONC 34.8 g/dL (32.0-36.0); Mean Corpuscular Hemoglobin 32.2 pg (27.0-31.0); Mean Corpuscular Volume 92.4 fL (78.0-98.0); Mean Platelet Volume 9.5 fL (7.4-10.4); Platelet Count 180 thou/uL (130-400); Red Blood Cell (RBC) Count 3.69 mill/uL (4.70-6.10); White Blood Cell (WBC) Count 9.2 thou/uL (4.8-10.8)
[2020-07-14 04:38] LABS: Hemoglobin A1c 8.4 % (4.0-6.0)
[2020-07-14 04:49] LABS: ALT (SGPT) 12 U/L (8-55); AST (SGOT) 18 U/L (5-34); Albumin 3.3 g/dL (3.4-4.8); Alkaline Phosphatase 75 U/L (40-110); Anion Gap 12 mmol/L (10-20); BUN (Urea Nitrogen) 59 mg/dL (8.4-25.7); Bilirubin, Total 0.5 mg/dL (0.2-1.2); Calc. Creatinine Clearance 9 mL/min (70-130); Calcium 8.9 mg/dL (7.8-10.44); Carbon Dioxide 21 mmol/L (23-31); Cardiac Risk 4.4 (Less than 4.5); Chloride 107 mmol/L (98-107); Cholesterol 171 mg/dl (< 200 Desired); Globulin 2.8 g/dL (2.4-3.5); Glucose 168 mg/dL (80-115); HDL Cholesterol 39 mg/dL (>60 Neg Risk); LDL Cholesterol, Calculated 104 mg/dL; Magnesium 2.3 mg/dL (1.6-2.6); Phosphorus 5.2 mg/dL (2.3-4.7); Potassium 4.4 mmol/L (3.5-5.1); Protein, Total 6.1 g/dL (5.8-8.1); Sodium 136 mmol/L (136-145); Triglycerides 142 mg/dL (Less than 150)
[2020-07-14] MEDS ORDERED: Aspirin Chewable 81 MG TAB ONE (09:58)
[2020-07-14] MEDS ORDERED: Famotidine 20 MG TAB ONE (09:58)
[2020-07-14 10:04] LABS: SARS-CoV-2 PCR by NAA Not Detected (NotDetected)
[2020-07-14] MEDS: Amlodipine 10 MG TAB PO SCH (10:08)
[2020-07-14] MEDS: Aspirin 81 mg Enteric Coated Tablet PO SCH (10:10)
[2020-07-14] MEDS: hydrALAZINE 25 MG TAB PO SCH ×2 (10:10→20:53)
[2020-07-14] MEDS: Famotidine 20 MG TAB PO SCH (10:10)
[2020-07-14] MEDS ORDERED: Insulin Regular 300 UNITS/3 ML VIAL ONE (12:20)
[2020-07-14] MEDS: HumaLOG 300 UNITS/3 ML VIAL SC PRN ×2 (12:27→21:07)
[2020-07-14] MEDS ORDERED: Labetalol HCl 100 MG/20 ML VIAL ONE (14:05)
[2020-07-14] MEDS: Atorvastatin Calcium 40 MG TAB PO SCH (20:53)
[2020-07-15] MEDS: Sodium Chloride 0.9% 1,000 ML IV SCH ×2 (06:48→16:47)
[2020-07-15 08:09] LABS: #Basophils 0.1 thou/uL (0.0-0.2); #Eosinphils 0.2 thou/uL (0.0-0.7); #Lymphocytes 1.6 thou/uL (1.20-3.40); #Monocytes 0.7 thou/uL (0.11-0.59); %Basophils 0.9 % (0.0-1.0); %Lymphocytes 18.8 % (21.0-51.0); %Monocytes 7.7 % (0.0-10.0); %Neutrophils 70.7 % (42.0-75.0); Hemoglobin 11.7 g/dL (14.0-18.0); Mean Corpuscular HGB CONC 35.1 g/dL (32.0-36.0); Mean Corpuscular Hemoglobin 32.6 pg (27.0-31.0); Mean Corpuscular Volume 92.8 fL (78.0-98.0); Mean Platelet Volume 9.2 fL (7.4-10.4); Platelet Count 172 thou/uL (130-400); RBC Distribution Width 11.9 % (11.5-14.5); White Blood Cell (WBC) Count 8.5 thou/uL (4.8-10.8)
[2020-07-15 08:28] LABS: Anion Gap 15 mmol/L (10-20); BUN (Urea Nitrogen) 54 mg/dL (8.4-25.7); Calc. Creatinine Clearance 11 mL/min (70-130); Carbon Dioxide 16 mmol/L (23-31); Chloride 112 mmol/L (98-107); Glucose 156 mg/dL (80-115); Potassium 4.2 mmol/L (3.5-5.1); Sodium 139 mmol/L (136-145)
[2020-07-15] MEDS: Sodium Bicarbonate Tab 325 MG TAB PO SCH ×3 (09:21→21:37)
[2020-07-15] MEDS: Amlodipine 10 MG TAB PO SCH (09:22)
[2020-07-15] MEDS: cloNIDine 0.1 MG TAB PO SCH ×2 (09:22→21:37)
[2020-07-15] MEDS: Aspirin 81 mg Enteric Coated Tablet PO SCH (09:22)
[2020-07-15] MEDS: hydrALAZINE 25 MG TAB PO SCH ×2 (09:22→21:37)
[2020-07-15] MEDS: Famotidine 20 MG TAB PO SCH (09:22)
[2020-07-15] MEDS ORDERED: Alogliptin 6.25 MG TAB PO SCH (10:30)
[2020-07-15] MEDS: HumaLOG 300 UNITS/3 ML VIAL SC PRN ×2 (11:07→16:44)
[2020-07-15 15:54] LABS: Bacteria/HPF None Seen HPF (None Seen); Bilirubin Negative (Negative); Blood, Urine Trace (Negative); Clarity Clear (Clear); Glucose, Urine (Dipstick) 500 mg/dL (Negative); Ketone, Urine Negative (Negative); Leukocyte Negative Leu/uL (Negative); Nitrite Negative (Negative); Protein, Urine (Dipstick) 300 mg/dL (Neg-Trace); RBC/HPF 0-3 HPF (0-3); Specific Gravity, Urine 1.013 (1.002-1.036); Squamous Epithelial 0-3 HPF (0-3); Urobilinogen Normal mg/dL (Less than 2); WBC/HPF 0-3 HPF (0-3)
[2020-07-15] MEDS: Heparin 5,000 UNITS/ML VIAL SC SCH (21:38)
[2020-07-15] MEDS: Atorvastatin Calcium 40 MG TAB PO SCH (21:38)
[2020-07-16] MEDS: Sodium Chloride 0.9% 1,000 ML IV SCH ×2 (05:40→20:24)
[2020-07-16 08:36] LABS: #Eosinphils 0.2 thou/uL (0.0-0.7); #Lymphocytes 1.4 thou/uL (1.20-3.40); #Monocytes 0.5 thou/uL (0.11-0.59); #Neutrophils 5.3 thou/uL (1.40-6.50); %Basophils 0.3 % (0.0-1.0); %Eosinophils 2.2 % (0.0-10.0); %Lymphocytes 18.6 % (21.0-51.0); %Monocytes 6.7 % (0.0-10.0); %Neutrophils 72.2 % (42.0-75.0); Hemoglobin 10.8 g/dL (14.0-18.0); Mean Corpuscular HGB CONC 33.8 g/dL (32.0-36.0); Mean Corpuscular Hemoglobin 31.3 pg (27.0-31.0); Mean Corpuscular Volume 92.7 fL (78.0-98.0); Mean Platelet Volume 9.8 fL (7.4-10.4); Platelet Count 159 thou/uL (130-400); RBC Distribution Width 12.1 % (11.5-14.5); Red Blood Cell (RBC) Count 3.46 mill/uL (4.70-6.10); White Blood Cell (WBC) Count 7.3 thou/uL (4.8-10.8)
[2020-07-16] MEDS: cloNIDine 0.1 MG TAB PO SCH ×2 (08:37→22:34)
[2020-07-16] MEDS: hydrALAZINE 25 MG TAB PO SCH ×2 (08:38→23:05)
[2020-07-16] MEDS: Amlodipine 10 MG TAB PO SCH (08:38)
[2020-07-16] MEDS: Sodium Bicarbonate Tab 325 MG TAB PO SCH ×3 (08:38→23:05)
[2020-07-16] MEDS: Alogliptin 6.25 MG TAB PO SCH (08:39)
[2020-07-16] MEDS: Famotidine 20 MG TAB PO SCH (08:39)
[2020-07-16] MEDS: Heparin 5,000 UNITS/ML VIAL SC SCH ×2 (08:40→20:24)
[2020-07-16] MEDS: Aspirin Chewable 81 MG TAB PO SCH (08:40)
[2020-07-16 08:53] LABS: Anion Gap 13 mmol/L (10-20); BUN (Urea Nitrogen) 53 mg/dL (8.4-25.7); Calc. Creatinine Clearance 11 mL/min (70-130); Carbon Dioxide 17 mmol/L (23-31); Chloride 115 mmol/L (98-107); Glucose 145 mg/dL (80-115); Phosphorus 4.9 mg/dL (2.3-4.7); Potassium 4.3 mmol/L (3.5-5.1); Sodium 141 mmol/L (136-145)
[2020-07-16 09:27] LABS: Anion Gap 13 mmol/L (10-20); BUN (Urea Nitrogen) 52 mg/dL (8.4-25.7); Calc. Creatinine Clearance 11 mL/min (70-130); Calcium 8.2 mg/dL (7.8-10.44); Carbon Dioxide 16 mmol/L (23-31); Chloride 115 mmol/L (98-107); Glucose 148 mg/dL (80-115); Potassium 4.3 mmol/L (3.5-5.1); Sodium 140 mmol/L (136-145)
[2020-07-16] MEDS: HumaLOG 300 UNITS/3 ML VIAL SC PRN (15:06)
[2020-07-16] MEDS: Atorvastatin Calcium 40 MG TAB PO SCH (22:02)
[2020-07-17 05:20] LABS: #Eosinphils 0.3 thou/uL (0.0-0.7); #Lymphocytes 1.5 thou/uL (1.20-3.40); #Monocytes 0.5 thou/uL (0.11-0.59); #Neutrophils 5.8 thou/uL (1.40-6.50); %Basophils 0.6 % (0.0-1.0); %Eosinophils 3.8 % (0.0-10.0); %Lymphocytes 18.1 % (21.0-51.0); %Monocytes 6.2 % (0.0-10.0); %Neutrophils 71.3 % (42.0-75.0); Hemoglobin 11.3 g/dL (14.0-18.0); Mean Corpuscular HGB CONC 34.7 g/dL (32.0-36.0); Mean Corpuscular Hemoglobin 32.6 pg (27.0-31.0); Mean Corpuscular Volume 93.9 fL (78.0-98.0); Mean Platelet Volume 9.6 fL (7.4-10.4); Platelet Count 147 thou/uL (130-400); RBC Distribution Width 12.2 % (11.5-14.5); Red Blood Cell (RBC) Count 3.47 mill/uL (4.70-6.10); White Blood Cell (WBC) Count 8.1 thou/uL (4.8-10.8)
[2020-07-17] MEDS: Labetalol HCl 100 MG/20 ML VIAL SLOW IVP PRN (05:26)
[2020-07-17 05:38] LABS: Anion Gap 16 mmol/L (10-20); BUN (Urea Nitrogen) 52 mg/dL (8.4-25.7); Calc. Creatinine Clearance 11 mL/min (70-130); Calcium 8.6 mg/dL (7.8-10.44); Carbon Dioxide 14 mmol/L (23-31); Chloride 115 mmol/L (98-107); Glucose 106 mg/dL (80-115); Potassium 4.4 mmol/L (3.5-5.1); Sodium 141 mmol/L (136-145)
[2020-07-17] MEDS: Alogliptin 6.25 MG TAB PO SCH (08:05)
[2020-07-17] MEDS: Amlodipine 10 MG TAB PO SCH (08:05)
[2020-07-17] MEDS: Famotidine 20 MG TAB PO SCH (08:06)
[2020-07-17] MEDS: Aspirin Chewable 81 MG TAB PO SCH (08:06)
[2020-07-17] MEDS: cloNIDine 0.1 MG TAB PO SCH (08:06)
[2020-07-17] MEDS: hydrALAZINE 25 MG TAB PO SCH ×2 (08:07→20:44)
[2020-07-17] MEDS: Sodium Bicarbonate Tab 325 MG TAB PO SCH ×3 (08:07→20:41)
[2020-07-17] MEDS ORDERED: PROPOFOL 20 ML ONE (08:09)
[2020-07-17] MEDS ORDERED: Fentanyl 100 MCG/2 ML VIAL ONE (08:10)
[2020-07-17] MEDS ORDERED: PROPOFOL 200 MG/20 ML VIAL ONE (08:18)
[2020-07-17] MEDS ORDERED: PHENYLEPHRINE-NS 100 MCG/ML 10 ML SYRINGE ONE (08:18)
[2020-07-17] MEDS ORDERED: cloNIDine 0.1 MG TAB PO SCH (09:51)
[2020-07-17] MEDS ORDERED: Heparin 10,000 UNITS/ 10 ML VIAL ONE (11:30)
[2020-07-17] MEDS: Heparin 5,000 UNITS/ML VIAL SC SCH ×2 (12:01→20:43)
[2020-07-17] MEDS: cloNIDine 0.2 MG TAB PO SCH ×3 (12:01→20:44)
[2020-07-17 13:57] LABS: Hep B Surf Ag Non-Reactive S/CO (NonReactive)
[2020-07-17 14:34] LABS: HBSAB Concentration Less than 8.00 mIU/mL; Hep B Surf AB Non-Reactive (NonReactive); Hep C IgG Ab Non-Reactive (NonReactive); Hep C Index 0.23 S/CO (0-0.79)
[2020-07-17 14:59] LABS: Hep B Core Total Ab Reactive (NonReactive)
[2020-07-17 15:00] LABS: Hep B Core Total Index 10.51 S/CO (0-0.79)
[2020-07-17] MEDS: Sodium Chloride 0.9% 1,000 ML IV SCH (16:27)
[2020-07-17] MEDS: HumaLOG 300 UNITS/3 ML VIAL SC PRN (17:41)
[2020-07-17] MEDS: Atorvastatin Calcium 40 MG TAB PO SCH (20:44)
[2020-07-18] MEDS: Sodium Chloride 0.9% 1,000 ML IV SCH (05:05)
[2020-07-18 05:35] LABS: Anion Gap 12 mmol/L (10-20); BUN (Urea Nitrogen) 40 mg/dL (8.4-25.7); Calc. Creatinine Clearance 13 mL/min (70-130); Calcium 7.8 mg/dL (7.8-10.44); Carbon Dioxide 20 mmol/L (23-31); Chloride 111 mmol/L (98-107); Glucose 125 mg/dL (80-115); Potassium 4.4 mmol/L (3.5-5.1); Sodium 139 mmol/L (136-145)
[2020-07-18] MEDS: Heparin 5,000 UNITS/ML VIAL SC SCH ×2 (08:38→20:54)
[2020-07-18] MEDS: Alogliptin 6.25 MG TAB PO SCH (08:40)
[2020-07-18] MEDS: Aspirin Chewable 81 MG TAB PO SCH (08:41)
[2020-07-18] MEDS: Sodium Bicarbonate Tab 325 MG TAB PO SCH ×3 (08:41→20:52)
[2020-07-18] MEDS: Amlodipine 10 MG TAB PO SCH (08:41)
[2020-07-18] MEDS: Famotidine 20 MG TAB PO SCH (08:41)
[2020-07-18] MEDS: hydrALAZINE 25 MG TAB PO SCH ×2 (08:41→20:53)
[2020-07-18] MEDS: cloNIDine 0.2 MG TAB PO SCH ×2 (08:41→20:53)
[2020-07-18] MEDS ORDERED: Heparin 10,000 UNITS/ 10 ML VIAL ONE (11:31)
[2020-07-18] MEDS: Atorvastatin Calcium 40 MG TAB PO SCH (20:54)
[2020-07-18] MEDS: Triple Antibiotic Oint 1 GM Packet TOP SCH (20:55)
[2020-07-18] MEDS: HumaLOG 300 UNITS/3 ML VIAL SC PRN (23:38)
[2020-07-19] MEDS: Amlodipine 10 MG TAB PO SCH (09:53)
[2020-07-19] MEDS: hydrALAZINE 25 MG TAB PO SCH ×2 (09:53→20:00)
[2020-07-19] MEDS: Heparin 5,000 UNITS/ML VIAL SC SCH ×2 (09:53→20:02)
[2020-07-19] MEDS: Alogliptin 6.25 MG TAB PO SCH (09:53)
[2020-07-19] MEDS: Famotidine 20 MG TAB PO SCH (09:53)
[2020-07-19] MEDS: Sodium Bicarbonate Tab 325 MG TAB PO SCH ×3 (09:53→19:59)
[2020-07-19] MEDS: cloNIDine 0.2 MG TAB PO SCH ×2 (09:54→19:59)
[2020-07-19] MEDS: Aspirin Chewable 81 MG TAB PO SCH (09:54)
[2020-07-19] MEDS: HumaLOG 300 UNITS/3 ML VIAL SC PRN ×3 (12:59→20:01)
[2020-07-19] MEDS: Triple Antibiotic Oint 1 GM Packet TOP SCH ×2 (12:59→19:59)
[2020-07-19] MEDS: Atorvastatin Calcium 40 MG TAB PO SCH (20:00)
[2020-07-20] MEDS: HumaLOG 300 UNITS/3 ML VIAL SC PRN (06:50)
[2020-07-20] MEDS ORDERED: Tuberculin PPD 0.1 ML VIAL I-DERMAL SCH (08:30)
[2020-07-20] MEDS: hydrALAZINE 25 MG TAB PO SCH ×2 (08:34→20:37)
[2020-07-20] MEDS: cloNIDine 0.2 MG TAB PO SCH ×2 (08:35→20:38)
[2020-07-20] MEDS ORDERED: Lidocaine 1% w/Epinephrine 1:100K 20 ML VIAL ONE (08:42)
[2020-07-20] MEDS ORDERED: Heparin 10,000 UNITS/ 10 ML VIAL ONE (10:06)
[2020-07-20 10:51] LABS: Phosphorus 3.2 mg/dL (2.3-4.7)
[2020-07-20] MEDS: Aspirin Chewable 81 MG TAB PO SCH (14:02)
[2020-07-20] MEDS: Alogliptin 6.25 MG TAB PO SCH (14:02)
[2020-07-20] MEDS: Amlodipine 10 MG TAB PO SCH (14:02)
[2020-07-20] MEDS: Triple Antibiotic Oint 1 GM Packet TOP SCH ×2 (14:03→20:38)
[2020-07-20] MEDS: Famotidine 20 MG TAB PO SCH (14:03)
[2020-07-20] MEDS: Sodium Bicarbonate Tab 325 MG TAB PO SCH ×3 (14:03→20:38)
[2020-07-20] MEDS: Heparin 5,000 UNITS/ML VIAL SC SCH ×2 (14:04→20:36)
[2020-07-20] MEDS ORDERED: Carvedilol 25 MG TAB PO SCH (14:30)
[2020-07-20] MEDS: Atorvastatin Calcium 40 MG TAB PO SCH (20:38)
[2020-07-20] MEDS ORDERED: DorzolamidE/Timolol 2%/0.5% Ophth Soln 10 ml Bottle EA EYE SCH (21:00)
[2020-07-20] MEDS ORDERED: Brimonidine Tartrate 0.2% Ophth Soln 5 ml Bottle EA EYE SCH (21:00)
[2020-07-21] MEDS: Ondansetron PF 4 MG/2 ML Vial IVP PRN ×2 (05:01→05:05)
[2020-07-21 05:58] LABS: #Eosinphils 0.1 thou/uL (0.0-0.7); #Lymphocytes 1.5 thou/uL (1.20-3.40); #Monocytes 0.5 thou/uL (0.11-0.59); #Neutrophils 4.4 thou/uL (1.40-6.50); %Basophils 0.6 % (0.0-1.0); %Eosinophils 0.9 % (0.0-10.0); %Lymphocytes 22.6 % (21.0-51.0); %Monocytes 7.3 % (0.0-10.0); %Neutrophils 68.7 % (42.0-75.0); Hemoglobin 10.6 g/dL (14.0-18.0); Mean Corpuscular HGB CONC 33.6 g/dL (32.0-36.0); Mean Corpuscular Volume 92.4 fL (78.0-98.0); Mean Platelet Volume 10.4 fL (7.4-10.4); Platelet Count 119 thou/uL (130-400); Platelet Morphology Comment Appears Decreased; RBC Distribution Width 11.7 % (11.5-14.5); Red Blood Cell (RBC) Count 3.43 mill/uL (4.70-6.10); White Blood Cell (WBC) Count 6.5 thou/uL (4.8-10.8)
[2020-07-21 06:07] LABS: Anion Gap 15 mmol/L (10-20); Calc. Creatinine Clearance 14 mL/min (70-130); Calcium 8.5 mg/dL (7.8-10.44); Carbon Dioxide 27 mmol/L (23-31); Chloride 102 mmol/L (98-107); Glucose 180 mg/dL (80-115); Sodium 140 mmol/L (136-145)
[2020-07-21 07:09] LABS: BUN (Urea Nitrogen) 29 mg/dL (8.4-25.7)
[2020-07-21 07:43] LABS: Hep B Core Total Ab Reactive (NonReactive); Hep B Core Total Index 10.19 S/CO (0-0.79)
[2020-07-21 08:20] LABS: Hep C IgG Ab Non-Reactive (NonReactive); Hep C Index 0.22 S/CO (0-0.79)
[2020-07-21 08:21] LABS: HBSAB Concentration Less than 8.00 mIU/mL; HBSAg Index 0.29 S/CO (0-0.99); Hep B Surf AB Non-Reactive (NonReactive); Hep B Surf Ag Non-Reactive S/CO (NonReactive)
[2020-07-21] MEDS: Aspirin Chewable 81 MG TAB PO SCH (08:49)
[2020-07-21] MEDS: Heparin 5,000 UNITS/ML VIAL SC SCH ×2 (08:49→21:53)
[2020-07-21] MEDS: hydrALAZINE 25 MG TAB PO SCH ×2 (08:49→21:52)
[2020-07-21] MEDS: cloNIDine 0.2 MG TAB PO SCH ×2 (08:49→21:52)
[2020-07-21] MEDS: Triple Antibiotic Oint 1 GM Packet TOP SCH ×2 (08:50→21:52)
[2020-07-21] MEDS: Alogliptin 6.25 MG TAB PO SCH (08:50)
[2020-07-21] MEDS: Sodium Bicarbonate Tab 325 MG TAB PO SCH ×3 (08:50→21:52)
[2020-07-21] MEDS: Amlodipine 10 MG TAB PO SCH (08:50)
[2020-07-21] MEDS: Carvedilol 6.25 MG TAB PO SCH ×2 (08:50→17:03)
[2020-07-21] MEDS: Famotidine 20 MG TAB PO SCH (08:50)
[2020-07-21] MEDS: Brimonidine Tartrate 0.2% Ophth Soln 5 ml Bottle EA EYE SCH ×3 (08:53→21:53)
[2020-07-21] MEDS ORDERED: Non-Formulary Item 1 EACH (Latanoprostene Bunod [Vyzulta] 5 ML Drops) EA EYE SCH (09:00)
[2020-07-21] MEDS ORDERED: [UNRECOGNIZED DRUG - OTHER] EA EYE SCH (09:00)
[2020-07-21] MEDS ORDERED: Heparin 10,000 UNITS/ 10 ML VIAL ONE (11:47)
[2020-07-21] MEDS: DorzolamidE/Timolol 2%/0.5% Ophth Soln 10 ml Bottle EA EYE SCH ×2 (15:26→21:53)
[2020-07-21] MEDS: HumaLOG 300 UNITS/3 ML VIAL SC PRN (17:03)
[2020-07-21] MEDS: Atorvastatin Calcium 40 MG TAB PO SCH (21:52)
[2020-07-22] MEDS: Carvedilol 6.25 MG TAB PO SCH ×2 (05:49→16:18)
[2020-07-22 06:26] LABS: Anion Gap 15 mmol/L (10-20); BUN (Urea Nitrogen) 24 mg/dL (8.4-25.7); Calc. Creatinine Clearance 15 mL/min (70-130); Calcium 8.3 mg/dL (7.8-10.44); Carbon Dioxide 26 mmol/L (23-31); Chloride 100 mmol/L (98-107); Glucose 194 mg/dL (80-115); Potassium 3.8 mmol/L (3.5-5.1); Sodium 137 mmol/L (136-145)
[2020-07-22] MEDS ORDERED: Sodium Chloride 0.9% 20 ML ONE (10:08)
[2020-07-22] MEDS ORDERED: Protamine Sulfate 50 MG/5 ML VIAL ONE (10:08)
[2020-07-22] MEDS ORDERED: Bupivacaine 0.25% HCL 30 ML VIAL ONE (10:08)
[2020-07-22] MEDS ORDERED: Heparin 5,000 UNITS/ML VIAL ONE (10:08)
[2020-07-22] MEDS ORDERED: Lidocaine 1% w/Epinephrine 1:100K 20 ML VIAL ONE (10:08)
[2020-07-22] MEDS ORDERED: Heparin 10,000 UNITS/ 10 ML VIAL ONE (10:08)
[2020-07-22] MEDS ORDERED: Midazolam HCl 2 mg/2 ml Vial ONE (10:10)
[2020-07-22] MEDS ORDERED: Fentanyl 100 MCG/2 ML VIAL ONE (10:10)
[2020-07-22] MEDS ORDERED: Bupivacaine HCl 0.5%/Epinephrine 1:200,000/PF 30 ml Vial ONE (11:06)
[2020-07-22 12:35] LABS: #Eosinphils 0.1 thou/uL (0.0-0.7); #Lymphocytes 1.3 thou/uL (1.20-3.40); #Monocytes 0.5 thou/uL (0.11-0.59); #Neutrophils 4.3 thou/uL (1.40-6.50); %Basophils 0.4 % (0.0-1.0); %Eosinophils 1.4 % (0.0-10.0); %Lymphocytes 20.6 % (21.0-51.0); %Neutrophils 69.7 % (42.0-75.0); Hemoglobin 10.2 g/dL (14.0-18.0); Mean Corpuscular HGB CONC 34.4 g/dL (32.0-36.0); Mean Corpuscular Hemoglobin 32.2 pg (27.0-31.0); Mean Corpuscular Volume 93.6 fL (78.0-98.0); Mean Platelet Volume 11.3 fL (7.4-10.4); Platelet Count 116 thou/uL (130-400); RBC Distribution Width 11.7 % (11.5-14.5); Red Blood Cell (RBC) Count 3.16 mill/uL (4.70-6.10); White Blood Cell (WBC) Count 6.2 thou/uL (4.8-10.8)
[2020-07-22] MEDS ORDERED: Ondansetron HCl/PF 4 MG/2 ML Vial IVP PRN (12:39)
[2020-07-22] MEDS: Aspirin Chewable 81 MG TAB PO SCH (16:08)
[2020-07-22] MEDS: Famotidine 20 MG TAB PO SCH (16:08)
[2020-07-22] MEDS: Amlodipine 10 MG TAB PO SCH (16:08)
[2020-07-22] MEDS: Alogliptin 6.25 MG TAB PO SCH (16:09)
[2020-07-22] MEDS: Brimonidine Tartrate 0.2% Ophth Soln 5 ml Bottle EA EYE SCH ×3 (16:10→22:05)
[2020-07-22] MEDS: Calcitriol 0.25 MCG CAP PO SCH (16:10)
[2020-07-22] MEDS: hydrALAZINE 25 MG TAB PO SCH ×2 (16:11→22:07)
[2020-07-22] MEDS: Heparin 5,000 UNITS/ML VIAL SC SCH ×2 (16:11→22:06)
[2020-07-22] MEDS: Triple Antibiotic Oint 1 GM Packet TOP SCH ×2 (16:11→22:07)
[2020-07-22] MEDS: DorzolamidE/Timolol 2%/0.5% Ophth Soln 10 ml Bottle EA EYE SCH ×2 (16:12→22:06)
[2020-07-22] MEDS: cloNIDine 0.2 MG TAB PO SCH ×2 (16:12→22:06)
[2020-07-22] MEDS: Sodium Bicarbonate Tab 325 MG TAB PO SCH ×3 (16:13→22:06)
[2020-07-22] MEDS: Carvedilol 25 MG TAB PO SCH (18:33)
[2020-07-22] MEDS: HumaLOG 300 UNITS/3 ML VIAL SC PRN (22:05)
[2020-07-22] MEDS: Atorvastatin Calcium 40 MG TAB PO SCH (22:06)
[2020-07-23 05:04] LABS: #Lymphocytes 0.8 thou/uL (1.20-3.40); #Monocytes 0.9 thou/uL (0.11-0.59); #Neutrophils 13.4 thou/uL (1.40-6.50); %Basophils 0.3 % (0.0-1.0); %Eosinophils 0.1 % (0.0-10.0); %Lymphocytes 5.4 % (21.0-51.0); %Monocytes 6.1 % (0.0-10.0); %Neutrophils 88.1 % (42.0-75.0); Hemoglobin 9.5 g/dL (14.0-18.0); Mean Corpuscular HGB CONC 33.7 g/dL (32.0-36.0); Mean Corpuscular Hemoglobin 31.1 pg (27.0-31.0); Mean Corpuscular Volume 92.4 fL (78.0-98.0); Platelet Count 105 thou/uL (130-400); RBC Distribution Width 11.5 % (11.5-14.5); Red Blood Cell (RBC) Count 3.05 mill/uL (4.70-6.10); White Blood Cell (WBC) Count 15.2 thou/uL (4.8-10.8)
[2020-07-23 05:24] LABS: Anion Gap 15 mmol/L (10-20); BUN (Urea Nitrogen) 39 mg/dL (8.4-25.7); Calc. Creatinine Clearance 10 mL/min (70-130); Carbon Dioxide 27 mmol/L (23-31); Chloride 100 mmol/L (98-107); Glucose 168 mg/dL (80-115); Potassium 3.8 mmol/L (3.5-5.1); Sodium 138 mmol/L (136-145)
[2020-07-23] MEDS: HumaLOG 300 UNITS/3 ML VIAL SC PRN ×3 (06:06→21:39)
[2020-07-23] MEDS: hydrALAZINE 25 MG TAB PO SCH ×3 (08:41→21:40)
[2020-07-23] MEDS: Sodium Bicarbonate Tab 325 MG TAB PO SCH ×3 (08:41→21:39)
[2020-07-23] MEDS: Brimonidine Tartrate 0.2% Ophth Soln 5 ml Bottle EA EYE SCH ×3 (09:03→21:40)
[2020-07-23] MEDS: DorzolamidE/Timolol 2%/0.5% Ophth Soln 10 ml Bottle EA EYE SCH ×2 (09:03→21:38)
[2020-07-23] MEDS: Triple Antibiotic Oint 1 GM Packet TOP SCH ×2 (09:04→21:40)
[2020-07-23] MEDS: Heparin 5,000 UNITS/ML VIAL SC SCH ×2 (09:16→21:39)
[2020-07-23] MEDS: Aspirin Chewable 81 MG TAB PO SCH (12:15)
[2020-07-23] MEDS: Alogliptin 6.25 MG TAB PO SCH (12:15)
[2020-07-23] MEDS: Famotidine 20 MG TAB PO SCH (12:16)
[2020-07-23] MEDS: Carvedilol 25 MG TAB PO SCH ×2 (12:16→17:07)
[2020-07-23] MEDS: cloNIDine 0.2 MG TAB PO SCH ×2 (12:17→21:39)
[2020-07-23] MEDS: Calcitriol 0.25 MCG CAP PO SCH (12:18)
[2020-07-23] MEDS ORDERED: Heparin 10,000 UNITS/ 10 ML VIAL ONE (14:50)
[2020-07-23] MEDS: Amlodipine 10 MG TAB PO SCH (14:56)
[2020-07-23] MEDS: Atorvastatin Calcium 40 MG TAB PO SCH (21:40)
[2020-07-24 05:27] LABS: #Basophils 0.1 thou/uL (0.0-0.2); #Lymphocytes 1.3 thou/uL (1.20-3.40); #Monocytes 1.2 thou/uL (0.11-0.59); %Basophils 0.6 % (0.0-1.0); %Eosinophils 0.2 % (0.0-10.0); %Lymphocytes 10.8 % (21.0-51.0); %Monocytes 10.2 % (0.0-10.0); %Neutrophils 78.1 % (42.0-75.0); Hemoglobin 9.4 g/dL (14.0-18.0); Mean Corpuscular HGB CONC 34.9 g/dL (32.0-36.0); Mean Corpuscular Hemoglobin 32.5 pg (27.0-31.0); Mean Corpuscular Volume 93.2 fL (78.0-98.0); Mean Platelet Volume 10.3 fL (7.4-10.4); Platelet Count 107 thou/uL (130-400); RBC Distribution Width 11.6 % (11.5-14.5); White Blood Cell (WBC) Count 11.5 thou/uL (4.8-10.8)
[2020-07-24 05:47] LABS: Anion Gap 16 mmol/L (10-20); BUN (Urea Nitrogen) 29 mg/dL (8.4-25.7); Calc. Creatinine Clearance 12 mL/min (70-130); Calcium 8.2 mg/dL (7.8-10.44); Carbon Dioxide 28 mmol/L (23-31); Chloride 99 mmol/L (98-107); Glucose 223 mg/dL (80-115); Sodium 139 mmol/L (136-145)
[2020-07-24] MEDS: HumaLOG 300 UNITS/3 ML VIAL SC PRN ×4 (05:50→20:31)
[2020-07-24] MEDS: Alogliptin 6.25 MG TAB PO SCH (09:11)
[2020-07-24] MEDS: Aspirin Chewable 81 MG TAB PO SCH (09:11)
[2020-07-24] MEDS: Famotidine 20 MG TAB PO SCH (09:11)
[2020-07-24] MEDS: Sodium Bicarbonate Tab 325 MG TAB PO SCH ×3 (09:11→20:31)
[2020-07-24] MEDS: Triple Antibiotic Oint 1 GM Packet TOP SCH ×2 (09:12→20:31)
[2020-07-24] MEDS: hydrALAZINE 25 MG TAB PO SCH ×3 (09:12→20:31)
[2020-07-24] MEDS: Calcitriol 0.25 MCG CAP PO SCH (09:12)
[2020-07-24] MEDS: cloNIDine 0.2 MG TAB PO SCH ×2 (09:12→20:28)
[2020-07-24] MEDS: Amlodipine 10 MG TAB PO SCH (09:12)
[2020-07-24] MEDS: Carvedilol 25 MG TAB PO SCH ×2 (09:12→17:24)
[2020-07-24] MEDS: Heparin 5,000 UNITS/ML VIAL SC SCH ×2 (09:13→20:30)
[2020-07-24] MEDS: Brimonidine Tartrate 0.2% Ophth Soln 5 ml Bottle EA EYE SCH ×3 (09:13→20:27)
[2020-07-24] MEDS: DorzolamidE/Timolol 2%/0.5% Ophth Soln 10 ml Bottle EA EYE SCH ×2 (09:13→20:29)
[2020-07-24 15:37] VITALS: TEMP 97.5
[2020-07-24] MEDS ORDERED: Docusate 100 MG CAP PO PRN (18:16)
[2020-07-24] MEDS ORDERED: Polyethylene Glycol 3350 17 GM Packet PO SCH (18:30)
[2020-07-24] MEDS: Atorvastatin Calcium 40 MG TAB PO SCH (20:27)
[2020-07-24 20:48] VITALS: BP 128/67
== END 2020-07-24 22:47 | DRG 40 ==
LOC: ERS 22:26 → ERHOLD 07-14 01:23 → 2SE 07-14 18:30
PROVIDERS: ADMIT Family Medicine; ATTEND Hospitalist
PROC: B24BZZ4 Ultrasonography of Heart with Aorta, Transesophageal (ICD-10-PCS; 2020-07-16)
PROC: 06HY33Z Insertion of Infusion Device into Lower Vein, Percutaneous Approach (ICD-10-PCS; 2020-07-17)
PROC: 5A1D70Z Performance of Urinary Filtration, Intermittent, Less than 6 Hours Per Day (ICD-10-PCS; 2020-07-17)
PROC: B44LZZZ Ultrasonography of Femoral Artery (ICD-10-PCS; 2020-07-17)
PROC: 0JH602Z Insertion of Monitoring Device into Chest Subcutaneous Tissue and Fascia, Open Approach (ICD-10-PCS; principal; 2020-07-20)
PROC: 031B0ZF Bypass Right Radial Artery to Lower Arm Vein, Open Approach (ICD-10-PCS; 2020-07-22)
PROC: 0K9 Muscles, Drainage (ICD-10-PCS; 2020-07-22)
PROC: 0JH63XZ Insertion of Tunneled Vascular Access Device into Chest Subcutaneous Tissue and Fascia, Percutaneous Approach (ICD-10-PCS; 2020-07-22)
PROC: 02HV33Z Insertion of Infusion Device into Superior Vena Cava, Percutaneous Approach (ICD-10-PCS; 2020-07-22)
PROC: B548ZZA Ultrasonography of Superior Vena Cava, Guidance (ICD-10-PCS; 2020-07-22)
DX: I63.89 Other cerebral infarction (principal); N18.6 End stage renal disease; N17.9 Acute kidney failure, unspecified; E87.2 Acidosis; G81.94 Hemiplegia, unspecified affecting left nondominant side; I16.1 Hypertensive emergency; M86.172 Other acute osteomyelitis, left ankle and foot; I12.0 Hypertensive chronic kidney disease with stage 5 chronic kidney disease or end stage renal disease; G93.49 Other encephalopathy; N25.81 Secondary hyperparathyroidism of renal origin; Z20.822 Contact with and (suspected) exposure to COVID-19; Z23 Encounter for immunization; H54.40 Blindness, one eye, unspecified eye; R29.6 Repeated falls; E11.22 Type 2 diabetes mellitus with diabetic chronic kidney disease; E78.5 Hyperlipidemia, unspecified; R29.810 Facial weakness; G83.14 Monoplegia of lower limb affecting left nondominant side; R29.704 NIHSS score 4; E11.69 Type 2 diabetes mellitus with other specified complication; E11.51 Type 2 diabetes mellitus with diabetic peripheral angiopathy without gangrene; R47.1 Dysarthria and anarthria; R13.12 Dysphagia, oropharyngeal phase; H43.12 Vitreous hemorrhage, left eye; G93.89 Other specified disorders of brain; Z98.890 Other specified postprocedural states; Z91.14 Patient's other noncompliance with medication regimen; Z79.899 Other long term (current) drug therapy
CPT/HCPCS: 33285; 36415; 36416; 70450; 70491; 70551; 71045; 74230; 76536; 76770; 80048; 80053; 80061; 81001; 82553; 83036; 83735; 83970; 84100; 84484; 85025; 86580; 86704; 86706; 86803; 87340; 87635; 88173; 90471; 90732; 90935; 93005; 93306; 93312; 93880; 93970; 95712; 95819; 95957; 96374; 96376; C1752; C1764; G0009; G0257; J1642; J1644; J1815; J2250; J2405; J2704; J2720; J3010; S0020; U0003; U0005

== ENCOUNTER 2020-12-07 15:07 | Inpatient (IN) | payer MEDICARE ==
[2020-12-07 16:17] LABS: #Basophils 0.1 thou/uL (0.0-0.2); #Eosinphils 0.1 thou/uL (0.0-0.7); #Lymphocytes 1.4 thou/uL (1.20-3.40); #Monocytes 0.9 thou/uL (0.11-0.59); #Neutrophils 16.6 thou/uL (1.40-6.50); %Basophils 0.3 % (0.0-1.0); %Eosinophils 0.4 % (0.0-10.0); %Lymphocytes 7.4 % (21.0-51.0); %Monocytes 4.8 % (0.0-10.0); %Neutrophils 87.1 % (42.0-75.0); Hemoglobin 9.1 g/dL (14.0-18.0); Mean Corpuscular HGB CONC 33.3 g/dL (32.0-36.0); Mean Corpuscular Hemoglobin 30.2 pg (27.0-31.0); Mean Corpuscular Volume 90.7 fL (78.0-98.0); Mean Platelet Volume 7.2 fL (7.4-10.4); Platelet Count 276 thou/uL (130-400); White Blood Cell (WBC) Count 19.1 thou/uL (4.8-10.8)
[2020-12-07 16:36] LABS: ALT (SGPT) 9 U/L (8-55); AST (SGOT) 13 U/L (5-34); Albumin 2.4 g/dL (3.4-4.8); Alkaline Phosphatase 429 U/L (40-110); Anion Gap 15 mmol/L (10-20); BUN (Urea Nitrogen) 33 mg/dL (8.4-25.7); Bilirubin, Total 0.7 mg/dL (0.2-1.2); CK (CPK) Less than 9 U/L (30-200); Calc. Creatinine Clearance 0 mL/min (70-130); Calcium 7.8 mg/dL (7.8-10.44); Carbon Dioxide 25 mmol/L (23-31); Chloride 102 mmol/L (98-107); Globulin 3.5 g/dL (2.4-3.5); Glucose 176 mg/dL (80-115); Magnesium 1.9 mg/dL (1.6-2.6); Potassium 3.9 mmol/L (3.5-5.1); Protein, Total 5.9 g/dL (5.8-8.1); Sodium 138 mmol/L (136-145)
[2020-12-07] MEDS ORDERED: Vancomycin 1 GM/200 ML BAG ONE (17:25)
[2020-12-07] MEDS ORDERED: Cefepime 2 GM VIAL ONE (17:28)
[2020-12-07 18:37] LABS: SARS-CoV-2 NAA Rapid Test Not Detected (NotDetected)
[2020-12-07] MEDS ORDERED: Ondansetron PF 4 MG/2 ML Vial IVP PRN (22:30)
[2020-12-07] MEDS ORDERED: Acetaminophen 325 MG TAB PO PRN (22:30)
[2020-12-07] MEDS ORDERED: Ondansetron ODT 4 MG TAB SL PRN (22:30)
[2020-12-07 23:06] VITALS: BMI 16.4
[2020-12-07] MEDS ORDERED: Acetaminophen 650 MG Suppository PR PRN (23:11)
[2020-12-08 05:35] LABS: #Basophils 0.1 thou/uL (0.0-0.2); #Eosinphils 0.1 thou/uL (0.0-0.7); #Lymphocytes 1.7 thou/uL (1.20-3.40); #Monocytes 0.9 thou/uL (0.11-0.59); #Neutrophils 16.9 thou/uL (1.40-6.50); %Basophils 0.3 % (0.0-1.0); %Eosinophils 0.5 % (0.0-10.0); %Lymphocytes 8.5 % (21.0-51.0); %Monocytes 4.3 % (0.0-10.0); %Neutrophils 86.4 % (42.0-75.0); Hemoglobin 8.9 g/dL (14.0-18.0); Mean Corpuscular HGB CONC 33.6 g/dL (32.0-36.0); Mean Corpuscular Hemoglobin 30.5 pg (27.0-31.0); Mean Corpuscular Volume 90.9 fL (78.0-98.0); Mean Platelet Volume 7.4 fL (7.4-10.4); Platelet Count 257 thou/uL (130-400); RBC Distribution Width 15.1 % (11.5-14.5); Red Blood Cell (RBC) Count 2.91 mill/uL (4.70-6.10); White Blood Cell (WBC) Count 19.6 thou/uL (4.8-10.8)
[2020-12-08 05:58] LABS: Anion Gap 14 mmol/L (10-20); BUN (Urea Nitrogen) 35 mg/dL (8.4-25.7); Calc. Creatinine Clearance 9 mL/min (70-130); Calcium 7.8 mg/dL (7.8-10.44); Carbon Dioxide 25 mmol/L (23-31); Chloride 104 mmol/L (98-107); Glucose 128 mg/dL (80-115); Potassium 3.7 mmol/L (3.5-5.1); Sodium 139 mmol/L (136-145)
[2020-12-08] MEDS ORDERED: Dextrose 50% Abboject 50 ML SYRINGE SLOW IVP PRN (11:07)
[2020-12-08] MEDS ORDERED: Dextrose 5% in Water 1,000 ML IV PRN (11:07)
[2020-12-08 11:29] LABS: Hemoglobin A1c 5.9 % (4.0-6.0)
[2020-12-08] MEDS ORDERED: Carvedilol 25 MG TAB PO SCH (11:45)
[2020-12-08 11:55] LABS: HBSAg Index 0.22 S/CO (0-0.99); Hep B Surf Ag Non-Reactive S/CO (NonReactive)
[2020-12-08 12:02] LABS: Glucose 93 mg/dL (80-115)
[2020-12-08] MEDS ORDERED: Bacitracin Zinc Ointment 30 gm TUBE ONE ×2 (13:37→13:38)
[2020-12-08] MEDS ORDERED: Fentanyl 100 MCG/2 ML VIAL ONE (13:41)
[2020-12-08] MEDS ORDERED: Ketamine 50 MG/ML (10ML VIAL) ONE (13:56)
[2020-12-08] MEDS ORDERED: Ondansetron PF 4 MG/2 ML Vial ONE (14:10)
[2020-12-08] MEDS ORDERED: Lidocaine 1% PF 5 ML VIAL ONE (14:10)
[2020-12-08] MEDS ORDERED: Dexamethasone 20 MG/5 ML VIAL ONE (14:10)
[2020-12-08] MEDS ORDERED: PROPOFOL 200 MG/20 ML VIAL ONE (14:10)
[2020-12-08] MEDS: hydrALAZINE 25 MG TAB PO SCH ×2 (15:15→20:12)
[2020-12-08] MEDS: metroNIDAZOLE 500 MG TAB PO SCH ×2 (15:16→20:12)
[2020-12-08] MEDS ORDERED: Epoetin (ESRD) 20,000 UNITS/ML SC SCH (16:45)
[2020-12-08] MEDS ORDERED: EPOETIN ALFA-EPBX (ESRD) 4,000 UNIT/ML VIAL SC SCH (16:45)
[2020-12-08] MEDS ORDERED: Cefepime 1 GM in Sodium Chloride 0.9% 100 ML IVPB SCH (17:00)
[2020-12-08] MEDS ORDERED: CEFEPIME HCL IN DEXTROSE 5 % 1 GM in Premix Bag 1 BAG IVPB SCH (17:00)
[2020-12-08] MEDS ORDERED: HYDROcodone/Acetaminophen 5/325 mg Tablet PO PRN ×2 (17:15)
[2020-12-08 17:59] LABS: Glucose 121 mg/dL (80-115)
[2020-12-08] MEDS: Carvedilol 25 MG TAB PO SCH (18:20)
[2020-12-08] MEDS ORDERED: Acetaminophen 325 MG TAB PO PRN (21:40)
[2020-12-08] MEDS: Morphine 2 MG/ML VIAL SLOW IVP PRN (22:40)
[2020-12-09] MEDS: Morphine 2 MG/ML VIAL SLOW IVP PRN ×2 (06:10→20:24)
[2020-12-09 06:16] LABS: Glucose 222 mg/dL (80-115)
[2020-12-09] MEDS ORDERED: Heparin 10,000 UNITS/ 10 ML VIAL ONE (10:24)
[2020-12-09 12:34] LABS: Glucose 121 mg/dL (80-115)
[2020-12-09] MEDS ORDERED: hydrALAZINE 20 MG/ML VIAL SLOW IVP PRN (13:57)
[2020-12-09] MEDS ORDERED: Labetalol HCl 100 MG/20 ML VIAL SLOW IVP PRN (13:57)
[2020-12-09] MEDS ORDERED: Dextrose 50% Abboject 50 ML SYRINGE SLOW IVP PRN (14:00)
[2020-12-09] MEDS ORDERED: Dextrose 5% in Water 1,000 ML IV PRN (14:00)
[2020-12-09] MEDS ORDERED: Cefepime 1 GM in Sodium Chloride 0.9% 100 ML IVPB SCH (17:00)
[2020-12-09] MEDS: Carvedilol 25 MG TAB PO SCH (17:30)
[2020-12-09] MEDS: hydrALAZINE 25 MG TAB PO SCH ×3 (17:30→20:22)
[2020-12-09] MEDS: Amlodipine 10 MG TAB PO SCH (17:30)
[2020-12-09] MEDS: Atorvastatin Calcium 40 MG TAB PO SCH (17:30)
[2020-12-09] MEDS: metroNIDAZOLE 500 MG TAB PO SCH ×2 (17:31→20:22)
[2020-12-09] MEDS: Sodium Bicarbonate Tab 325 MG TAB PO SCH (17:31)
[2020-12-09] MEDS: Cefepime 1 GM in Sodium Chloride 0.9% 100 ML IVPB SCH (21:59)
[2020-12-10 05:39] LABS: #Basophils 0.1 thou/uL (0.0-0.2); #Lymphocytes 2.2 thou/uL (1.20-3.40); #Monocytes 0.7 thou/uL (0.11-0.59); #Neutrophils 13.1 thou/uL (1.40-6.50); %Basophils 0.4 % (0.0-1.0); %Eosinophils 0.3 % (0.0-10.0); %Lymphocytes 13.8 % (21.0-51.0); %Monocytes 4.3 % (0.0-10.0); %Neutrophils 81.2 % (42.0-75.0); Hemoglobin 9.5 g/dL (14.0-18.0); Mean Corpuscular HGB CONC 31.7 g/dL (32.0-36.0); Mean Corpuscular Hemoglobin 28.9 pg (27.0-31.0); Mean Corpuscular Volume 91.2 fL (78.0-98.0); Mean Platelet Volume 7.4 fL (7.4-10.4); Platelet Count 257 thou/uL (130-400); RBC Distribution Width 15.4 % (11.5-14.5); White Blood Cell (WBC) Count 16.1 thou/uL (4.8-10.8)
[2020-12-10 05:59] LABS: Anion Gap 14 mmol/L (10-20); BUN (Urea Nitrogen) 27 mg/dL (8.4-25.7); Calc. Creatinine Clearance 14 mL/min (70-130); Calcium 7.8 mg/dL (7.8-10.44); Carbon Dioxide 26 mmol/L (23-31); Chloride 102 mmol/L (98-107); Glucose 98 mg/dL (80-115); Potassium 4.4 mmol/L (3.5-5.1); Sodium 138 mmol/L (136-145)
[2020-12-10 08:07] LABS: Glucose 90 mg/dL (80-115)
[2020-12-10] MEDS ORDERED: Heparin 10,000 UNITS/ 10 ML VIAL ONE (10:30)
[2020-12-10 12:18] LABS: Glucose 90 mg/dL (80-115)
[2020-12-10] MEDS: Carvedilol 25 MG TAB PO SCH ×2 (15:53→17:22)
[2020-12-10] MEDS: Atorvastatin Calcium 40 MG TAB PO SCH (15:53)
[2020-12-10] MEDS: hydrALAZINE 25 MG TAB PO SCH ×3 (15:53→22:28)
[2020-12-10] MEDS: Amlodipine 10 MG TAB PO SCH (15:53)
[2020-12-10] MEDS: metroNIDAZOLE 500 MG TAB PO SCH ×2 (15:54→22:28)
[2020-12-10] MEDS: Sodium Bicarbonate Tab 325 MG TAB PO SCH (15:54)
[2020-12-10] MEDS ORDERED: Sodium Chloride 0.9% 1,000 ML IV SCH (16:15)
[2020-12-10 17:21] LABS: Glucose 83 mg/dL (80-115)
[2020-12-10] MEDS: Cefepime 1 GM in Sodium Chloride 0.9% 100 ML IVPB SCH (21:20)
[2020-12-11 07:29] LABS: Glucose 71 mg/dL (80-115)
[2020-12-11 08:48] LABS: #Basophils 0.1 thou/uL (0.0-0.2); #Eosinphils 0.1 thou/uL (0.0-0.7); #Lymphocytes 1.7 thou/uL (1.20-3.40); #Monocytes 0.7 thou/uL (0.11-0.59); #Neutrophils 7.7 thou/uL (1.40-6.50); %Basophils 0.7 % (0.0-1.0); %Eosinophils 0.6 % (0.0-10.0); %Lymphocytes 16.5 % (21.0-51.0); %Monocytes 6.6 % (0.0-10.0); %Neutrophils 75.7 % (42.0-75.0); Hemoglobin 9.9 g/dL (14.0-18.0); Mean Corpuscular Hemoglobin 29.8 pg (27.0-31.0); Mean Corpuscular Volume 90.3 fL (78.0-98.0); Mean Platelet Volume 7.2 fL (7.4-10.4); Platelet Count 232 thou/uL (130-400); RBC Distribution Width 15.6 % (11.5-14.5); Red Blood Cell (RBC) Count 3.32 mill/uL (4.70-6.10); White Blood Cell (WBC) Count 10.2 thou/uL (4.8-10.8)
[2020-12-11 09:09] LABS: Anion Gap 14 mmol/L (10-20); BUN (Urea Nitrogen) 20 mg/dL (8.4-25.7); Calc. Creatinine Clearance 19 mL/min (70-130); Calcium 7.8 mg/dL (7.8-10.44); Carbon Dioxide 27 mmol/L (23-31); Chloride 104 mmol/L (98-107); Glucose 68 mg/dL (80-115); Potassium 4.3 mmol/L (3.5-5.1); Sodium 141 mmol/L (136-145)
[2020-12-11] MEDS: Dextrose 5 % And 0.9 % NaCl 1,000 ML IV SCH (10:44)
[2020-12-11] MEDS: Carvedilol 25 MG TAB PO SCH ×2 (17:23→17:25)
[2020-12-11] MEDS: hydrALAZINE 25 MG TAB PO SCH ×2 (17:25→21:20)
[2020-12-11] MEDS: Amlodipine 10 MG TAB PO SCH (17:25)
[2020-12-11] MEDS: Atorvastatin Calcium 40 MG TAB PO SCH (17:25)
[2020-12-11] MEDS: metroNIDAZOLE 500 MG TAB PO SCH ×3 (17:26→21:20)
[2020-12-11] MEDS: Sodium Bicarbonate Tab 325 MG TAB PO SCH (17:27)
[2020-12-11 18:42] LABS: Glucose 88 mg/dL (80-115)
[2020-12-11] MEDS: Cefepime 1 GM in Sodium Chloride 0.9% 100 ML IVPB SCH (21:20)
[2020-12-11 21:49] LABS: Glucose 344 mg/dL (80-115)
[2020-12-11 22:41] LABS: Glucose 292 mg/dL (80-115)
[2020-12-12] MEDS: metroNIDAZOLE 500 MG TAB PO SCH ×3 (09:00→21:08)
[2020-12-12] MEDS: hydrALAZINE 25 MG TAB PO SCH ×3 (09:00→21:07)
[2020-12-12] MEDS: Dextrose 5 % And 0.9 % NaCl 1,000 ML IV SCH (12:56)
[2020-12-12] MEDS: Sodium Bicarbonate Tab 325 MG TAB PO SCH (13:25)
[2020-12-12] MEDS: Amlodipine 10 MG TAB PO SCH (13:25)
[2020-12-12 13:56] LABS: #Basophils 0.1 thou/uL (0.0-0.2); #Eosinphils 0.1 thou/uL (0.0-0.7); #Monocytes 0.6 thou/uL (0.11-0.59); #Neutrophils 6.7 thou/uL (1.40-6.50); %Basophils 0.7 % (0.0-1.0); %Eosinophils 1.1 % (0.0-10.0); %Lymphocytes 21.3 % (21.0-51.0); %Neutrophils 70.9 % (42.0-75.0); Mean Corpuscular Hemoglobin 29.6 pg (27.0-31.0); Mean Corpuscular Volume 89.6 fL (78.0-98.0); Mean Platelet Volume 7.5 fL (7.4-10.4); Platelet Count 192 thou/uL (130-400); RBC Distribution Width 15.6 % (11.5-14.5); Red Blood Cell (RBC) Count 3.39 mill/uL (4.70-6.10); White Blood Cell (WBC) Count 9.4 thou/uL (4.8-10.8)
[2020-12-12 14:08] LABS: Glucose 85 mg/dL (80-115)
[2020-12-12 14:13] LABS: Anion Gap 11 mmol/L (10-20); BUN (Urea Nitrogen) 8 mg/dL (8.4-25.7); Calc. Creatinine Clearance 32 mL/min (70-130); Calcium 7.9 mg/dL (7.8-10.44); Carbon Dioxide 29 mmol/L (23-31); Chloride 104 mmol/L (98-107); Glucose 83 mg/dL (80-115); Potassium 3.2 mmol/L (3.5-5.1); Sodium 141 mmol/L (136-145)
[2020-12-12] MEDS: Carvedilol 25 MG TAB PO SCH ×2 (14:15→17:04)
[2020-12-12] MEDS ORDERED: Heparin 10,000 UNITS/ 10 ML VIAL ONE (14:47)
[2020-12-12] MEDS: Atorvastatin Calcium 40 MG TAB PO SCH (15:42)
[2020-12-12 17:26] LABS: Glucose 126 mg/dL (80-115)
[2020-12-12] MEDS: Cefepime 1 GM in Sodium Chloride 0.9% 100 ML IVPB SCH (21:07)
[2020-12-12 21:13] LABS: Glucose 156 mg/dL (80-115)
[2020-12-13] MEDS: Dextrose 5 % And 0.9 % NaCl 1,000 ML IV SCH (05:06)
[2020-12-13] MEDS: Carvedilol 25 MG TAB PO SCH ×2 (09:22→17:53)
[2020-12-13] MEDS: metroNIDAZOLE 500 MG TAB PO SCH ×3 (09:24→21:57)
[2020-12-13] MEDS: Sodium Bicarbonate Tab 325 MG TAB PO SCH (09:24)
[2020-12-13] MEDS: Amlodipine 10 MG TAB PO SCH (09:29)
[2020-12-13] MEDS: hydrALAZINE 25 MG TAB PO SCH ×3 (09:29→21:58)
[2020-12-13] MEDS: Atorvastatin Calcium 40 MG TAB PO SCH (09:29)
[2020-12-13] MEDS: HumaLOG 300 UNITS/3 ML VIAL SC PRN ×2 (12:39→23:35)
[2020-12-13 17:49] LABS: Glucose 130 mg/dL (80-115)
[2020-12-13 21:23] LABS: Glucose 160 mg/dL (80-115)
[2020-12-13] MEDS: Cefepime 1 GM in Sodium Chloride 0.9% 100 ML IVPB SCH (21:56)
[2020-12-14] MEDS: Dextrose 5 % And 0.9 % NaCl 1,000 ML IV SCH ×2 (04:47→18:16)
[2020-12-14 09:53] LABS: Glucose 144 mg/dL (80-115)
[2020-12-14 10:22] LABS: Anion Gap 7 mmol/L (10-20); BUN (Urea Nitrogen) 19 mg/dL (8.4-25.7); Calc. Creatinine Clearance 15 mL/min (70-130); Calcium 7.4 mg/dL (7.8-10.44); Carbon Dioxide 26 mmol/L (23-31); Chloride 109 mmol/L (98-107); Glucose 159 mg/dL (80-115); Potassium 3.2 mmol/L (3.5-5.1); Sodium 139 mmol/L (136-145)
[2020-12-14] MEDS: Carvedilol 25 MG TAB PO SCH ×2 (10:24→18:16)
[2020-12-14] MEDS: hydrALAZINE 25 MG TAB PO SCH ×2 (10:24→15:38)
[2020-12-14] MEDS: Atorvastatin Calcium 40 MG TAB PO SCH (10:24)
[2020-12-14] MEDS: Amlodipine 10 MG TAB PO SCH (10:24)
[2020-12-14] MEDS: Sodium Bicarbonate Tab 325 MG TAB PO SCH (10:25)
[2020-12-14] MEDS: metroNIDAZOLE 500 MG TAB PO SCH (10:25)
[2020-12-14 13:16] LABS: Glucose 113 mg/dL (80-115)
[2020-12-14 16:22] VITALS: BP 170/85; TEMP 97.5
== END 2020-12-14 19:06 | disposition hospice, home (50) | DRG 853 ==
LOC: ERS 15:07 → SURG A 20:03
PROVIDERS: ADMIT Student in an Organized Health Care Education/Training Program; ATTEND Internal Medicine
PROC: 0Y6H0Z1 Detachment at Right Lower Leg, High, Open Approach (ICD-10-PCS; principal; 2020-12-08)
PROC: 5A1D70Z Performance of Urinary Filtration, Intermittent, Less than 6 Hours Per Day (ICD-10-PCS; 2020-12-08)
DX: A41.9 Sepsis, unspecified organism (principal); N18.6 End stage renal disease; G93.41 Metabolic encephalopathy; E43 Unspecified severe protein-calorie malnutrition; E11.52 Type 2 diabetes mellitus with diabetic peripheral angiopathy with gangrene; M86.9 Osteomyelitis, unspecified; L03.115 Cellulitis of right lower limb; I96 Gangrene, not elsewhere classified; I12.0 Hypertensive chronic kidney disease with stage 5 chronic kidney disease or end stage renal disease; I69.354 Hemiplegia and hemiparesis following cerebral infarction affecting left non-dominant side; Z68.1 Body mass index [BMI] 19.9 or less, adult; Z51.5 Encounter for palliative care; Z20.822 Contact with and (suspected) exposure to COVID-19; E11.69 Type 2 diabetes mellitus with other specified complication; R62.7 Adult failure to thrive; D64.9 Anemia, unspecified; E78.5 Hyperlipidemia, unspecified; E11.22 Type 2 diabetes mellitus with diabetic chronic kidney disease; Z89.422 Acquired absence of other left toe(s); Z99.2 Dependence on renal dialysis
CPT/HCPCS: 36415; 36416; 70450; 71045; 80048; 80053; 82550; 82947; 83036; 83605; 83735; 84484; 85025; 87040; 87340; 88307; 88311; 90935; 93005; 96365; 96368; G0257; J0360; J0692; J1100; J1644; J1815; J2270; J2405; J2704; J3010; J3370; J3490; J7042; J7050; Q5105; U0002